=== PATIENT | female | born 1955 | race Caucasian/White ===

== ENCOUNTER 2016-10-05 14:55 | Inpatient (IN) | payer OTHER ==
[2016-10-05 17:54] VITALS: BMI 25.2
--- NOTE | 2016-10-05 18:21 | HP ---
COWS - Scale Resting Pulse: 1= ID [id number] Sweatin= Chills/Flushing Restless Observation: 1= Difficult to Sit Still Pupil Size: 1= Pupils >than Normal Bone or Joint Aches: 2= Severe Diffuse Aches Runny Nose/ Eye Tearin= Nasal Congestion GI Upset > 30mins: 2= Nausea/Diarrhea Tremor Observation: 2= Slight Tremor Visible Yawning Observation: 1= 1-2x During Session Anxiety or Irritability: 2=Irritable/Anxious Goose Flesh Skin: 0=Smooth Skin COWS Score: 14 Admission ROS S - [facility] Chief Complaint: withdrawal sx Allergies/Adverse Reactions: Allergies Allergy/AdvReac Type Severity Reaction Status Date / Time sulfur [From Sulfur-8] Allergy Unknown Verified 10/05/16 18:03 sulfur dioxide Allergy Verified 10/05/16 18:03 History of Present Illness: 60 years old female with long history of opiate nicotine dependence, lumbar arthritis, diabetes ii, gerd, hyperlipidemia, and anxiety depression is admitted to detox Exam Limitations: No Limitations - Ebola screening Have you traveled outside of the country in the last 21 days: No Have you had contact with anyone from an Ebola affected area: No Have you been sick,other than usual withdrawal symptoms: No Do you have a fever: No - Review of Systems Constitutional: Chills, Changes in sleep, Weight Stable EENT: reports: No Symptoms Reported Respiratory: reports: SOB with Exertion Cardiac: reports: No Symptoms Reported GI: reports: Diarrhea, Nausea, Poor Fluid Intake, Indigestion, Abdominal cramping : reports: No Symptoms Reported Musculoskeletal: reports: Back Pain, Joint Pain, Muscle Pain, Neck Pain Integumentary: reports: Change in Color, Lumps (iv opiate right inner fore arm) Neuro: reports: Tremors Endocrine: reports: No Symptoms Reported Hematology: reports: No Symptoms Reported Psychiatric: reports: Judgement Intact, Orientated x3, Anxious, Depressed Other Systems: Reviewed and Negative Patient History - Patient Medical History Hx Anemia: No Hx Asthma: Yes Hx Chronic Obstructive Pulmonary Disease (COPD): No Hx Cancer: No Hx Cardiac Disorders: No Hx Congestive Heart Failure: No Hx Hypertension: No Hx Hypercholesterolemia: Yes Hx Pacemaker: No HX Cerebrovascular Accident: No Hx Seizures: No Hx Dementia: No Hx Diabetes: Yes Hx Gastrointestinal Disorders: Yes Hx Liver Disease: No Hx Genitourinary Disorders: No Hx Sexually Transmitted Disorders: No Hx Renal Disease (ESRD): No Hx Thyroid Disease: No Hx Human Immunodeficiency Virus (HIV): No Hx Hepatitis C: No Hx Depression: Yes Hx Suicide Attempt: Yes (12 years old cut left wrist) Hx Bipolar Disorder: No Hx Schizophrenia: No - Patient Surgical History Past Surgical History: No - PPD History Previous Implant?: Yes Documented Results: Positive w/o proof Implanted On Prior R Admission?: No PPD to be Administered?: No - Reproductive History Patient is a Female of Child Bearing Age (11 -55 yrs old): No Patient : No - Smoking Cessation Smoking history: Current every day smoker Have you smoked in the past 12 months: Yes Aproximately how many cigarettes per day: 10 Cigars Per Day: 0 Hx Chewing Tobacco Use: No Initiated information on smoking cessation: Yes 'Breaking Loose' booklet given: 10/05/16 - Substance & Tx. History Hx Alcohol Use: No Hx Substance Use: Yes Substance Use Type: Cocaine, Opiates Hx Substance Use Treatment: Yes - Substances Abused Heroin Route: Injection Frequency: Daily Amount used: 4 bags Age of first use: 25 Date of Last Use: 10/05/16 Family Disease History - Family Disease History Family Disease History: Diabetes: Grandparent, Other: Father ( renal), Mother (alzeihmer) Admission Physical Exam S - Vital Signs Vital Signs: Vital Signs - 24 hr 10/05/16 17:51 Temperature 97.1 F L Pulse Rate 84 Respiratory 18 Rate Blood Pressure 113/67 - Physical General Appearance: Yes: Nourished, Appropriately Dressed, Mild Distress, Tremorous, Irritable, Sweating, Anxious HEENTM: Yes: Hearing grossly Normal, Normal ENT Inspection, Normocephalic, Normal Voice Respiratory: Yes: Chest Non-Tender, No Respiratory Distress, No Accessory Muscle Use, Wheezing, Expiration Neck: Yes: Supple, Trachea in good position Breast: Yes: Breasts Symetrical Cardiology: Yes: Regular Rhythm, Regular Rate, S1, S2 Abdominal: Yes: Non Tender, Soft, Increased Bowel Sounds Genitourinary: Yes: Within Normal Limits Back: Yes: Normal Inspection Musculoskeletal: Yes: full range of Motion, Gait Steady, Back pain, Muscle Pain Extremities: Yes: Normal Range of Motion, Non-Tender, Tremors, Swelling (right inner fore arm) Neurological: Yes: Fully Oriented, Alert, Motor Strength 5/5, Normal Response, Depressed Affect Integumentary: Yes: Warm, Track Hernandez Lymphatic: Yes: Within Normal Limits - Diagnostic (1) Opioid dependence with withdrawal Current Visit: Yes Status: Acute (2) Cocaine dependence, uncomplicated Current Visit: Yes Status: Chronic (3) GERD (gastroesophageal reflux disease) Current Visit: Yes Status: Acute Qualifiers: Esophagitis presence: without esophagitis Qualified Code(s): K21.9 - Gastro-esophageal reflux disease without esophagitis (4) Diabetes mellitus, type II, insulin dependent Current Visit: Yes Status: Acute (5) Chronic back pain Current Visit: Yes Status: Acute Qualifiers: Back pain location: low back pain Back pain laterality: left Sciatica presence: without sciatica Qualified Code(s): M54.5 - Low back pain; G89.29 - Other chronic pain (6) Hyperlipidemia associated with type 2 diabetes mellitus Current Visit: Yes Status: Acute (7) Anxiety and depression Current Visit: Yes Status: Suspected (8) Neuropathy Current Visit: Yes Status: Acute (9) Asthma Current Visit: Yes Status: Acute Qualifiers: Asthma severity: mild intermittent Asthma complication type: with status asthmaticus Qualified Code(s): J45.22 - Mild intermittent asthma with status asthmaticus (10) Nicotine dependence Current Visit: Yes Status: Acute Qualifiers: Nicotine product type: cigarettes Substance use status: in withdrawal Qualified Code(s): F17.213 - Nicotine dependence, cigarettes, with withdrawal (11) Cellulitis Current Visit: Yes Status: Acute Qualifiers: Site of cellulitis: extremity Site of cellulitis of extremity: upper extremity Laterality: right Qualified Code(s): L03.113 - Cellulitis of right upper limb (12) Positive PPD Current Visit: Yes Status: Resolved Cleared for Admission S - Detox or Rehab [facility] Level of Care: Medically Managed Detox Regimen/Protocol: Methadone [facility] Breath Alcohol Content Breath Alcohol Content: 0 Urine Pregancy Test - Result Urine Test Results: Negative- NO Line Present Urine Drug Screen - Results Drug Screen Negative: No Urine Drug Screen Results: MUKUND-Cocaine, OPI-Opiates, OXY-Oxycodone
[2016-10-05] MEDS ORDERED: MAGNESIUM CITRATE 300 ML BOTTLE PO PRN (18:32)
[2016-10-05] MEDS ORDERED: P-EPHED 60MG/TRIPROLIDI 2.5MG TABLET PO PRN (18:32)
[2016-10-05] MEDS ORDERED: MAGNESIUM HYDROX 2400MG/30ML ORAL SUSPENSION 30 ML CUP PO PRN (18:32)
[2016-10-05] MEDS ORDERED: diphenhydrAMINE HCL 50 MG CAPSULE PO PRN (18:32)
[2016-10-05] MEDS ORDERED: METHADONE HCL 10 MG TABLET (FOR DETOX USE ONLY) PO ONE ×2 (18:32→23:00)
[2016-10-05] MEDS ORDERED: guaiFENesin/D-METHORPHAN HB 10 ML UNIT-DOSE CUPS PO PRN (18:32)
[2016-10-05] MEDS ORDERED: MENTHOL/PHENOL 1 EACH UD MM PRN (18:32)
[2016-10-05] MEDS ORDERED: LOPERAMIDE HCL 2 MG CAPSULE PO PRN (18:32)
[2016-10-05] MEDS ORDERED: MAG HYDROX/AL HYDROX/SIMETH 30 ML UNIT-DOSE CUP PO PRN (18:32)
[2016-10-05] MEDS ORDERED: ALBUTEROL SO4 6.7 GM HFA INHALER IH PRN (18:41)
[2016-10-05] MEDS: NICOTINE POLACRILEX 2 MG GUM BC PRN (20:02)
[2016-10-05] MEDS: ACETAMINOPHEN 325 MG TABLET (FP) PO PRN (20:02)
[2016-10-05] MEDS: diazePAM 5 MG TABLET PO PRN (20:02)
[2016-10-05] MEDS: ATORVASTATIN CA 20 MG TABLET (FP) PO SCH (22:44)
[2016-10-05] MEDS: PREGABALIN 100 MG CAPSULE PO SCH (22:44)
[2016-10-05] MEDS: THIAMINE HCL 100 MG TABLET (FP) PO SCH (22:44)
[2016-10-05] MEDS: RANITIDINE HCL 150 MG TABLET (FP) PO SCH (22:44)
[2016-10-05] MEDS: INSULIN SLIDING SCALE (NOVOLOG) 1 VIAL SQ SCH (22:48)
[2016-10-05] MEDS: BACLOFEN 10 MG TABLET (FP) PO SCH (22:48)
[2016-10-05] MEDS: CEPHALEXIN MONOHYDRATE 500 MG CAPSULE (UD) PO SCH (23:39)
[2016-10-06] MEDS: CEPHALEXIN MONOHYDRATE 500 MG CAPSULE (UD) PO SCH ×4 (06:04→23:36)
[2016-10-06] MEDS: PREGABALIN 100 MG CAPSULE PO SCH ×3 (06:04→22:31)
[2016-10-06] MEDS: INSULIN SLIDING SCALE (NOVOLOG) 1 VIAL SQ SCH ×3 (07:27→17:30)
--- NOTE | 2016-10-06 08:37 | CONSULT ---
[facility] Psychiatric Consult - Data Date of interview: 10/06/16 Admission source: [facility] Identifying data: This is 60 years old female with psychiatric hospitalization history intoxicated with: Cocain, Heroin, Nicotine Substance Abuse History: - Results. Drug Screen Negative: No. Urine Drug Screen Results: MUKUND-Cocaine, OPI-Opiates, OXY-Oxycodone. - Smoking Cessation. Smoking history: Current every day smoker. Have you smoked in the past 12 months: Yes. Aproximately how many cigarettes per day: 10. Cigars Per Day: 0. Hx Chewing Tobacco Use: No. Initiated information on smoking cessation: Yes. 'Breaking Loose' booklet given: 10/05/16. - Substance & Tx. History. Hx Alcohol Use: No. Hx Substance Use: Yes. Substance Use Type: Cocaine, Opiates. Hx Substance Use Treatment: Yes. - Substances Abused. Heroin. Route: Injection. Frequency: Daily. Amount used: 4 bags. Age of first use: 25. Date of Last Use: 10/05/16 Medical History: Asthma, Cellu;litis history, LBP, DM-2, GERD, Muscle neuropathy , PPD+ history Psychiatric History: Patient reports histopry of depression and anxiety, reports unclear psychiatric admission on more then 5 years ago, poor historyan, reports taking prior to admission: Buspar 5mg po bid. Ambien 10mg po qhs. Zoiloft 10-0mg poqd Physical/Sexual Abuse/Trauma History: Denies, unclear Additional Comment: Drug Screen Negative: No. Urine Drug Screen Results: MUKUND- Cocaine, OPI-Opiates, OXY-Oxycodone. Buspar 5mg po bid. Ambien 10mg po qhs. Zoiloft 10-0mg poqd Mental Status Exam - Mental Status Exam Alert and Oriented to: Person Cognitive Function: Fair Patient Appearance: Unkempt Mood: Sad Affect: Flat Patient Behavior: Sedated Speech Pattern: Delayed Voice Loudness: Mildly Soft/Quiet Thought Process: Circumstantial Thought Disorder: Being Controlled Hallucinations: Denies Suicidal Ideation: Denies Homicidal Ideation: Denies Insight/Judgement: Fair Sleep: Difficulty falling asleep Appetite: Weight gain Muscle strength/Tone: Mild Hypotonicity Gait/Station: Shuffling Additional Comments: Buspar 5mg po bid. Ambien 10mg po qhs. Zoiloft 10-0mg poqd Psychiatric Findings - Problem List ([place] 1, 2,3) (1) Cellulitis Current Visit: Yes Status: Acute Qualifiers: Site of cellulitis: extremity Site of cellulitis of extremity: upper extremity Laterality: right Qualified Code(s): L03.113 - Cellulitis of right upper limb (2) Nicotine dependence Current Visit: Yes Status: Acute Qualifiers: Nicotine product type: cigarettes Substance use status: in withdrawal Qualified Code(s): F17.213 - Nicotine dependence, cigarettes, with withdrawal (3) Opioid dependence with withdrawal Current Visit: Yes Status: Acute (4) Cocaine dependence, uncomplicated Current Visit: Yes Status: Chronic (5) Anxiety and depression Current Visit: Yes Status: Suspected (6) Drug-induced mood disorder Current Visit: Yes Status: Acute - Initial Treatment Plan Initial Treatment Plan: Buspar 5mg po bid. Ambien 10mg po qhs. Zoiloft 10-0mg poqd
[2016-10-06] MEDS: ACETAMINOPHEN 325 MG TABLET (FP) PO PRN (09:00)
[2016-10-06] MEDS ORDERED: METHADONE HCL 10 MG TABLET (FOR DETOX USE ONLY) PO ONE ×2 (10:00→14:06)
[2016-10-06] MEDS ORDERED: NICOTINE 14 MG/24 HOURS TOPICAL PATCH TD SCH (10:00)
[2016-10-06 10:04] LABS: MCH 27.8 pg (25.7-33.7); MCHC 32.3 g/dl (32.0-36.0); MEAN CELL VOLUME 86.1 fl (80-96); MEAN PLT VOLUME 10.4 fl (7.5-11.1); PLATELET COUNT 155 K/MM3 (134-434); RDW 15.1 % (11.6-15.6); WHITE BLOOD COUNT 7.7 K/mm3 (4.0-10.0)
--- NOTE | 2016-10-06 10:06 | PN ---
[facility] COWS - Scale Resting Pulse: 0= [place] 80 or Below Sweatin= Chills/Flushing Restless Observation: 3= Extraneous Movement Pupil Size: 1= Pupils >than Normal Bone or Joint Aches: 2= Severe Diffuse Aches Runny Nose/ Eye Tearin= Runny Nose/Eyes GI Upset > 30mins: 2= Nausea/Diarrhea Tremor Observation of Outstretched Hands: 2= Slight Tremor Visible Yawning Observation: 2= >3x During Session Anxiety or Irritability: 2=Irritable/Anxious Goose Flesh Skin: 0=Smooth Skin COWS Score: 17 BHS Progress Note (SOAP) Subjective: ALERT,IRRITABLE,ANXIOUS,INTERRUPTED SLEEP,TREMOR,PAIN IN THE BODY AND BACK Objective: 10/06/16 10:04 Vital Signs Temperature 98.2 F 10/06/16 09:52 Pulse Rate 63 10/06/16 09:52 Respiratory Rate 18 10/06/16 09:52 Blood Pressure 102/65 10/06/16 09:52 O2 Sat by Pulse Oximetry (%) EKG NSR WITH SINUS ARRHYTHMIA NO CHEST PAIN,NO SOB,NO DIZZINESS Laboratory Last Values POC Glucometer 102 UNITS (()) 10/06/16 06:10 LABS PENDING Assessment: 10/06/16 10:06 WITHDRAWAL SYMPTOM Plan: CONTINUE DETOX,LIDODERM PATCH
[2016-10-06 10:22] LABS: ALBUMIN 3.7 g/dl (3.4-5.0); ALK PHOS 106 U/L (45-117); ANION GAP 8 (8-16); BILIRUBIN,TOTAL 0.3 mg/dL (0.2-1.0); CALCIUM 9.1 mg/dL (8.5-10.1); CO2 25 mmol/L (21-32); COCKROFT - GAULT 69.9635; CREATININE 0.9 mg/dL (0.55-1.02); GLUCOSE,RANDOM 94 mg/dL (74-106); SGOT/AST 30 U/L (15-37); SGPT/ALT 38 U/L (12-78); TOT PROT 7.3 g/dl (6.4-8.2)
[2016-10-06] MEDS: busPIRone HCL 5 MG TABLET PO SCH ×2 (11:17→22:31)
[2016-10-06] MEDS: ASPIRIN 81 MG CHEWABLE TABLETS PO SCH (11:17)
[2016-10-06] MEDS: LIDOCAINE 5% TOPICAL PATCH TP SCH (11:18)
[2016-10-06] MEDS: PRENATAL VITAMINS W/ FOLIC ACID TABLET (FP) PO SCH (11:18)
[2016-10-06] MEDS: SERTRALINE HCL 50 MG TABLET (FP) PO SCH (11:23)
[2016-10-06] MEDS: RANITIDINE HCL 150 MG TABLET (FP) PO SCH ×2 (11:23→22:31)
[2016-10-06] MEDS ORDERED: INSULIN (NOVOLOG) ASPART 100 UNITS/ML 10ML VIAL ONE (11:35)
--- NOTE | 2016-10-06 13:51 | PN ---
S Progress Note Note: patient did not receive methadone 20 mgs at 10 am,and lidoderm patch at 10 am now alert,oriented x3 ambulation demanding for medications methadone 20 mgs po now and lidoderm patch close monitoring
--- NOTE | 2016-10-06 13:58 | PN ---
[facility] Progress Note Note: attempted to reach [facility] for information unsuccessful
[2016-10-06] MEDS: NICOTINE POLACRILEX 2 MG GUM BC PRN ×2 (14:00→17:24)
--- NOTE | 2016-10-06 14:00 | PN ---
S Progress Note Note: addendum please disrecard note on this patient at 13.57,belong to other patient
[2016-10-06] MEDS ORDERED: LIDOCAINE 5% TOPICAL PATCH TP ONE (14:07)
[2016-10-06] MEDS: METHADONE HCL 10 MG TABLET (FOR DETOX USE ONLY) PO ONE (14:16)
[2016-10-06] MEDS: CYCLOBENZAPRINE HCL 10 MG TABLET (FP) PO PRN (17:52)
[2016-10-06] MEDS: NICOTINE 14 MG/24 HOURS TOPICAL PATCH TD SCH (19:58)
[2016-10-06] MEDS: ATORVASTATIN CA 20 MG TABLET (FP) PO SCH (22:31)
[2016-10-06] MEDS: THIAMINE HCL 100 MG TABLET (FP) PO SCH (22:31)
[2016-10-06] MEDS: BACLOFEN 10 MG TABLET (FP) PO SCH (22:55)
[2016-10-07] MEDS: CEPHALEXIN MONOHYDRATE 500 MG CAPSULE (UD) PO SCH ×4 (05:43→23:02)
[2016-10-07] MEDS: PREGABALIN 100 MG CAPSULE PO SCH ×3 (05:43→22:16)
[2016-10-07] MEDS: INSULIN SLIDING SCALE (NOVOLOG) 1 VIAL SQ SCH (07:11)
[2016-10-07] MEDS: CYCLOBENZAPRINE HCL 10 MG TABLET (FP) PO PRN (08:48)
--- NOTE | 2016-10-07 09:24 | PN ---
[facility] COWS - Scale Resting Pulse: 0= [place] 80 or Below Sweatin= Chills/Flushing Restless Observation: 3= Extraneous Movement Pupil Size: 1= Pupils >than Normal Bone or Joint Aches: 2= Severe Diffuse Aches Runny Nose/ Eye Tearin= Runny Nose/Eyes GI Upset > 30mins: 3= Vomiting/Diarrhea Tremor Observation of Outstretched Hands: 2= Slight Tremor Visible Yawning Observation: 1= 1-2x During Session Anxiety or Irritability: 2=Irritable/Anxious Goose Flesh Skin: 0=Smooth Skin COWS Score: 17 BHS Progress Note (SOAP) Subjective: alert,irritable,anxious,pain in body and back,anxious,pain in the back Objective: 10/07/16 09:23 Vital Signs Temperature 97.2 F L 10/07/16 06:38 Pulse Rate 64 10/07/16 06:38 Respiratory Rate 16 10/07/16 06:38 Blood Pressure 113/71 10/07/16 06:38 O2 Sat by Pulse Oximetry (%) Laboratory Last Values WBC 7.7 K/mm3 (4.0-10.0) 10/06/16 07:30 RBC 4.32 M/mm3 (3.60-5.2) 10/06/16 07:30 Hgb 12.0 GM/dL (10.7-15.3) 10/06/16 07:30 Hct 37.3 % (32.4-45.2) 10/06/16 07:30 MCV 86.1 fl (80-96) 10/06/16 07:30 MCHC 32.3 g/dl (32.0-36.0) 10/06/16 07:30 RDW 15.1 % (11.6-15.6) 10/06/16 07:30 Plt Count 155 K/MM3 (134-434) 10/06/16 07:30 MPV 10.4 fl (7.5-11.1) 10/06/16 07:30 Sodium 141 mmol/L (136-145) 10/06/16 07:30 Potassium 4.0 mmol/L (3.5-5.1) 10/06/16 07:30 Chloride 108 mmol/L (98-107) H 10/06/16 07:30 Carbon Dioxide 25 mmol/L (21-32) 10/06/16 07:30 Anion Gap 8 (8-16) 10/06/16 07:30 BUN 15 mg/dL (7-18) 10/06/16 07:30 Creatinine 0.9 mg/dL (0.55-1.02) 10/06/16 07:30 Creat Clearance w eGFR > 60 (>60) 10/06/16 07:30 POC Glucometer 133 UNITS (()) 10/07/16 05:49 Random Glucose 94 mg/dL (74-106) 10/06/16 07:30 Calcium 9.1 mg/dL (8.5-10.1) 10/06/16 07:30 Total Bilirubin 0.3 mg/dL (0.2-1.0) 10/06/16 07:30 AST 30 U/L (15-37) 10/06/16 07:30 ALT 38 U/L (12-78) 10/06/16 07:30 Alkaline Phosphatase 106 U/L (45-117) 10/06/16 07:30 Total Protein 7.3 g/dl (6.4-8.2) 10/06/16 07:30 Albumin 3.7 g/dl (3.4-5.0) 10/06/16 07:30 RPR Titer Nonreactive (NONREACTIVE) 10/06/16 07:30 Assessment: 10/07/16 09:24 withdrawal symptom Plan: continue detox,bgm monitoring
[2016-10-07] MEDS ORDERED: METHADONE HCL 5 MG TABLET (FOR DETOX USE ONLY) PO ONE (10:00)
[2016-10-07] MEDS: ASPIRIN 81 MG CHEWABLE TABLETS PO SCH (10:37)
[2016-10-07] MEDS: busPIRone HCL 5 MG TABLET PO SCH ×2 (10:37→22:16)
[2016-10-07] MEDS: SERTRALINE HCL 50 MG TABLET (FP) PO SCH (10:37)
[2016-10-07] MEDS: PRENATAL VITAMINS W/ FOLIC ACID TABLET (FP) PO SCH (10:37)
[2016-10-07] MEDS: RANITIDINE HCL 150 MG TABLET (FP) PO SCH ×2 (10:37→22:16)
[2016-10-07] MEDS: NICOTINE 14 MG/24 HOURS TOPICAL PATCH TD SCH (10:38)
[2016-10-07] MEDS: diazePAM 5 MG TABLET PO PRN ×3 (10:41→22:19)
[2016-10-07] MEDS: LIDOCAINE 5% TOPICAL PATCH TP SCH (10:42)
--- NOTE | 2016-10-07 11:50 | EKG ---
Test Reason : Blood Pressure : / mmHG Vent. Rate : 071 BPM Atrial Rate : 071 BPM P-R Int : 126 ms QRS Dur : 072 ms QT Int : 414 ms P-R-T Axes : 041 070 063 degrees QTc Int : 449 ms SINUS RHYTHM WITH MARKED SINUS ARRHYTHMIA SEPTAL INFARCT , AGE UNDETERMINED ABNORMAL ECG NO PREVIOUS ECGS AVAILABLE Confirmed by KAMLA EDMONDS MD ([id number]) on 10/07/2016 11:50:06 AM Referred By: Yusuf Jackson Confirmed By:KAMLA EDMONDS MD
[2016-10-07] MEDS: HYDROCORTISONE 1% TOPICAL CREAM 30 GM TUBE TP SCH ×2 (14:09→22:20)
[2016-10-07] MEDS: ATORVASTATIN CA 20 MG TABLET (FP) PO SCH (22:16)
[2016-10-07] MEDS: THIAMINE HCL 100 MG TABLET (FP) PO SCH (22:16)
[2016-10-07] MEDS: ZOLPIDEM TARTRATE 10 MG TABLET (PARK CARE ONLY) PO PRN (22:16)
[2016-10-07] MEDS: BACLOFEN 10 MG TABLET (FP) PO SCH (23:02)
[2016-10-08] MEDS: CEPHALEXIN MONOHYDRATE 500 MG CAPSULE (UD) PO SCH ×3 (05:25→17:07)
[2016-10-08] MEDS: PREGABALIN 100 MG CAPSULE PO SCH ×3 (05:25→22:27)
[2016-10-08] MEDS: INSULIN SLIDING SCALE (NOVOLOG) 1 VIAL SQ SCH (07:46)
--- NOTE | 2016-10-08 08:26 | PN ---
S Progress Note (SOAP) Subjective: ALERT,IRRITABLE,ANXIOUS,INTERRUPTED SLEEP,PAIN IN THE BODY AND BACK Objective: 10/08/16 08:22 Vital Signs Temperature 97.7 F 10/08/16 06:00 Pulse Rate 61 10/08/16 06:00 Respiratory Rate 18 10/08/16 06:00 Blood Pressure 117/70 10/08/16 06:00 O2 Sat by Pulse Oximetry (%) CHEST XRAY ON 10/06/16 SHOWED MASS 3.7 CM IN RIGHT UPPER LOBE [place] REGION ON 10/06/[address] OF CHEST TO BE DONE SCHEDULE AT [facility] TODAY 10/08/16 08:29 Assessment: 10/08/16 08:32 WITHDRAWAL SYMPTOM Plan: CONTINUE DETOX
[2016-10-08] MEDS: diazePAM 5 MG TABLET PO PRN (09:09)
[2016-10-08] MEDS: ASPIRIN 81 MG CHEWABLE TABLETS PO SCH (09:09)
[2016-10-08] MEDS: busPIRone HCL 5 MG TABLET PO SCH ×2 (09:09→22:27)
[2016-10-08] MEDS: RANITIDINE HCL 150 MG TABLET (FP) PO SCH ×2 (09:10→22:27)
[2016-10-08] MEDS: SERTRALINE HCL 50 MG TABLET (FP) PO SCH (09:10)
[2016-10-08] MEDS: NICOTINE 14 MG/24 HOURS TOPICAL PATCH TD SCH (09:14)
[2016-10-08] MEDS: LIDOCAINE 5% TOPICAL PATCH TP SCH (09:15)
[2016-10-08] MEDS: PRENATAL VITAMINS W/ FOLIC ACID TABLET (FP) PO SCH (09:30)
[2016-10-08] MEDS ORDERED: METHADONE HCL 5 MG TABLET (FOR DETOX USE ONLY) PO ONE (10:00)
[2016-10-08 10:08] LABS: URINE APPEARANCE CLEAR; URINE BILIRUBIN NEGATIVE (NEGATIVE); URINE BLOOD NEGATIVE (NEGATIVE); URINE COLOR STRAW; URINE GLUCOSE (UA) NEGATIVE (NEGATIVE); URINE KETONE NEGATIVE (NEGATIVE); URINE NITRITE NEGATIVE (NEGATIVE); URINE PROTEIN NEGATIVE (NEGATIVE); URINE UROBILINOGEN NEGATIVE E.U./dl (0.2-1.0)
[2016-10-08 10:09] LABS: URINE LEUK ESTERASE TRACE (NEGATIVE)
[2016-10-08 10:11] LABS: URINE BACTERIA RARE /hpf (NONE SEEN); URINE MUCUS RARE; URINE RBC <1 /hpf (0-3); URINE WBC 3 /hpf (3-5)
[2016-10-08] MEDS: HYDROCORTISONE 1% TOPICAL CREAM 30 GM TUBE TP SCH ×2 (11:33→23:30)
[2016-10-08] MEDS: CYCLOBENZAPRINE HCL 10 MG TABLET (FP) PO PRN (17:07)
[2016-10-08] MEDS: ZOLPIDEM TARTRATE 10 MG TABLET (PARK CARE ONLY) PO PRN (22:27)
[2016-10-08] MEDS: THIAMINE HCL 100 MG TABLET (FP) PO SCH (22:27)
[2016-10-08] MEDS: ATORVASTATIN CA 20 MG TABLET (FP) PO SCH (22:27)
[2016-10-08] MEDS: BACLOFEN 10 MG TABLET (FP) PO SCH (22:28)
[2016-10-09] MEDS: CEPHALEXIN MONOHYDRATE 500 MG CAPSULE (UD) PO SCH (00:45)
[2016-10-09] MEDS: PREGABALIN 100 MG CAPSULE PO SCH ×3 (05:40→22:17)
[2016-10-09] MEDS: CYCLOBENZAPRINE HCL 10 MG TABLET (FP) PO PRN ×3 (05:41→17:15)
[2016-10-09] MEDS: INSULIN SLIDING SCALE (NOVOLOG) 1 VIAL SQ SCH (06:20)
[2016-10-09] MEDS: ASPIRIN 81 MG CHEWABLE TABLETS PO SCH (11:00)
[2016-10-09] MEDS: SERTRALINE HCL 50 MG TABLET (FP) PO SCH (11:01)
[2016-10-09] MEDS: busPIRone HCL 5 MG TABLET PO SCH ×2 (11:01→22:17)
[2016-10-09] MEDS: METHADONE HCL 10 MG TABLET (FOR DETOX USE ONLY) PO ONE (11:01)
[2016-10-09] MEDS: RANITIDINE HCL 150 MG TABLET (FP) PO SCH ×2 (11:01→22:18)
[2016-10-09] MEDS: PRENATAL VITAMINS W/ FOLIC ACID TABLET (FP) PO SCH (11:01)
[2016-10-09] MEDS: HYDROCORTISONE 1% TOPICAL CREAM 30 GM TUBE TP SCH ×2 (11:02→22:18)
[2016-10-09] MEDS: NICOTINE 14 MG/24 HOURS TOPICAL PATCH TD SCH (11:02)
[2016-10-09] MEDS: LIDOCAINE 5% TOPICAL PATCH TP SCH (11:02)
--- NOTE | 2016-10-09 13:21 | PN ---
BHS Progress Note (SOAP) Subjective: ALERT,IRRITABLE,INTERRUPTED SLEEP Objective: 10/09/16 13:20 Vital Signs Temperature 99.1 F 10/09/16 10:22 Pulse Rate 76 10/09/16 10:22 Respiratory Rate 18 10/09/16 10:22 Blood Pressure 112/68 10/09/16 10:22 O2 Sat by Pulse Oximetry (%) Assessment: 10/09/16 13:21 WITHDRAWAL SYMPTOM 10/09/16 13:23 CT OF CHEST REPORT NOTED Plan: WITHDRAWAL SYMPTOM,EXPLAINED TO PATIENT FOR THE CT OF CHEST REPORT, ADVISE PATIENT TO GO TO SEE HER PMD ON Tue10/11/16 FOR EVALUATION AND TREATMENT AND REFER TO SPECIALIST
[2016-10-09] MEDS: BACLOFEN 10 MG TABLET (FP) PO SCH (22:17)
[2016-10-09] MEDS: THIAMINE HCL 100 MG TABLET (FP) PO SCH (22:17)
[2016-10-09] MEDS: ATORVASTATIN CA 20 MG TABLET (FP) PO SCH (22:17)
[2016-10-09] MEDS: ZOLPIDEM TARTRATE 10 MG TABLET (PARK CARE ONLY) PO PRN (22:17)
[2016-10-10] MEDS: PREGABALIN 100 MG CAPSULE PO SCH (05:32)
[2016-10-10] MEDS: CYCLOBENZAPRINE HCL 10 MG TABLET (FP) PO PRN (05:34)
[2016-10-10] MEDS ORDERED: METHADONE HCL 5 MG TABLET (FOR DETOX USE ONLY) PO ONE (06:00)
[2016-10-10] MEDS: INSULIN SLIDING SCALE (NOVOLOG) 1 VIAL SQ SCH (07:43)
--- NOTE | 2016-10-10 08:49 | PN ---
S Progress Note (SOAP) Subjective: ALERT,NO COMPLAINT Objective: 10/10/16 08:43 Vital Signs Temperature 98.1 F 10/10/16 06:45 Pulse Rate 73 10/10/16 06:45 Respiratory Rate 16 10/10/16 06:45 Blood Pressure 116/60 10/10/16 06:45 O2 Sat by Pulse Oximetry (%) Assessment: 10/10/16 08:43 DETOX COMPLETED,NO WITHDRAWAL SYMPTOM Plan: DISCHARGE TODAY,FOLLOW UP WITH AFTER CARE PROGRAM ARRANGEMENT,TO SEE DR ARSHAD PMD ON Tuesday10/11/16 FOR EVALUATION FOR MASS OF RIGHT LUNG
--- NOTE | 2016-10-10 08:50 | DS ---
[facility] Detox Discharge Summary Admission Date: 10/05/16 Discharge Date: 10/10/16 - History Present History: Alcohol Dependence, Opioid Dependence Additional Comments: FOLLOW UP WITH AFTER CARE PROGRAM ARRANGEMENT,TO SEE PMD ON MON 10/11/16 FOR MASS OF RIGHT LUNG AND MEDICAL PROBLEM Pertinent Past History: GERD TYPE 2 DM CHRONIC LOW [place] PAIN HYPERLIPIDEMIA NEUROPATHY ASTHMA ANXIETY AND DEPRESSION NICOTINE DEPENDENCE CELLULITIS POSITIVE PPD MASS OF RIGHT LUNG - Physical Exam Results Vital Signs: Vital Signs Temperature 98.1 F 10/10/16 06:45 Pulse Rate 73 10/10/16 06:45 Respiratory Rate 16 10/10/16 06:45 Blood Pressure 116/60 10/10/16 06:45 O2 Sat by Pulse Oximetry (%) Pertinent Admission Physical Exam Findings: WITHDRAWAL SYMPTOM - Treatment Hospital Course: Detox Protocol Followed, Detoxed Safely, Responded well, Discharged Condition Good Patient has Accepted a Rehab Referral to: DECLINED - Medication Discharge Medications: Ambulatory Orders Atorvastatin Ca [Lipitor] 20 mg PO HS 10/05/16 Baclofen [Lioresal -] 10 mg PO DAILY 10/05/16 Buspirone HCl [Buspar -] 5 mg PO BID 10/05/16 Diphenhydramine [Benadryl -] 50 mg PO HS 10/05/16 Esomeprazole Magnesium 40 mg PO DAILY 10/05/16 Ezetimibe [Zetia -] 10 mg PO DAILY 10/05/16 Metformin HCl [Glucophage -] 500 mg PO DAILY 10/05/16 Morphine Sulfate 15 mg PO DAILY 10/05/16 Oxycodone HCl/Acetaminophen [Endocet 7.5-325 mg Tablet] 1 each PO DAILY Pregabalin [Lyrica -] 100 mg PO TID 10/05/16 Sertraline HCl [Zoloft -] 50 mg PO DAILY 10/05/16 Zolpidem Tartrate [Ambien] 10 mg PO HS 10/05/16 Buspirone HCl [Buspar -] 5 mg PO BID #60 tablet 10/06/16 Sertraline HCl [Zoloft -] 100 mg PO DAILY #30 tablet 10/06/16 Zolpidem Tartrate [Ambien] 10 mg PO HS PRN #14 tablet MDD 10 10/06/16 - Diagnosis (1) Asthma Current Visit: Yes Status: Acute Qualifiers: Asthma severity: mild intermittent Asthma complication type: with status asthmaticus Qualified Code(s): J45.22 - Mild intermittent asthma with status asthmaticus (2) Cellulitis Current Visit: Yes Status: Acute Qualifiers: Site of cellulitis: extremity Site of cellulitis of extremity: upper extremity Laterality: right Qualified Code(s): L03.113 - Cellulitis of right upper limb (3) Chronic back pain Current Visit: Yes Status: Acute Qualifiers: Back pain location: low back pain Back pain laterality: left Sciatica presence: without sciatica Qualified Code(s): M54.5 - Low back pain; G89.29 - Other chronic pain (4) Diabetes mellitus, type II, insulin dependent Current Visit: Yes Status: Acute (5) GERD (gastroesophageal reflux disease) Current Visit: Yes Status: Acute Qualifiers: Esophagitis presence: without esophagitis Qualified Code(s): K21.9 - Gastro-esophageal reflux disease without esophagitis (6) Hyperlipidemia associated with type 2 diabetes mellitus Current Visit: Yes Status: Acute (7) Neuropathy Current Visit: Yes Status: Acute (8) Nicotine dependence Current Visit: Yes Status: Acute Qualifiers: Nicotine product type: cigarettes Substance use status: in withdrawal Qualified Code(s): F17.213 - Nicotine dependence, cigarettes, with withdrawal (9) Opioid dependence with withdrawal Current Visit: Yes Status: Acute (10) Cocaine dependence, uncomplicated Current Visit: Yes Status: Chronic (11) Anxiety and depression Current Visit: Yes Status: Suspected (12) Positive PPD Current Visit: Yes Status: Resolved (13) Mass of right lung Current Visit: Yes Status: Acute - AMA Did Patient Leave Against Medical Advice: No
[2016-10-10] MEDS: PRENATAL VITAMINS W/ FOLIC ACID TABLET (FP) PO SCH (09:16)
[2016-10-10] MEDS: RANITIDINE HCL 150 MG TABLET (FP) PO SCH (09:19)
[2016-10-10] MEDS: ASPIRIN 81 MG CHEWABLE TABLETS PO SCH (09:20)
[2016-10-10] MEDS: busPIRone HCL 5 MG TABLET PO SCH (09:23)
[2016-10-10 10:44] VITALS: BP 131/77; PULSE 78; TEMP 98.2
== END 2016-10-10 10:25 | disposition home or self-care (01) | DRG 897 ==
LOC: YASAS 14:55 → Y6N 18:47
PROVIDERS: ADMIT Internal Medicine Addiction Medicine; ATTEND Internal Medicine Addiction Medicine
PROC: HZ2ZZZZ Detoxification Services for Substance Abuse Treatment (ICD-10-PCS; principal; 2016-10-05)
DX: F11.23 Opioid dependence with withdrawal (principal); F14.20 Cocaine dependence, uncomplicated; J45.22 Mild intermittent asthma with status asthmaticus; L03.113 Cellulitis of right upper limb; F17.213 Nicotine dependence, cigarettes, with withdrawal; F41.8 Other specified anxiety disorders; F19.24 Other psychoactive substance dependence with psychoactive substance-induced mood disorder; M54.5 Low back pain; G89.29 Other chronic pain; E11.9 Type 2 diabetes mellitus without complications; Z79.4 Long term (current) use of insulin; K21.9 Gastro-esophageal reflux disease without esophagitis; E78.5 Hyperlipidemia, unspecified; G62.9 Polyneuropathy, unspecified; R76.11 Nonspecific reaction to tuberculin skin test without active tuberculosis; R91.8 Other nonspecific abnormal finding of lung field; I49.9 Cardiac arrhythmia, unspecified; Z91.5 Personal history of self-harm
CPT/HCPCS: 36415; 71020-TC; 71250-TC; 80053; 81003; 81015; 85027; 86593; 93005; 93010; J0475

== ENCOUNTER 2017-03-09 11:15 | Day surgery (SDC) | payer OTHER ==
[2017-03-07 13:53] VITALS: BMI 25.0
[2017-03-09] MEDS ORDERED: SUCCINYLCHOLINE CHLORIDE 200 MG/10 ML VIAL ONE (13:20)
[2017-03-09] MEDS ORDERED: MIDAZOLAM HCL 2 MG/2 ML SINGLE DOSE VIAL ONE (13:20)
[2017-03-09] MEDS ORDERED: PROPOFOL 20 ML ONE ×2 (13:20→13:38)
[2017-03-09] MEDS ORDERED: DEXAMETHASONE SOD PHOSPHATE 4 MG/1 ML VIAL ONE (13:46)
[2017-03-09] MEDS ORDERED: LIDOCAINE HCL/PF 2% SDV 5ML VIAL ONE (13:46)
--- NOTE | 2017-03-09 14:01 | PROC ---
Procedure Note Procedure: BRONCHOSCOPY NOTE After discussing the risks and benefits of the procedure including bleeding and pneumothorax, informed consent was obtained. Pt was placed under general anesthesia and intubated with size 8.0 ETT by anesthesia. [employer] video bronchoscope was passed via the ETT and the airways were examined down to the subsegmental level. The josue was slightly widened, there were scattered mucous plugs throughout the airways which were easily lavaged off. There were no endobronchial lesions noted on the left side, in the right upper lobe posterior segment, there was a white, smooth, irregular mass obstructing the segment. Area was biopsied and lavaged. Large piece of tissue removed with the forcep biopsy with a more vascular mass posterior to the removed piece which was also biopsied. Area visualized until hemostasis achieved. Bronchoscope then withdrawn and procedure terminated. No immediate complications. Pre-op Dx: lung mass Post-op Dx: r/o lung cancer Plan: - f/u pathology, cytology and cultures Jp Dias MD
[2017-03-09 15:30] VITALS: TEMP 98
[2017-03-09 17:48] VITALS: BP 140/80; PULSE 62
--- NOTE | 2017-03-11 13:56 | PATH ---
Surgical Pathology Report Patient Name: RUBY JHAVERI [facility]. Rec. #: [id number] /Age/Gender: 1955 (Age: 61) / F Account: [id number] Location: [facility] Taken: 03/09/2017 Received: 03/10/2017 Reported: 03/11/2017 Physicians: Lane Michele M.D. Specimen(s) Received RIGHT LOBE UPPPER BIOPSY Clinical History Right upper lobe mass Final Diagnosis LUNG, RIGHT UPPER LOBE, BRONCHOSCOPIC BIOPSY: HIGH-GRADE NEUROENDOCRINE CARCINOMA WITH EXTENSIVE NECROSIS, MOST CONSISTENT WITH SMALL CELL CARCINOMA (SEE COMMENT). Comment: The biopsy shows fragments of high grade neoplasm comprised of predominantly of round and fusiform intermediate size cells with hyperchromatic nuclei with inconspicuous nucleoli and a small amount of amphophilic cytoplasm with sheet-like growth. Frequent mitotic and apoptotic three figures are present. Extensive necrosis is present. Immunohistochemical stains performed and interpreted at [facility] show the tumor cells are positive for Ae1/Ae3 keratin with dot-like pattern, TTF1 and Synaptophysin immunostains; focal staining with CK7 and p63 is also seen; Chromogranin stain is negative. The morphologic findings and the immunoprofile are of high-grade neuroendocrine carcinoma, most consistent with small cell carcinoma. The case was discussed with Dr. Moreland and Dr. Dias on 03/11/17. Electronically Signed Shivam Michael M.D. Gross Description Received in formalin labeled "right upper lobe biopsy" is a 1.3 x 1.0 x 0.2 cm aggregate of wilcox soft tissue fragments. The formalin is filtered and the specimen is entirely submitted in one cassette. 03/10/201703/10/2017
--- NOTE | 2017-03-11 13:57 | PATH ---
Cytology Non-Gynecological Report Patient Name: RUBY JHAVERI [facility]. Rec. #: [id number] /Age/Gender: 1955 (Age: 61) / F Account: [id number] Location: [facility] Taken: 03/09/2017 Received: 03/10/2017 Reported: 03/11/2017 Physicians: Lane Michele M.D. Specimen(s) Received RIGHT UPPER LOBE BRONCHIAL WASHINGS Clinical History Right upper lobe mass Final Diagnosis LUNG, RIGHT UPPER LOBE, BRONCHIAL WASHINGS: SATISFACTORY FOR EVALUATION. POSITIVE FOR MALIGNANT CELLS. HIGH-GRADE NEUROENDOCRINE CARCINOMA, MOST CONSISTENT WITH SMALL CELL CARCINOMA (SEE COMMENT). Comment: Refer to [id number] for the biopsy and immunostains results. Electronically Signed Shivam Michael M.D. Gross Description Received is 20 cc old blood appearing fluid fresh. Two cytofunnel slides and one cell block are made.
== END 2017-03-09 17:10 | disposition home or self-care (01) ==
LOC: JASU-SURG 11:15
PROVIDERS: ATTEND Internal Medicine Pulmonary Disease
PROC: 0B9C8ZX Drainage of Right Upper Lung Lobe, Via Natural or Artificial Opening Endoscopic, Diagnostic (ICD-10-PCS; 2017-03-09)
PROC: 0BBC8ZX Excision of Right Upper Lung Lobe, Via Natural or Artificial Opening Endoscopic, Diagnostic (ICD-10-PCS; principal; 2017-03-09 12:30)
DX: C7A.1 Malignant poorly differentiated neuroendocrine tumors (principal)
CPT/HCPCS: 71010-TC; 87070; 87102; 87116; 87205; 87206; 87210; 88108; 88305-TC; 88341-TC; 88342-TC; 94760

== ENCOUNTER 2017-05-09 07:23 | Day surgery (SDC) | payer OTHER ==
[2017-05-09] MEDS ORDERED: SODIUM CHLORIDE 250 ML IV ONE ×2 (08:00→11:30)
[2017-05-09] MEDS ORDERED: ONDANSETRON INJECTION 12 MG in SODIUM CHLORIDE 50 ML IVPB ONE (08:30)
[2017-05-09] MEDS ORDERED: DEXAMETHASONE INJECTION 10 MG in SODIUM CHLORIDE 50 ML IVPB ONE (08:30)
[2017-05-09] MEDS ORDERED: SODIUM CHLORIDE IVPB ONE (09:00)
[2017-05-09] MEDS ORDERED: CARBOPLATIN IVPB ONE (09:00)
[2017-05-09] MEDS ORDERED: ETOPOSIDE IV ONE (09:30)
[2017-05-09] MEDS ORDERED: SODIUM CHLORIDE IV ONE (09:30)
[2017-05-09 09:47] LABS: BASOPHIL 0.9 % (0-2.0); EOSINOPHIL 0.3 % (0-4.5); MCHC 31.7 g/dl (32.0-36.0); MEAN CELL VOLUME 85.2 fl (80-96); MEAN PLT VOLUME 9.2 fl (7.5-11.1); NEUTROPHILS 68.8 % (42.8-82.8); PLATELET COUNT 295 K/MM3 (134-434); RDW 15.2 % (11.6-15.6); WHITE BLOOD COUNT 10.1 K/mm3 (4.0-10.0)
[2017-05-09 10:44] LABS: ALBUMIN 3.3 g/dl (3.4-5.0); ANION GAP 8 (8-16); BILIRUBIN,DIRECT < 0.2 mg/dL (0.0-0.2); CALCIUM 9.5 mg/dL (8.5-10.1); CO2 29 mmol/L (21-32); CREATININE 0.8 mg/dL (0.55-1.02); GLUCOSE,RANDOM 106 mg/dL (74-106); MAGNESIUM 2.4 mg/dL (1.8-2.4); SGOT/AST 13 U/L (15-37); SGPT/ALT 15 U/L (12-78)
[2017-05-09 10:45] LABS: ALK PHOS 123 U/L (45-117); BILIRUBIN,TOTAL 0.3 mg/dL (0.2-1.0); TOT PROT 8.5 g/dl (6.4-8.2)
[2017-05-09] MEDS ORDERED: PORTA CATH FLUSH 10 ML IVPUSH ONE (14:27)
[2017-05-09 16:16] VITALS: BP 108/63; PULSE 72; TEMP 98.3
== END 2017-05-09 16:05 | disposition home or self-care (01) ==
LOC: JONCCHEMO 07:23 → J7W 10:16 → JONCCHEMO 16:05
PROVIDERS: ATTEND Internal Medicine Hematology & Oncology
PROC: 3E04305 Introduction of Other Antineoplastic into Central Vein, Percutaneous Approach (ICD-10-PCS; principal; 2017-05-09)
PROC: 3E043GC Introduction of Other Therapeutic Substance into Central Vein, Percutaneous Approach (ICD-10-PCS; 2017-05-09)
PROC: 3E0437Z Introduction of Electrolytic and Water Balance Substance into Central Vein, Percutaneous Approach (ICD-10-PCS; 2017-05-09)
DX: Z51.11 Encounter for antineoplastic chemotherapy (principal); C34.91 Malignant neoplasm of unspecified part of right bronchus or lung
CPT/HCPCS: 36415; 80053; 80076; 82378; 83735; 85025; 96361; 96375; 96413; 96415; 96417; J9181

== ENCOUNTER 2017-05-10 07:17 | Day surgery (SDC) | payer OTHER ==
[2017-05-10] MEDS ORDERED: SODIUM CHLORIDE 250 ML IV ONE ×2 (08:00→11:00)
[2017-05-10] MEDS ORDERED: ONDANSETRON INJECTION 12 MG in SODIUM CHLORIDE 50 ML IVPB ONE (08:30)
[2017-05-10] MEDS ORDERED: DEXAMETHASONE INJECTION 10 MG in SODIUM CHLORIDE 50 ML IVPB ONE (08:30)
[2017-05-10] MEDS ORDERED: ETOPOSIDE IV ONE ×2 (09:00)
[2017-05-10] MEDS ORDERED: SODIUM CHLORIDE IV ONE ×2 (09:00)
[2017-05-10] MEDS ORDERED: PORTA CATH FLUSH 10 ML IVPUSH ONE (09:47)
[2017-05-10 17:16] VITALS: BP 114/68; PULSE 62; TEMP 97
== END 2017-05-10 16:00 | disposition home or self-care (01) ==
LOC: JONCCHEMO 07:17 → J7W 09:21 → JONCCHEMO 16:00
PROVIDERS: ATTEND Internal Medicine Hematology & Oncology
PROC: 3E04305 Introduction of Other Antineoplastic into Central Vein, Percutaneous Approach (ICD-10-PCS; principal; 2017-05-10)
PROC: 3E043GC Introduction of Other Therapeutic Substance into Central Vein, Percutaneous Approach (ICD-10-PCS; 2017-05-10)
PROC: 3E0437Z Introduction of Electrolytic and Water Balance Substance into Central Vein, Percutaneous Approach (ICD-10-PCS; 2017-05-10)
DX: Z51.11 Encounter for antineoplastic chemotherapy (principal); C34.91 Malignant neoplasm of unspecified part of right bronchus or lung
CPT/HCPCS: 96361; 96375; 96413; 96415; J9181

== ENCOUNTER 2017-05-11 06:47 | Day surgery (SDC) | payer OTHER ==
[2017-05-11] MEDS ORDERED: SODIUM CHLORIDE 250 ML IV ONE ×2 (08:00→11:00)
[2017-05-11] MEDS ORDERED: ONDANSETRON INJECTION 12 MG in SODIUM CHLORIDE 50 ML IVPB ONE (08:30)
[2017-05-11] MEDS ORDERED: DEXAMETHASONE INJECTION 10 MG in SODIUM CHLORIDE 50 ML IVPB ONE (08:30)
[2017-05-11] MEDS ORDERED: SODIUM CHLORIDE IV ONE (09:00)
[2017-05-11] MEDS ORDERED: ETOPOSIDE IV ONE (09:00)
[2017-05-11 09:27] LABS: BASOPHIL 0.7 % (0-2.0); EOSINOPHIL 0.1 % (0-4.5); MCH 26.6 pg (25.7-33.7); MCHC 31.1 g/dl (32.0-36.0); MEAN CELL VOLUME 85.7 fl (80-96); MEAN PLT VOLUME 10.7 fl (7.5-11.1); NEUTROPHILS 76.1 % (42.8-82.8); PLATELET COUNT 237 K/MM3 (134-434); RDW 15.4 % (11.6-15.6); WHITE BLOOD COUNT 17.2 K/mm3 (4.0-10.0)
[2017-05-11 09:30] LABS: ANION GAP 13 (8-16); BILIRUBIN,DIRECT < 0.2 mg/dL (0.0-0.2); CO2 20 mmol/L (21-32); CREATININE 0.9 mg/dL (0.55-1.02); GLUCOSE,RANDOM 122 mg/dL (74-106); SGOT/AST 13 U/L (15-37); SGPT/ALT 13 U/L (12-78)
[2017-05-11 09:32] LABS: ALK PHOS 108 U/L (45-117); BILIRUBIN,TOTAL 0.3 mg/dL (0.2-1.0); TOT PROT 7.9 g/dl (6.4-8.2)
[2017-05-11] MEDS ORDERED: LIDOCAINE 2.5%/PRILOCAINE 2.5% (5 Gram/TUBE) TP ONE (10:15)
[2017-05-11] MEDS ORDERED: PORTA CATH FLUSH 10 ML IVPUSH ONE (10:22)
[2017-05-11 11:02] VITALS: TEMP 98
[2017-05-11 15:19] VITALS: BP 135/81; PULSE 79
== END 2017-05-11 15:00 | disposition home or self-care (01) ==
LOC: JONCCHEMO 06:47 → J7W 10:02 → JONCCHEMO 15:00
PROVIDERS: ATTEND Internal Medicine Hematology & Oncology
DX: Z51.11 Encounter for antineoplastic chemotherapy (principal); C34.91 Malignant neoplasm of unspecified part of right bronchus or lung
CPT/HCPCS: 36415; 80053; 80076; 83735; 85025; 96361; 96375; 96413; 96415; J9181

== ENCOUNTER 2017-05-12 07:21 | Day surgery (SDC) | payer OTHER ==
[2017-05-12] MEDS ORDERED: PEGFILGRASTIM 6 MG/0.6 ML DISP.SYRIN SQ ONE (08:00)
[2017-05-12 16:56] VITALS: BP 118/69; PULSE 68; TEMP 98.2
== END 2017-05-12 14:50 | disposition home or self-care (01) ==
LOC: JONCCHEMO 07:21 → J7W 14:48 → JONCCHEMO 14:50
PROVIDERS: ATTEND Internal Medicine Hematology & Oncology
PROC: 3E013GC Introduction of Other Therapeutic Substance into Subcutaneous Tissue, Percutaneous Approach (ICD-10-PCS; principal; 2017-05-12)
DX: C34.91 Malignant neoplasm of unspecified part of right bronchus or lung (principal); Z76.89 Persons encountering health services in other specified circumstances
CPT/HCPCS: 96372; J2505

== ENCOUNTER 2017-05-30 07:17 | Day surgery (SDC) | payer OTHER ==
[2017-05-30] MEDS ORDERED: SODIUM CHLORIDE 250 ML IV ONE ×2 (08:00→11:30)
[2017-05-30] MEDS ORDERED: DEXAMETHASONE INJECTION 10 MG, ONDANSETRON INJECTION 12 MG in SODIUM CHLORIDE 100 ML IVPB ONE (08:30)
[2017-05-30] MEDS ORDERED: CARBOPLATIN IVPB ONE (09:00)
[2017-05-30] MEDS ORDERED: SODIUM CHLORIDE IVPB ONE (09:00)
[2017-05-30] MEDS ORDERED: SODIUM CHLORIDE IV ONE (09:30)
[2017-05-30] MEDS ORDERED: ETOPOSIDE IV ONE (09:30)
[2017-05-30 10:51] LABS: BASOPHIL 0.3 % (0-2.0); EOSINOPHIL 0.2 % (0-4.5); MCH 27.1 pg (25.7-33.7); MCHC 31.8 g/dl (32.0-36.0); MEAN CELL VOLUME 85.4 fl (80-96); MEAN PLT VOLUME 10.1 fl (7.5-11.1); NEUTROPHILS 65.3 % (42.8-82.8); PLATELET COUNT 148 K/MM3 (134-434); RDW 15.5 % (11.6-15.6); WHITE BLOOD COUNT 12.5 K/mm3 (4.0-10.0)
[2017-05-30 11:22] LABS: ALBUMIN 3.7 g/dl (3.4-5.0); ALK PHOS 123 U/L (45-117); ANION GAP 10 (8-16); BILIRUBIN,DIRECT < 0.2 mg/dL (0.0-0.2); BILIRUBIN,TOTAL 0.2 mg/dL (0.2-1.0); CALCIUM 9.4 mg/dL (8.5-10.1); CO2 30 mmol/L (21-32); CREATININE 1.7 mg/dL (0.55-1.02); GLUCOSE,RANDOM 130 mg/dL (74-106); MAGNESIUM 1.8 mg/dL (1.8-2.4); SGOT/AST 17 U/L (15-37); SGPT/ALT 20 U/L (12-78); TOT PROT 8.2 g/dl (6.4-8.2)
[2017-05-30] MEDS ORDERED: CYANOCOBALAMIN (VITAMIN B-12) 1000 MCG/1 ML VIAL IM ONE ×2 (11:45→12:45)
[2017-05-30] MEDS ORDERED: LEVOFLOXACIN 500 MG TABLET (FP) PO ONE ×2 (11:45→12:45)
[2017-05-30] MEDS ORDERED: POTASSIUM CHLORIDE TABS 20 MEQ TABLET.ER (FP) PO ONE (12:45)
[2017-05-30 17:23] VITALS: TEMP 98.7
[2017-05-30] MEDS ORDERED: PORTA CATH FLUSH 10 ML IVPUSH ONE (17:42)
[2017-05-30 17:59] VITALS: BP 146/82; PULSE 81
== END 2017-05-30 18:14 | disposition home or self-care (01) ==
LOC: JONCCHEMO 07:17 → J7W 11:29 → JONCCHEMO 18:14
PROVIDERS: ATTEND Internal Medicine Hematology & Oncology
DX: Z51.11 Encounter for antineoplastic chemotherapy (principal); C34.91 Malignant neoplasm of unspecified part of right bronchus or lung
CPT/HCPCS: 36415; 80053; 80076; 83735; 85025; 96361; 96366; 96367; 96375; 96413; 96415; 96417; J9181

== ENCOUNTER 2017-05-31 07:28 | Day surgery (SDC) | payer OTHER ==
[2017-05-31] MEDS ORDERED: SODIUM CHLORIDE 250 ML IV ONE ×2 (08:00→11:00)
[2017-05-31] MEDS ORDERED: DEXAMETHASONE INJECTION 10 MG, ONDANSETRON INJECTION 12 MG in SODIUM CHLORIDE 100 ML IVPB ONE (08:30)
[2017-05-31] MEDS ORDERED: WATER IV ONE (09:00)
[2017-05-31] MEDS ORDERED: DEXTROSE 5% IV ONE (09:00)
[2017-05-31] MEDS ORDERED: ETOPOSIDE IV ONE (09:00)
[2017-05-31] MEDS ORDERED: PORTA CATH FLUSH 10 ML IVPUSH ONE ×2 (10:37→15:40)
[2017-05-31 10:38] VITALS: PULSE 79; TEMP 98
[2017-05-31 15:45] VITALS: BP 129/69
== END 2017-05-31 15:25 | disposition home or self-care (01) ==
LOC: JONCCHEMO 07:28 → J7W 10:21 → JONCCHEMO 15:25
PROVIDERS: ATTEND Internal Medicine Hematology & Oncology
DX: Z51.11 Encounter for antineoplastic chemotherapy (principal); C34.91 Malignant neoplasm of unspecified part of right bronchus or lung
CPT/HCPCS: 96361; 96366; 96367; 96375; 96413; 96415; J9181

== ENCOUNTER 2017-06-01 07:27 | Day surgery (SDC) | payer OTHER ==
[2017-06-01] MEDS ORDERED: SODIUM CHLORIDE 250 ML IV ONE ×2 (08:00→11:00)
[2017-06-01] MEDS ORDERED: DEXAMETHASONE INJECTION 10 MG, ONDANSETRON INJECTION 12 MG in SODIUM CHLORIDE 100 ML IVPB ONE (08:30)
[2017-06-01] MEDS ORDERED: ETOPOSIDE IV ONE (09:00)
[2017-06-01] MEDS ORDERED: DEXTROSE 5% IV ONE (09:00)
[2017-06-01] MEDS ORDERED: WATER IV ONE (09:00)
[2017-06-01 13:17] LABS: MCH 27.2 pg (25.7-33.7); MCHC 31.7 g/dl (32.0-36.0); MEAN CELL VOLUME 85.7 fl (80-96); MEAN PLT VOLUME 10.3 fl (7.5-11.1); PLATELET COUNT 221 K/MM3 (134-434); RDW 15.5 % (11.6-15.6); WHITE BLOOD COUNT 8.6 K/mm3 (4.0-10.0)
[2017-06-01 13:51] LABS: ALBUMIN 3.5 g/dl (3.4-5.0); ANION GAP 10 (8-16); BILIRUBIN,TOTAL 0.2 mg/dL (0.2-1.0); CALCIUM 9.4 mg/dL (8.5-10.1); CO2 25 mmol/L (21-32); CREATININE 0.8 mg/dL (0.55-1.02); GLUCOSE,RANDOM 78 mg/dL (74-106); SGOT/AST 12 U/L (15-37); SGPT/ALT 16 U/L (12-78); TOT PROT 7.7 g/dl (6.4-8.2)
[2017-06-01 13:52] LABS: ALK PHOS 102 U/L (45-117)
[2017-06-01 15:14] VITALS: TEMP 98.4
[2017-06-01] MEDS ORDERED: PORTA CATH FLUSH 10 ML IVPUSH ONE (15:14)
[2017-06-01] MEDS: LEVOFLOXACIN 500 MG IVPB 500 MG/100 ML BAG IVPB ONE (15:53)
[2017-06-01 16:58] VITALS: BP 118/73; PULSE 73
== END 2017-06-01 16:59 | disposition home or self-care (01) ==
LOC: JONCCHEMO 07:27 → J7W 11:39 → JONCCHEMO 16:59
PROVIDERS: ATTEND Internal Medicine Hematology & Oncology
DX: Z51.11 Encounter for antineoplastic chemotherapy (principal); C34.91 Malignant neoplasm of unspecified part of right bronchus or lung
CPT/HCPCS: 36415; 80053; 85027; 96361; 96366; 96367; 96375; 96413; 96415; 96417; J9181

== ENCOUNTER 2017-06-02 07:21 | Day surgery (SDC) | payer OTHER ==
[2017-06-02] MEDS ORDERED: PEGFILGRASTIM 6 MG/0.6 ML DISP.SYRIN SQ ONE (08:00)
[2017-06-02 16:48] VITALS: BP 156/87; PULSE 84; TEMP 98.2
== END 2017-06-02 15:15 | disposition home or self-care (01) ==
LOC: JONCCHEMO 07:21 → J7W 14:30 → JONCCHEMO 15:15
PROVIDERS: ATTEND Internal Medicine Hematology & Oncology
PROC: 3E013GC Introduction of Other Therapeutic Substance into Subcutaneous Tissue, Percutaneous Approach (ICD-10-PCS; principal; 2017-06-02)
DX: C34.91 Malignant neoplasm of unspecified part of right bronchus or lung (principal)
CPT/HCPCS: 96372; J2505

== ENCOUNTER 2017-06-28 07:39 | Day surgery (SDC) | payer OTHER ==
[2017-06-28] MEDS ORDERED: SODIUM CHLORIDE 250 ML IV ONE ×2 (10:00→13:00)
[2017-06-28] MEDS ORDERED: ONDANSETRON INJECTION 12 MG, DEXAMETHASONE INJECTION 10 MG in SODIUM CHLORIDE 100 ML IVPB ONE (10:00)
[2017-06-28] MEDS ORDERED: CARBOPLATIN IVPB ONE (10:30)
[2017-06-28] MEDS ORDERED: SODIUM CHLORIDE IVPB ONE (10:30)
[2017-06-28] MEDS ORDERED: SODIUM CHLORIDE IV ONE (11:00)
[2017-06-28] MEDS ORDERED: ETOPOSIDE IV ONE (11:00)
[2017-06-28 12:29] LABS: BASO % 1.1 % (0-2.0); EOS % 1.3 % (0-4.5); HEMOGLOBIN 10.2 GM/dL (10.7-15.3); LYMPH % 23.7 % (8-40); MCH 27.7 pg (25.7-33.7); MCHC 30.9 g/dl (32.0-36.0); MEAN CELL VOLUME 89.6 fl (80-96); MEAN PLT VOLUME 9.6 fl (7.5-11.1); MONO % 12.2 % (3.8-10.2); NEUT % 61.7 % (42.8-82.8); PLATELET COUNT 254 K/MM3 (134-434); RBC 3.69 M/mm3 (3.60-5.2); WHITE BLOOD COUNT 7.7 K/mm3 (4.0-10.0)
[2017-06-28 12:43] LABS: ADD RBC MORPHOLOGY YES
[2017-06-28] MEDS ORDERED: CYANOCOBALAMIN (VITAMIN B-12) 1000 MCG/1 ML VIAL IM ONE ×2 (12:49→15:30)
[2017-06-28 12:52] LABS: ALBUMIN 3.8 g/dl (3.4-5.0); ANION GAP 9 (8-16); BILIRUBIN,DIRECT < 0.2 mg/dL (0.0-0.2); BILIRUBIN,TOTAL 0.4 mg/dL (0.2-1.0); BLOOD UREA NITROGEN 16 mg/dL (7-18); CALCIUM 9.4 mg/dL (8.5-10.1); CHLORIDE 104 mmol/L (98-107); CO2 23 mmol/L (21-32); CREATININE 0.9 mg/dL (0.55-1.02); GLUCOSE,RANDOM 130 mg/dL (74-106); POTASSIUM 4.4 mmol/L (3.5-5.1); SGOT/AST 21 U/L (15-37); SGPT/ALT 25 U/L (12-78); SODIUM 136 mmol/L (136-145); TOT PROT 8.2 g/dl (6.4-8.2)
[2017-06-28 12:53] LABS: ALK PHOS 112 U/L (45-117)
[2017-06-28 13:21] LABS: ANISOCYTOSIS 2+; PLATELET ESTIMATE NORMAL; TEAR DROP CELLS 1+
[2017-06-28 15:29] VITALS: TEMP 98.2
[2017-06-28] MEDS ORDERED: PORTA CATH FLUSH 10 ML IVPUSH ONE ×2 (15:29→17:57)
[2017-06-28 18:46] VITALS: BP 122/86; PULSE 68
== END 2017-06-28 18:49 | disposition home or self-care (01) ==
LOC: JONCCHEMO 07:39 → J7W 13:15 → JONCCHEMO 18:49
PROVIDERS: ATTEND Internal Medicine Hematology & Oncology
PROC: 3E04305 Introduction of Other Antineoplastic into Central Vein, Percutaneous Approach (ICD-10-PCS; principal; 2017-06-28)
PROC: 3E043GC Introduction of Other Therapeutic Substance into Central Vein, Percutaneous Approach (ICD-10-PCS; 2017-06-28)
PROC: 3E0437Z Introduction of Electrolytic and Water Balance Substance into Central Vein, Percutaneous Approach (ICD-10-PCS; 2017-06-28)
PROC: 3E013GC Introduction of Other Therapeutic Substance into Subcutaneous Tissue, Percutaneous Approach (ICD-10-PCS; 2017-06-28)
DX: Z51.11 Encounter for antineoplastic chemotherapy (principal); C34.91 Malignant neoplasm of unspecified part of right bronchus or lung; E53.8 Deficiency of other specified B group vitamins
CPT/HCPCS: 36415; 80053; 80076; 85025; 96361; 96367; 96372; 96375; 96413; 96415; 96417; J9181

== ENCOUNTER 2017-06-29 07:41 | Day surgery (SDC) | payer OTHER ==
[2017-06-29] MEDS ORDERED: SODIUM CHLORIDE IVPB ONE (10:00)
[2017-06-29] MEDS ORDERED: ONDANSETRON IVPB ONE (10:00)
[2017-06-29] MEDS ORDERED: DEXAMETHASONE IVPB ONE (10:00)
[2017-06-29] MEDS ORDERED: SODIUM CHLORIDE 250 ML IV ONE ×2 (10:45→13:00)
[2017-06-29] MEDS ORDERED: ETOPOSIDE IV ONE (11:00)
[2017-06-29] MEDS ORDERED: SODIUM CHLORIDE IV ONE (11:00)
[2017-06-29 17:48] VITALS: TEMP 97.9
[2017-06-29 18:26] VITALS: BP 143/82; PULSE 73
[2017-06-29] MEDS ORDERED: PORTA CATH FLUSH 10 ML IVPUSH ONE (20:00)
== END 2017-06-29 15:30 | disposition home or self-care (01) ==
LOC: JONCNONCHE 07:41 → J7W 09:13 → JONCNONCHE 15:30
PROVIDERS: ATTEND Internal Medicine Hematology & Oncology
DX: Z51.11 Encounter for antineoplastic chemotherapy (principal); C34.91 Malignant neoplasm of unspecified part of right bronchus or lung
CPT/HCPCS: 96361; 96367; 96375; 96413; 96415; J9181

== ENCOUNTER 2017-06-30 07:38 | Day surgery (SDC) | payer OTHER ==
[2017-06-30] MEDS ORDERED: SODIUM CHLORIDE IVPB ONE (10:00)
[2017-06-30] MEDS ORDERED: DEXAMETHASONE IVPB ONE (10:00)
[2017-06-30] MEDS ORDERED: ONDANSETRON IVPB ONE (10:00)
[2017-06-30] MEDS ORDERED: SODIUM CHLORIDE IV ONE (11:00)
[2017-06-30] MEDS ORDERED: ETOPOSIDE IV ONE (11:00)
[2017-06-30] MEDS ORDERED: SODIUM CHLORIDE 250 ML IV ONE (13:00)
[2017-06-30 14:30] VITALS: TEMP 98.5
[2017-06-30] MEDS ORDERED: PORTA CATH FLUSH 10 ML IVPUSH ONE (14:30)
[2017-06-30 15:45] VITALS: BP 123/71; PULSE 66
== END 2017-06-30 15:48 | disposition home or self-care (01) ==
LOC: JONCCHEMO 07:38 → J7W 11:51 → JONCCHEMO 15:48
PROVIDERS: ATTEND Internal Medicine Hematology & Oncology
PROC: 3E04305 Introduction of Other Antineoplastic into Central Vein, Percutaneous Approach (ICD-10-PCS; principal; 2017-06-30)
PROC: 3E043GC Introduction of Other Therapeutic Substance into Central Vein, Percutaneous Approach (ICD-10-PCS; 2017-06-30)
PROC: 3E0437Z Introduction of Electrolytic and Water Balance Substance into Central Vein, Percutaneous Approach (ICD-10-PCS; 2017-06-30)
DX: Z51.11 Encounter for antineoplastic chemotherapy (principal); C34.91 Malignant neoplasm of unspecified part of right bronchus or lung; E53.8 Deficiency of other specified B group vitamins; E78.00 Pure hypercholesterolemia, unspecified; D64.9 Anemia, unspecified; I10 Essential (primary) hypertension
CPT/HCPCS: 96361; 96367; 96375; 96413; 96415; J9181

== ENCOUNTER 2017-07-01 07:40 | Day surgery (SDC) | payer OTHER ==
[2017-07-01] MEDS ORDERED: PEGFILGRASTIM 6 MG/0.6 ML DISP.SYRIN SQ ONE (10:00)
[2017-07-01 17:40] VITALS: BP 136/77; PULSE 56; TEMP 97.6
== END 2017-07-01 15:35 | disposition home or self-care (01) ==
LOC: JONCNONCHE 07:40 → J7W 15:11 → JONCNONCHE 16:00
PROVIDERS: ATTEND Internal Medicine Hematology & Oncology
PROC: 3E013GC Introduction of Other Therapeutic Substance into Subcutaneous Tissue, Percutaneous Approach (ICD-10-PCS; principal; 2017-07-01)
DX: C34.91 Malignant neoplasm of unspecified part of right bronchus or lung (principal)
CPT/HCPCS: 96372; 96401; J2505

== ENCOUNTER 2017-07-18 07:41 | Day surgery (SDC) | payer OTHER ==
[2017-07-18] MEDS ORDERED: SODIUM CHLORIDE 250 ML IV ONE ×2 (08:00→11:30)
[2017-07-18] MEDS ORDERED: DEXAMETHASONE INJECTION 10 MG, ONDANSETRON INJECTION 12 MG in SODIUM CHLORIDE 100 ML IVPB ONE (08:30)
[2017-07-18] MEDS ORDERED: CARBOPLATIN IVPB ONE (09:00)
[2017-07-18] MEDS ORDERED: SODIUM CHLORIDE IVPB ONE (09:00)
[2017-07-18] MEDS ORDERED: DEXTROSE 5% IV ONE (09:30)
[2017-07-18] MEDS ORDERED: ETOPOSIDE IV ONE (09:30)
[2017-07-18] MEDS ORDERED: WATER IV ONE (09:30)
[2017-07-18 12:23] LABS: ALBUMIN 3.9 g/dl (3.4-5.0); ALK PHOS 131 U/L (45-117); ANION GAP 10 (8-16); BILIRUBIN,DIRECT < 0.2 mg/dL (0.0-0.2); BILIRUBIN,TOTAL 0.1 mg/dL (0.2-1.0); BLOOD UREA NITROGEN 7 mg/dL (7-18); CALCIUM 9.1 mg/dL (8.5-10.1); CHLORIDE 108 mmol/L (98-107); CO2 25 mmol/L (21-32); CREATININE 0.9 mg/dL (0.55-1.02); GLUCOSE,RANDOM 136 mg/dL (74-106); MAGNESIUM 1.7 mg/dL (1.8-2.4); SGOT/AST 15 U/L (15-37); SGPT/ALT 17 U/L (12-78); SODIUM 143 mmol/L (136-145); TOT PROT 8.1 g/dl (6.4-8.2)
[2017-07-18 12:30] LABS: BASO % 0.6 % (0-2.0); EOS % 0.9 % (0-4.5); HEMATOCRIT 30.4 % (32.4-45.2); HEMOGLOBIN 9.4 GM/dL (10.7-15.3); LYMPH % 37.9 % (8-40); MCH 28.7 pg (25.7-33.7); MCHC 30.9 g/dl (32.0-36.0); MEAN CELL VOLUME 92.9 fl (80-96); MEAN PLT VOLUME 9.8 fl (7.5-11.1); MONO % 9.7 % (3.8-10.2); NEUT % 50.9 % (42.8-82.8); PLATELET COUNT 75 K/MM3 (134-434); RBC 3.28 M/mm3 (3.60-5.2); WHITE BLOOD COUNT 7.6 K/mm3 (4.0-10.0)
[2017-07-18] MEDS ORDERED: CYANOCOBALAMIN (VITAMIN B-12) 1000 MCG/1 ML VIAL IM ONE (12:45)
[2017-07-18 19:06] VITALS: TEMP 98.3
[2017-07-18 19:12] VITALS: BP 126/73; PULSE 57
[2017-07-18] MEDS ORDERED: PORTA CATH FLUSH 10 ML IVPUSH ONE (19:12)
== END 2017-07-18 18:15 | disposition home or self-care (01) ==
LOC: JONCCHEMO 07:41 → J7W 12:07 → JONCCHEMO 18:15
PROVIDERS: ATTEND Internal Medicine Hematology & Oncology
DX: Z51.11 Encounter for antineoplastic chemotherapy (principal); C34.91 Malignant neoplasm of unspecified part of right bronchus or lung
CPT/HCPCS: 36415; 80053; 80076; 83735; 85025; 96361; 96367; 96372; 96375; 96413; 96415; 96417; J1100; J9181

== ENCOUNTER 2017-07-19 07:53 | Day surgery (SDC) | payer OTHER ==
[2017-07-19] MEDS ORDERED: SODIUM CHLORIDE 250 ML IV ONE ×2 (08:00→11:00)
[2017-07-19] MEDS ORDERED: ONDANSETRON INJECTION 12 MG, DEXAMETHASONE INJECTION 10 MG in SODIUM CHLORIDE 100 ML IVPB ONE (08:30)
[2017-07-19] MEDS ORDERED: DEXTROSE 5% IV ONE (09:00)
[2017-07-19] MEDS ORDERED: WATER IV ONE (09:00)
[2017-07-19] MEDS ORDERED: ETOPOSIDE IV ONE (09:00)
[2017-07-19 12:47] VITALS: TEMP 98.3
[2017-07-19] MEDS ORDERED: PORTA CATH FLUSH 10 ML IVPUSH ONE (16:47)
[2017-07-19 18:16] VITALS: BP 126/77; PULSE 59
== END 2017-07-19 17:40 | disposition home or self-care (01) ==
LOC: JONCCHEMO 07:53 → EDSTATUS 11:00 → J7W 12:20 → JONCCHEMO 17:40
PROVIDERS: ATTEND Internal Medicine Hematology & Oncology
DX: Z51.11 Encounter for antineoplastic chemotherapy (principal); C34.91 Malignant neoplasm of unspecified part of right bronchus or lung
CPT/HCPCS: 71260-TC; 74160-TC; 96361; 96367; 96375; 96413; 96415; C1887; J1100; J9181

== ENCOUNTER 2017-07-20 07:30 | Day surgery (SDC) | payer OTHER ==
[2017-07-20] MEDS ORDERED: SODIUM CHLORIDE 250 ML IV ONE ×2 (08:00→11:00)
[2017-07-20] MEDS ORDERED: DEXAMETHASONE INJECTION 10 MG, ONDANSETRON INJECTION 12 MG in SODIUM CHLORIDE 100 ML IVPB ONE (08:30)
[2017-07-20] MEDS ORDERED: WATER IV ONE (09:00)
[2017-07-20] MEDS ORDERED: ETOPOSIDE IV ONE (09:00)
[2017-07-20] MEDS ORDERED: DEXTROSE 5% IV ONE (09:00)
[2017-07-20 09:19] LABS: BASO % 0.4 % (0-2.0); HEMATOCRIT 32.3 % (32.4-45.2); LYMPH % 13.1 % (8-40); MCH 28.6 pg (25.7-33.7); MCHC 30.9 g/dl (32.0-36.0); MEAN CELL VOLUME 92.6 fl (80-96); MEAN PLT VOLUME 10.1 fl (7.5-11.1); MONO % 6.7 % (3.8-10.2); NEUT % 79.8 % (42.8-82.8); PLATELET COUNT 88 K/MM3 (134-434); RBC 3.48 M/mm3 (3.60-5.2); RDW 23.9 % (11.6-15.6); WHITE BLOOD COUNT 12.6 K/mm3 (4.0-10.0)
[2017-07-20 10:15] LABS: CHLORIDE 108 mmol/L (98-107); POTASSIUM 4.5 mmol/L (3.5-5.1); SODIUM 140 mmol/L (136-145)
[2017-07-20 11:10] LABS: ALBUMIN 4.2 g/dl (3.4-5.0); ALK PHOS 130 U/L (45-117); ANION GAP 12 (8-16); BILIRUBIN,DIRECT < 0.2 mg/dL (0.0-0.2); BILIRUBIN,TOTAL 0.2 mg/dL (0.2-1.0); BLOOD UREA NITROGEN 18 mg/dL (7-18); CO2 20 mmol/L (21-32); CREATININE 0.9 mg/dL (0.55-1.02); GLUCOSE,RANDOM 126 mg/dL (74-106); MAGNESIUM 2.1 mg/dL (1.8-2.4); SGOT/AST 19 U/L (15-37); SGPT/ALT 25 U/L (12-78); TOT PROT 8.6 g/dl (6.4-8.2)
[2017-07-20] MEDS ORDERED: PORTA CATH FLUSH 10 ML IVPUSH ONE (11:29)
[2017-07-20 16:42] VITALS: BP 110/72; PULSE 84
[2017-07-20 16:44] VITALS: TEMP 98
== END 2017-07-20 16:30 | disposition home or self-care (01) ==
LOC: JONCCHEMO 07:30 → J7W 10:31 → JONCCHEMO 16:30
PROVIDERS: ATTEND Internal Medicine Hematology & Oncology
DX: Z51.11 Encounter for antineoplastic chemotherapy (principal); C34.91 Malignant neoplasm of unspecified part of right bronchus or lung
CPT/HCPCS: 36415; 80053; 80076; 83735; 85025; 96361; 96367; 96375; 96413; 96415; J1100; J9181

== ENCOUNTER 2017-07-21 07:38 | Day surgery (SDC) | payer OTHER ==
[2017-07-21] MEDS ORDERED: PEGFILGRASTIM 6 MG/0.6 ML DISP.SYRIN SQ ONE (08:00)
[2017-07-21 15:51] VITALS: BP 123/70; PULSE 63; TEMP 97.5
== END 2017-07-21 14:55 | disposition home or self-care (01) ==
LOC: JONCCHEMO 07:38 → J7W 14:30 → JONCCHEMO 14:55
PROVIDERS: ATTEND Internal Medicine Hematology & Oncology
PROC: 3E013GC Introduction of Other Therapeutic Substance into Subcutaneous Tissue, Percutaneous Approach (ICD-10-PCS; principal; 2017-07-21)
DX: C34.91 Malignant neoplasm of unspecified part of right bronchus or lung (principal); Z76.89 Persons encountering health services in other specified circumstances
CPT/HCPCS: 96372; J2505

== ENCOUNTER 2017-08-16 07:30 | Day surgery (SDC) | payer OTHER ==
[2017-08-16] MEDS ORDERED: SODIUM CHLORIDE 250 ML IV ONE ×2 (09:00→13:00)
[2017-08-16] MEDS ORDERED: ONDANSETRON INJECTION 12 MG, DEXAMETHASONE INJECTION 10 MG in SODIUM CHLORIDE 100 ML IVPB ONE (10:00)
[2017-08-16] MEDS ORDERED: SODIUM CHLORIDE IVPB ONE (10:30)
[2017-08-16] MEDS ORDERED: CARBOPLATIN IVPB ONE (10:30)
[2017-08-16 10:52] LABS: EOS % 0.7 % (0-4.5); HEMATOCRIT 30.5 % (32.4-45.2); HEMOGLOBIN 9.8 GM/dL (10.7-15.3); LYMPH % 35.3 % (8-40); MCH 30.4 pg (25.7-33.7); MCHC 32.1 g/dl (32.0-36.0); MEAN CELL VOLUME 94.8 fl (80-96); MEAN PLT VOLUME 9.1 fl (7.5-11.1); MONO % 13.4 % (3.8-10.2); NEUT % 49.6 % (42.8-82.8); PLATELET COUNT 204 K/MM3 (134-434); RBC 3.22 M/mm3 (3.60-5.2); RDW 22.1 % (11.6-15.6); WHITE BLOOD COUNT 6.6 K/mm3 (4.0-10.0)
[2017-08-16] MEDS ORDERED: ETOPOSIDE IV ONE (11:00)
[2017-08-16] MEDS ORDERED: SODIUM CHLORIDE IV ONE (11:00)
[2017-08-16 11:23] LABS: ALBUMIN 4.1 g/dl (3.4-5.0); ANION GAP 6 (8-16); BILIRUBIN,DIRECT < 0.2 mg/dL (0.0-0.2); BILIRUBIN,TOTAL 0.3 mg/dL (0.2-1.0); BLOOD UREA NITROGEN 12 mg/dL (7-18); CALCIUM 8.4 mg/dL (8.5-10.1); CHLORIDE 109 mmol/L (98-107); CO2 24 mmol/L (21-32); CREATININE 0.8 mg/dL (0.55-1.02); GLUCOSE,RANDOM 97 mg/dL (74-106); POTASSIUM 4.6 mmol/L (3.5-5.1); SGOT/AST 19 U/L (15-37); SGPT/ALT 17 U/L (12-78); SODIUM 139 mmol/L (136-145); TOT PROT 7.8 g/dl (6.4-8.2)
[2017-08-16 11:24] LABS: ALK PHOS 122 U/L (45-117)
[2017-08-16] MEDS ORDERED: ALBUTEROL SO4 0.083% IH SOL 2.5 MG/3 ML VIAL.NEB. NEB ONE ×2 (12:00→17:15)
[2017-08-16] MEDS ORDERED: CYANOCOBALAMIN (VITAMIN B-12) 1000 MCG/1 ML VIAL IM ONE ×2 (14:15→16:30)
[2017-08-16] MEDS ORDERED: PORTA CATH FLUSH 10 ML IVPUSH ONE ×2 (16:47→17:00)
[2017-08-16 18:07] VITALS: TEMP 98.3
[2017-08-16 18:08] VITALS: BP 128/79; PULSE 64
== END 2017-08-16 18:11 | disposition home or self-care (01) ==
LOC: JONCCHEMO 07:30 → J7W 11:43 → JONCCHEMO 18:11
PROVIDERS: ATTEND Internal Medicine Hematology & Oncology
DX: Z51.11 Encounter for antineoplastic chemotherapy (principal); C34.91 Malignant neoplasm of unspecified part of right bronchus or lung
CPT/HCPCS: 36415; 80053; 80076; 83735; 85025; 94640; 96361; 96367; 96372; 96375; 96413; 96415; 96417; J1100; J9181

== ENCOUNTER 2017-08-17 07:53 | Day surgery (SDC) | payer OTHER ==
[2017-08-17] MEDS ORDERED: SODIUM CHLORIDE 250 ML IV ONE ×2 (09:00→12:30)
[2017-08-17 09:32] VITALS: TEMP 97.9
[2017-08-17] MEDS ORDERED: ONDANSETRON INJECTION 12 MG, DEXAMETHASONE INJECTION 10 MG in SODIUM CHLORIDE 100 ML IVPB ONE (10:00)
[2017-08-17] MEDS ORDERED: SODIUM CHLORIDE IV ONE (10:30)
[2017-08-17] MEDS ORDERED: PORTA CATH FLUSH 10 ML IVPUSH ONE ×2 (10:30→15:07)
[2017-08-17] MEDS ORDERED: ETOPOSIDE IV ONE (10:30)
[2017-08-17 15:12] VITALS: BP 139/66; PULSE 54
== END 2017-08-17 14:30 | disposition home or self-care (01) ==
LOC: JONCCHEMO 07:53 → J7W 09:16 → JONCCHEMO 14:30
PROVIDERS: ATTEND Internal Medicine Hematology & Oncology
DX: Z51.11 Encounter for antineoplastic chemotherapy (principal); C34.91 Malignant neoplasm of unspecified part of right bronchus or lung
CPT/HCPCS: 96361; 96367; 96375; 96413; 96415; J1100; J9181

== ENCOUNTER 2017-08-18 07:38 | Day surgery (SDC) | payer OTHER ==
[2017-08-18] MEDS ORDERED: SODIUM CHLORIDE 250 ML IV ONE ×2 (09:00→12:30)
[2017-08-18 09:14] LABS: BASO % 0.4 % (0-2.0); EOS % 0.1 % (0-4.5); HEMATOCRIT 28.5 % (32.4-45.2); LYMPH % 18.9 % (8-40); MCHC 31.4 g/dl (32.0-36.0); MEAN CELL VOLUME 95.3 fl (80-96); MONO % 7.7 % (3.8-10.2); NEUT % 72.9 % (42.8-82.8); PLATELET COUNT 185 K/MM3 (134-434); RBC 2.99 M/mm3 (3.60-5.2); WHITE BLOOD COUNT 11.2 K/mm3 (4.0-10.0)
[2017-08-18 09:41] LABS: ALBUMIN 3.9 g/dl (3.4-5.0); ALK PHOS 119 U/L (45-117); ANION GAP 7 (8-16); BILIRUBIN,DIRECT < 0.2 mg/dL (0.0-0.2); BILIRUBIN,TOTAL 0.2 mg/dL (0.2-1.0); BLOOD UREA NITROGEN 23 mg/dL (7-18); CALCIUM 8.4 mg/dL (8.5-10.1); CHLORIDE 112 mmol/L (98-107); CO2 22 mmol/L (21-32); CREATININE 0.9 mg/dL (0.55-1.02); GLUCOSE,RANDOM 91 mg/dL (74-106); MAGNESIUM 2.1 mg/dL (1.8-2.4); POTASSIUM 4.5 mmol/L (3.5-5.1); SGOT/AST 31 U/L (15-37); SGPT/ALT 64 U/L (12-78); SODIUM 141 mmol/L (136-145); TOT PROT 7.7 g/dl (6.4-8.2)
[2017-08-18] MEDS ORDERED: ONDANSETRON INJECTION 12 MG, DEXAMETHASONE INJECTION 10 MG in SODIUM CHLORIDE 100 ML IVPB ONE (10:00)
[2017-08-18 10:07] VITALS: TEMP 98
[2017-08-18] MEDS ORDERED: SODIUM CHLORIDE IV ONE (10:30)
[2017-08-18] MEDS ORDERED: ETOPOSIDE IV ONE (10:30)
[2017-08-18] MEDS ORDERED: PORTA CATH FLUSH 10 ML IVPUSH ONE (11:00)
[2017-08-18 15:05] VITALS: BP 121/70; PULSE 62
== END 2017-08-18 14:40 | disposition home or self-care (01) ==
LOC: JONCCHEMO 07:38 → J7W 09:44 → JONCCHEMO 14:40
PROVIDERS: ATTEND Internal Medicine Hematology & Oncology
DX: Z51.11 Encounter for antineoplastic chemotherapy (principal); C34.91 Malignant neoplasm of unspecified part of right bronchus or lung
CPT/HCPCS: 36415; 80053; 80076; 83735; 85025; 96361; 96367; 96375; 96413; 96415; J1100; J9181

== ENCOUNTER 2017-08-19 07:36 | Day surgery (SDC) | payer OTHER ==
[2017-08-19] MEDS ORDERED: PEGFILGRASTIM 6 MG/0.6 ML DISP.SYRIN SQ ONE (10:00)
[2017-08-19 15:48] VITALS: BP 118/67; PULSE 64; TEMP 99
== END 2017-08-19 15:49 | disposition home or self-care (01) ==
LOC: JONCCHEMO 07:36 → J7W 15:16 → JONCCHEMO 15:49
PROVIDERS: ATTEND Internal Medicine Hematology & Oncology
PROC: 3E013GC Introduction of Other Therapeutic Substance into Subcutaneous Tissue, Percutaneous Approach (ICD-10-PCS; principal; 2017-08-19)
DX: C34.91 Malignant neoplasm of unspecified part of right bronchus or lung (principal); Z76.89 Persons encountering health services in other specified circumstances
CPT/HCPCS: 96401; J2505

== ENCOUNTER 2017-09-05 07:38 | Day surgery (SDC) | payer OTHER ==
[2017-09-05] MEDS ORDERED: SODIUM CHLORIDE 250 ML IV ONE ×2 (09:00→13:00)
[2017-09-05] MEDS ORDERED: ONDANSETRON INJECTION 12 MG, DEXAMETHASONE INJECTION 10 MG in SODIUM CHLORIDE 100 ML IVPB ONE (10:00)
[2017-09-05] MEDS ORDERED: CARBOPLATIN IVPB ONE (10:30)
[2017-09-05] MEDS ORDERED: SODIUM CHLORIDE IVPB ONE (10:30)
[2017-09-05] MEDS ORDERED: ETOPOSIDE IV ONE (11:00)
[2017-09-05] MEDS ORDERED: SODIUM CHLORIDE IV ONE (11:00)
[2017-09-05 11:32] LABS: BASO % 0.3 % (0-2.0); EOS % 0.3 % (0-4.5); HEMATOCRIT 29.3 % (32.4-45.2); HEMOGLOBIN 9.6 GM/dL (10.7-15.3); LYMPH % 25.7 % (8-40); MCH 31.7 pg (25.7-33.7); MCHC 32.6 g/dl (32.0-36.0); MEAN CELL VOLUME 97.2 fl (80-96); MEAN PLT VOLUME 10.6 fl (7.5-11.1); MONO % 8.5 % (3.8-10.2); NEUT % 65.2 % (42.8-82.8); PLATELET COUNT 112 K/MM3 (134-434); RBC 3.02 M/mm3 (3.60-5.2); RDW 19.9 % (11.6-15.6); WHITE BLOOD COUNT 8.8 K/mm3 (4.0-10.0)
[2017-09-05 11:51] LABS: ALBUMIN 3.8 g/dl (3.4-5.0); ALK PHOS 139 U/L (45-117); ANION GAP 10 (8-16); BILIRUBIN,DIRECT < 0.2 mg/dL (0.0-0.2); BILIRUBIN,TOTAL 0.4 mg/dL (0.2-1.0); BLOOD UREA NITROGEN 9 mg/dL (7-18); CALCIUM 9.1 mg/dL (8.5-10.1); CHLORIDE 109 mmol/L (98-107); CO2 24 mmol/L (21-32); CREATININE 0.7 mg/dL (0.55-1.02); GLUCOSE,RANDOM 97 mg/dL (74-106); MAGNESIUM 2.2 mg/dL (1.8-2.4); POTASSIUM 3.9 mmol/L (3.5-5.1); SGOT/AST 14 U/L (15-37); SGPT/ALT 18 U/L (12-78); SODIUM 143 mmol/L (136-145); TOT PROT 8.1 g/dl (6.4-8.2)
[2017-09-05] MEDS ORDERED: DEXTROSE 5%-0.45% SALINE 1,000 ML with POTASSIUM CHLORIDE 20 MEQ, MAGNESIUM SULFATE 1 GM IVPB ONE (12:30)
[2017-09-05 18:42] VITALS: BP 126/74; PULSE 71; TEMP 98
[2017-09-05] MEDS ORDERED: PORTA CATH FLUSH 10 ML IVPUSH ONE (18:42)
[2017-09-06] MEDS ORDERED: ONDANSETRON INJECTION 12 MG, DEXAMETHASONE INJECTION 10 MG in SODIUM CHLORIDE 100 ML IVPB ONE (10:00)
== END 2017-09-05 16:35 | disposition home or self-care (01) ==
LOC: JONCCHEMO 07:38 → J7W 12:41 → JONCCHEMO 16:35
PROVIDERS: ATTEND Internal Medicine Hematology & Oncology
PROC: 3E0437Z Introduction of Electrolytic and Water Balance Substance into Central Vein, Percutaneous Approach (ICD-10-PCS; principal; 2017-09-05)
DX: C34.91 Malignant neoplasm of unspecified part of right bronchus or lung (principal)
CPT/HCPCS: 36415; 80053; 80076; 83735; 85025; 96361

== ENCOUNTER 2017-09-07 07:20 | Day surgery (SDC) | payer OTHER ==
[2017-09-07] MEDS ORDERED: SODIUM CHLORIDE 250 ML IV ONE ×2 (09:00→12:30)
[2017-09-07] MEDS ORDERED: ONDANSETRON INJECTION 12 MG, DEXAMETHASONE INJECTION 10 MG in SODIUM CHLORIDE 100 ML IVPB ONE (10:00)
[2017-09-07] MEDS ORDERED: SODIUM CHLORIDE IV ONE (10:30)
[2017-09-07] MEDS ORDERED: ETOPOSIDE IV ONE (10:30)
[2017-09-07 15:41] VITALS: TEMP 98.6
[2017-09-07 16:36] VITALS: BP 120/70; PULSE 63
== END 2017-09-07 16:05 | disposition home or self-care (01) ==
LOC: JONCCHEMO 07:20 → J7W 09:16 → JONCCHEMO 16:05
PROVIDERS: ATTEND Internal Medicine Hematology & Oncology
DX: Z51.11 Encounter for antineoplastic chemotherapy (principal); C34.91 Malignant neoplasm of unspecified part of right bronchus or lung
CPT/HCPCS: 96361; 96367; 96375; 96413; 96415; J1100; J9181

== ENCOUNTER 2017-09-08 07:24 | Day surgery (SDC) | payer OTHER ==
[2017-09-08] MEDS ORDERED: SODIUM CHLORIDE 250 ML IV ONE ×2 (09:00→12:30)
[2017-09-08 09:12] VITALS: TEMP 98.6
[2017-09-08 09:26] LABS: BASO % 0.5 % (0-2.0); EOS % 0.1 % (0-4.5); HEMATOCRIT 27.5 % (32.4-45.2); HEMOGLOBIN 8.7 GM/dL (10.7-15.3); LYMPH % 18.3 % (8-40); MCHC 31.7 g/dl (32.0-36.0); MEAN CELL VOLUME 97.6 fl (80-96); MEAN PLT VOLUME 10.7 fl (7.5-11.1); MONO % 6.2 % (3.8-10.2); NEUT % 74.9 % (42.8-82.8); PLATELET COUNT 114 K/MM3 (134-434); RBC 2.82 M/mm3 (3.60-5.2); RDW 18.8 % (11.6-15.6); WHITE BLOOD COUNT 12.8 K/mm3 (4.0-10.0)
[2017-09-08 09:51] LABS: ALBUMIN 4.2 g/dl (3.4-5.0); ALK PHOS 124 U/L (45-117); ANION GAP 9 (8-16); BILIRUBIN,TOTAL 0.3 mg/dL (0.2-1.0); CALCIUM 8.5 mg/dL (8.5-10.1); CHLORIDE 108 mmol/L (98-107); CO2 21 mmol/L (21-32); GLUCOSE,RANDOM 88 mg/dL (74-106); POTASSIUM 3.9 mmol/L (3.5-5.1); SGOT/AST 17 U/L (15-37); SGPT/ALT 24 U/L (12-78); SODIUM 138 mmol/L (136-145); TOT PROT 7.8 g/dl (6.4-8.2)
[2017-09-08] MEDS ORDERED: DEXAMETHASONE INJECTION 10 MG, ONDANSETRON INJECTION 12 MG in SODIUM CHLORIDE 100 ML IVPB ONE (10:00)
[2017-09-08 10:03] LABS: BLOOD UREA NITROGEN 15 mg/dL (7-18)
[2017-09-08 10:16] LABS: MAGNESIUM 1.9 mg/dL (1.8-2.4)
[2017-09-08 10:17] LABS: BILIRUBIN,DIRECT < 0.2 mg/dL (0.0-0.2)
[2017-09-08] MEDS ORDERED: SODIUM CHLORIDE IV ONE (10:30)
[2017-09-08] MEDS ORDERED: ETOPOSIDE IV ONE (10:30)
[2017-09-08 15:18] VITALS: BP 108/64; PULSE 70
[2017-09-08] MEDS ORDERED: PORTA CATH FLUSH 10 ML IVPUSH ONE (16:10)
== END 2017-09-08 15:18 | disposition home or self-care (01) ==
LOC: JONCCHEMO 07:24
PROVIDERS: ATTEND Internal Medicine Hematology & Oncology
PROC: 3E0437Z Introduction of Electrolytic and Water Balance Substance into Central Vein, Percutaneous Approach (ICD-10-PCS; principal; 2017-09-08)
DX: Z51.11 Encounter for antineoplastic chemotherapy (principal); C34.91 Malignant neoplasm of unspecified part of right bronchus or lung
CPT/HCPCS: 36415; 80053; 80076; 83735; 85025; 96360; 96361; J1100; J9181

== ENCOUNTER 2017-09-09 07:45 | Day surgery (SDC) | payer OTHER ==
[2017-09-09] MEDS ORDERED: PEGFILGRASTIM 6 MG/0.6 ML DISP.SYRIN SQ ONE (10:00)
[2017-09-09 16:56] VITALS: BP 109/69; PULSE 69; TEMP 99.1
== END 2017-09-09 15:00 | disposition home or self-care (01) ==
LOC: JONCCHEMO 07:45 → J7W 14:36 → JONCCHEMO 15:00
PROVIDERS: ATTEND Internal Medicine Hematology & Oncology
PROC: 3E013GC Introduction of Other Therapeutic Substance into Subcutaneous Tissue, Percutaneous Approach (ICD-10-PCS; principal; 2017-09-09)
DX: C34.91 Malignant neoplasm of unspecified part of right bronchus or lung (principal)
CPT/HCPCS: 96372; J2505

== ENCOUNTER 2019-02-19 07:12 | Day surgery (SDC) | payer OTHER ==
[2019-02-19] MEDS ORDERED: DEXAMETHASONE SODIUM PHOSPHATE 10 MG, ONDANSETRON INJECTION 8 MG in SODIUM CHLORIDE 100 ML IVPB ONE (09:30)
[2019-02-19] MEDS ORDERED: SODIUM CHLORIDE IVPB ONE (10:00)
[2019-02-19] MEDS ORDERED: CARBOPLATIN IVPB ONE (10:00)
[2019-02-19] MEDS ORDERED: ETOPOSIDE IV ONE (10:30)
[2019-02-19] MEDS ORDERED: SODIUM CHLORIDE IV ONE (10:30)
[2019-02-19] MEDS ORDERED: SODIUM CHLORIDE 250 ML IV ONE (12:30)
[2019-02-19 12:53] LABS: BILIRUBIN,DIRECT 0.1 mg/dL (0.0-0.2); BILIRUBIN,TOTAL 0.1 mg/dL (0.2-1); BLOOD UREA NITROGEN 19.9 mg/dL (7-18); CALCIUM 9.3 mg/dL (8.5-10.1); MAGNESIUM 2.2 mg/dL (1.8-2.4); POTASSIUM 3.7 mmol/L (3.5-5.1); TOT PROT 7.7 g/dl (6.4-8.2)
[2019-02-19] MEDS ORDERED: ALPRAZolam 0.25 MG TABLET PO ONE (13:15)
[2019-02-19] MEDS ORDERED: traMADol HCL 50 MG TABLET PO ONE (13:15)
[2019-02-19 13:16] LABS: BASO % 0.5 % (0-2.0); EOS % 0.1 % (0-4.5); HEMATOCRIT 35.7 % (32.4-45.2); HEMOGLOBIN 11.5 GM/dL (10.7-15.3); MCH 30.4 pg (25.7-33.7); MCHC 32.3 g/dl (32.0-36.0); MEAN CELL VOLUME 94.1 fl (80-96); NEUT % 74.4 % (42.8-82.8); PLATELET COUNT 146 K/MM3 (134-434); RBC 3.79 M/mm3 (3.60-5.2); RDW 16.2 % (11.6-15.6); WHITE BLOOD COUNT 7.6 K/mm3 (4.0-10.0)
[2019-02-19 17:10] VITALS: TEMP 98.4
[2019-02-19] MEDS ORDERED: PORTA CATH FLUSH 10 ML IVPUSH ONE (17:10)
[2019-02-19 17:11] VITALS: BP 141/84; PULSE 68
== END 2019-02-19 17:47 | disposition home or self-care (01) ==
LOC: JONCCHEMO 07:12 → J7W 11:36 → JONCCHEMO 17:47
PROVIDERS: ATTEND Internal Medicine Hematology & Oncology
DX: Z51.11 Encounter for antineoplastic chemotherapy (principal); C34.91 Malignant neoplasm of unspecified part of right bronchus or lung
CPT/HCPCS: 36415; 80048; 80076; 83735; 85025; 87040; 96361; 96367; 96375; 96413; 96415; 96417; J2405; J9181

== ENCOUNTER 2019-02-20 07:10 | Day surgery (SDC) | payer OTHER ==
[2019-02-20] MEDS ORDERED: DEXAMETHASONE SODIUM PHOSPHATE 10 MG, ONDANSETRON INJECTION 8 MG in SODIUM CHLORIDE 100 ML IVPB ONE (09:30)
[2019-02-20] MEDS ORDERED: ETOPOSIDE IV ONE (10:00)
[2019-02-20] MEDS ORDERED: SODIUM CHLORIDE IV ONE (10:00)
[2019-02-20] MEDS ORDERED: SODIUM CHLORIDE 250 ML IV ONE ×2 (11:00→12:00)
[2019-02-20] MEDS ORDERED: ALPRAZolam 0.25 MG TABLET PO ONE (11:45)
[2019-02-20] MEDS ORDERED: traMADol HCL 50 MG TABLET PO ONE (12:15)
[2019-02-20 17:07] VITALS: TEMP 98.9
[2019-02-20] MEDS ORDERED: PORTA CATH FLUSH 10 ML IVPUSH ONE (17:07)
[2019-02-20 17:08] VITALS: BP 136/70; PULSE 67
== END 2019-02-20 14:35 | disposition home or self-care (01) ==
LOC: JONCCHEMO 07:10 → J7W 10:39 → JONCCHEMO 14:35
PROVIDERS: ATTEND Internal Medicine Hematology & Oncology
DX: Z51.11 Encounter for antineoplastic chemotherapy (principal); C34.91 Malignant neoplasm of unspecified part of right bronchus or lung
CPT/HCPCS: 96367; 96375; 96413; 96415; J2405; J9181

== ENCOUNTER 2019-02-21 07:10 | Day surgery (SDC) | payer OTHER ==
[2019-02-21] MEDS ORDERED: DEXAMETHASONE SODIUM PHOSPHATE 10 MG, ONDANSETRON INJECTION 8 MG in SODIUM CHLORIDE 100 ML IVPB ONE (09:30)
[2019-02-21] MEDS ORDERED: ETOPOSIDE IV ONE (10:00)
[2019-02-21] MEDS ORDERED: SODIUM CHLORIDE IV ONE (10:00)
[2019-02-21] MEDS ORDERED: SODIUM CHLORIDE 250 ML IV ONE (10:00)
[2019-02-21] MEDS ORDERED: ALPRAZolam 0.25 MG TABLET PO ONE (10:45)
[2019-02-21] MEDS ORDERED: traMADol HCL 50 MG TABLET PO ONE (10:45)
[2019-02-21 13:53] VITALS: TEMP 99
[2019-02-21 18:11] VITALS: BP 147/77; PULSE 65
== END 2019-02-21 13:56 | disposition home or self-care (01) ==
LOC: JONCCHEMO 07:10 → J7W 10:18 → JONCCHEMO 13:56
PROVIDERS: ATTEND Internal Medicine Hematology & Oncology
DX: Z51.11 Encounter for antineoplastic chemotherapy (principal); C34.91 Malignant neoplasm of unspecified part of right bronchus or lung
CPT/HCPCS: 96367; 96375; 96413; 96415; J2405; J9181

== ENCOUNTER 2019-02-22 07:02 | Day surgery (SDC) | payer OTHER ==
[2019-02-22] MEDS ORDERED: SODIUM CHLORIDE 250 ML IV ONE (10:00)
[2019-02-22] MEDS ORDERED: PEGFILGRASTIM 6 MG/0.6 ML DISP.SYRIN SQ ONE (10:00)
[2019-02-22 14:40] VITALS: BP 137/72; PULSE 64; TEMP 98.8
== END 2019-02-22 14:40 | disposition home or self-care (01) ==
LOC: JONCCHEMO 07:02 → J7W 14:22 → JONCCHEMO 14:40
PROVIDERS: ATTEND Internal Medicine Hematology & Oncology
PROC: 3E013GC Introduction of Other Therapeutic Substance into Subcutaneous Tissue, Percutaneous Approach (ICD-10-PCS; principal; 2019-02-22)
DX: C34.91 Malignant neoplasm of unspecified part of right bronchus or lung (principal); Z76.89 Persons encountering health services in other specified circumstances
CPT/HCPCS: 96372; J2505

== ENCOUNTER 2019-03-12 06:17 | Day surgery (SDC) | payer OTHER ==
[2019-03-12] MEDS ORDERED: DEXAMETHASONE SODIUM PHOSPHATE 10 MG, ONDANSETRON INJECTION 8 MG in SODIUM CHLORIDE 100 ML IVPB ONE (10:00)
[2019-03-12] MEDS ORDERED: CARBOPLATIN IVPB ONE (10:30)
[2019-03-12] MEDS ORDERED: SODIUM CHLORIDE IVPB ONE (10:30)
[2019-03-12] MEDS ORDERED: SODIUM CHLORIDE IV ONE (11:00)
[2019-03-12] MEDS ORDERED: ETOPOSIDE IV ONE (11:00)
[2019-03-12 11:50] LABS: BASO % 0.2 % (0-2.0); HEMATOCRIT 32.9 % (32.4-45.2); HEMOGLOBIN 10.7 GM/dL (10.7-15.3); LYMPH % 7.1 % (8-40); MCH 30.5 pg (25.7-33.7); MCHC 32.4 g/dl (32.0-36.0); MEAN CELL VOLUME 94.1 fl (80-96); MEAN PLT VOLUME 9.5 fl (7.5-11.1); MONO % 5.6 % (3.8-10.2); NEUT % 87.1 % (42.8-82.8); PLATELET COUNT 89 K/MM3 (134-434); RDW 17.7 % (11.6-15.6); WHITE BLOOD COUNT 18.1 K/mm3 (4.0-10.0)
[2019-03-12 12:22] LABS: ALBUMIN 4.1 g/dl (3.4-5.0); BILIRUBIN,TOTAL 0.2 mg/dL (0.2-1); BLOOD UREA NITROGEN 24.8 mg/dL (7-18); CALCIUM 9.2 mg/dL (8.5-10.1); CREATININE 0.9 mg/dL (0.55-1.3); MAGNESIUM 2.4 mg/dL (1.8-2.4); POTASSIUM 4.6 mmol/L (3.5-5.1); TOT PROT 7.2 g/dl (6.4-8.2)
[2019-03-12] MEDS ORDERED: SODIUM CHLORIDE 250 ML IV ONE (13:00)
[2019-03-12] MEDS ORDERED: ALPRAZolam 0.25 MG TABLET PO ONE (13:15)
[2019-03-12] MEDS ORDERED: ALPRAZolam 0.25 MG TABLET PO SCH (13:15)
[2019-03-12] MEDS ORDERED: traMADol HCL 50 MG TABLET PO SCH (13:15)
[2019-03-12] MEDS ORDERED: traMADol HCL 50 MG TABLET PO ONE (13:15)
[2019-03-12 14:10] LABS: ANISOCYTOSIS 1+; MACROCYTOSIS 1+; PLATELET ESTIMATE DECREASED
[2019-03-12 19:02] VITALS: TEMP 98
[2019-03-12 19:10] VITALS: BP 167/67; PULSE 62
[2019-03-12] MEDS ORDERED: PORTA CATH FLUSH 10 ML IVPUSH ONE (19:10)
== END 2019-03-12 17:45 | disposition home or self-care (01) ==
LOC: JONCCHEMO 06:17 → J7W 12:22 → JONCCHEMO 17:45
PROVIDERS: ATTEND Internal Medicine Hematology & Oncology
DX: Z51.11 Encounter for antineoplastic chemotherapy (principal); C34.91 Malignant neoplasm of unspecified part of right bronchus or lung
CPT/HCPCS: 36415; 80053; 83735; 85025; 96367; 96375; 96413; 96415; 96417; J9181

== ENCOUNTER 2019-03-13 06:04 | Day surgery (SDC) | payer OTHER ==
[2019-03-13] MEDS ORDERED: ALPRAZolam 0.25 MG TABLET PO ONE (10:00)
[2019-03-13] MEDS ORDERED: traMADol HCL 50 MG TABLET PO ONE (10:00)
[2019-03-13] MEDS ORDERED: DEXAMETHASONE SODIUM PHOSPHATE 10 MG, ONDANSETRON INJECTION 8 MG in SODIUM CHLORIDE 100 ML IVPB ONE (10:00)
[2019-03-13] MEDS ORDERED: SODIUM CHLORIDE IV ONE (10:30)
[2019-03-13] MEDS ORDERED: ETOPOSIDE IV ONE (10:30)
[2019-03-13] MEDS ORDERED: ALPRAZolam 0.25 MG TABLET PO SCH (11:15)
[2019-03-13] MEDS ORDERED: SODIUM CHLORIDE 250 ML IV ONE (12:30)
[2019-03-13] MEDS ORDERED: PORTA CATH FLUSH 10 ML IVPUSH ONE (18:06)
[2019-03-13 18:07] VITALS: BP 132/74; PULSE 69; TEMP 98.8
== END 2019-03-13 15:00 | disposition home or self-care (01) ==
LOC: JONCCHEMO 06:04 → J7W 10:48 → JONCCHEMO 15:00
PROVIDERS: ATTEND Internal Medicine Hematology & Oncology
DX: Z51.11 Encounter for antineoplastic chemotherapy (principal); C34.91 Malignant neoplasm of unspecified part of right bronchus or lung
CPT/HCPCS: 96367; 96375; 96413; 96415; J9181

== ENCOUNTER 2019-03-14 05:40 | Day surgery (SDC) | payer OTHER ==
[2019-03-14] MEDS ORDERED: ALPRAZolam 0.25 MG TABLET PO ONE (10:00)
[2019-03-14] MEDS ORDERED: DEXAMETHASONE SODIUM PHOSPHATE 10 MG, ONDANSETRON INJECTION 8 MG in SODIUM CHLORIDE 100 ML IVPB ONE (10:00)
[2019-03-14] MEDS ORDERED: traMADol HCL 50 MG TABLET PO ONE (10:00)
[2019-03-14] MEDS ORDERED: ETOPOSIDE IV ONE (10:30)
[2019-03-14] MEDS ORDERED: SODIUM CHLORIDE IV ONE (10:30)
[2019-03-14] MEDS ORDERED: SODIUM CHLORIDE 250 ML IV ONE (12:30)
[2019-03-14 16:10] VITALS: TEMP 98.8
[2019-03-14 16:24] VITALS: BP 145/76; PULSE 76
[2019-03-14] MEDS ORDERED: PORTA CATH FLUSH 10 ML IVPUSH ONE (16:24)
== END 2019-03-14 14:25 | disposition home or self-care (01) ==
LOC: JONCCHEMO 05:40 → J7W 11:00 → JONCCHEMO 14:25
PROVIDERS: ATTEND Internal Medicine Hematology & Oncology
DX: Z51.11 Encounter for antineoplastic chemotherapy (principal); C34.91 Malignant neoplasm of unspecified part of right bronchus or lung
CPT/HCPCS: 96375; 96413; 96415

== ENCOUNTER 2019-03-15 10:48 | Day surgery (SDC) | payer OTHER ==
[~2019-03-15 10:48] MED LIST: PEGFILGRASTIM 6 MG/0.6 ML DISP.SYRIN SQ ONE
[2019-03-15 13:35] LABS: BASO % 0.1 % (0-2.0); HEMATOCRIT 33.6 % (32.4-45.2); HEMOGLOBIN 10.9 GM/dL (10.7-15.3); LYMPH % 8.7 % (8-40); MCH 30.7 pg (25.7-33.7); MCHC 32.3 g/dl (32.0-36.0); MEAN PLT VOLUME 10.5 fl (7.5-11.1); MONO % 2.7 % (3.8-10.2); NEUT % 88.5 % (42.8-82.8); PLATELET COUNT 123 K/MM3 (134-434); RBC 3.54 M/mm3 (3.60-5.2); RDW 17.2 % (11.6-15.6); WHITE BLOOD COUNT 10.8 K/mm3 (4.0-10.0)
[2019-03-15 14:01] LABS: ALBUMIN 3.9 g/dl (3.4-5.0); BILIRUBIN,TOTAL 0.1 mg/dL (0.2-1); BLOOD UREA NITROGEN 31.6 mg/dL (7-18); CALCIUM 8.8 mg/dL (8.5-10.1); MAGNESIUM 2.3 mg/dL (1.8-2.4); POTASSIUM 4.9 mmol/L (3.5-5.1)
[2019-03-15 16:23] VITALS: BP 130/77; PULSE 64; TEMP 98
== END 2019-03-15 13:15 | disposition home or self-care (01) ==
LOC: JONCCHEMO 10:48
PROVIDERS: ATTEND Internal Medicine Hematology & Oncology
PROC: 3E013GC Introduction of Other Therapeutic Substance into Subcutaneous Tissue, Percutaneous Approach (ICD-10-PCS; principal; 2019-03-15)
DX: C34.91 Malignant neoplasm of unspecified part of right bronchus or lung (principal); Z76.89 Persons encountering health services in other specified circumstances
CPT/HCPCS: 36415; 80053; 83735; 85025; 96372; J2505

== ENCOUNTER → 2019-04-02 | Day surgery (SDC) | payer OTHER ==
[~2019-04-02] MED LIST changes: +CARBOPLATIN IVPB ONE; +DEXAMETHASONE SODIUM PHOSPHATE 10 MG, ONDANSETRON INJECTION 8 MG in SODIUM CHLORIDE 100 ML IVPB ONE; +ETOPOSIDE IV ONE; -PEGFILGRASTIM 6 MG/0.6 ML DISP.SYRIN SQ ONE; +SODIUM CHLORIDE 250 ML IV ONE; +SODIUM CHLORIDE IV ONE; +SODIUM CHLORIDE IVPB ONE
[2019-04-02 12:27] LABS: BASO % 0.2 % (0-2.0); HEMATOCRIT 33.5 % (32.4-45.2); HEMOGLOBIN 10.6 GM/dL (10.7-15.3); LYMPH % 6.4 % (8-40); MCH 30.5 pg (25.7-33.7); MCHC 31.7 g/dl (32.0-36.0); MEAN CELL VOLUME 96.4 fl (80-96); MEAN PLT VOLUME 9.8 fl (7.5-11.1); MONO % 2.3 % (3.8-10.2); NEUT % 91.1 % (42.8-82.8); PLATELET COUNT 119 K/MM3 (134-434); RBC 3.47 M/mm3 (3.60-5.2); RDW 18.7 % (11.6-15.6); WHITE BLOOD COUNT 18.2 K/mm3 (4.0-10.0)
[2019-04-02 12:58] LABS: BILIRUBIN,TOTAL 0.2 mg/dL (0.2-1); BLOOD UREA NITROGEN 13.8 mg/dL (7-18); CALCIUM 8.9 mg/dL (8.5-10.1); CREATININE 1.2 mg/dL (0.55-1.3); MAGNESIUM 1.9 mg/dL (1.8-2.4); POTASSIUM 3.9 mmol/L (3.5-5.1); TOT PROT 7.1 g/dl (6.4-8.2)
[2019-04-02 15:00] LABS: TEAR DROP CELLS 1+
== END | disposition home or self-care (01) ==
LOC: JONCCHEMO 07:24
PROVIDERS: ATTEND Internal Medicine Hematology & Oncology
DX: Z51.11 Encounter for antineoplastic chemotherapy (principal); C34.91 Malignant neoplasm of unspecified part of right bronchus or lung
CPT/HCPCS: 36415; 80053; 83735; 85025; 96367; 96413; 96415; 96417

== ENCOUNTER 2019-04-03 07:14 | Day surgery (SDC) | payer OTHER ==
[2019-04-03] MEDS ORDERED: DEXAMETHASONE SODIUM PHOSPHATE 10 MG, ONDANSETRON INJECTION 8 MG in SODIUM CHLORIDE 100 ML IVPB ONE (09:30)
[2019-04-03] MEDS ORDERED: SODIUM CHLORIDE IVPB ONE (10:00)
[2019-04-03] MEDS ORDERED: CARBOPLATIN IVPB ONE (10:00)
[2019-04-03] MEDS ORDERED: SODIUM CHLORIDE IV ONE (10:30)
[2019-04-03] MEDS ORDERED: ETOPOSIDE IV ONE (10:30)
[2019-04-03] MEDS ORDERED: SODIUM CHLORIDE 250 ML IV ONE (13:00)
[2019-04-03 16:21] VITALS: TEMP 97.9
[2019-04-03 16:24] VITALS: BP 136/74; PULSE 78
== END 2019-04-03 16:56 | disposition home or self-care (01) ==
LOC: JONCCHEMO 07:14 → J7W 13:15 → JONCCHEMO 16:56
PROVIDERS: ATTEND Internal Medicine Hematology & Oncology
DX: Z51.11 Encounter for antineoplastic chemotherapy (principal); C34.91 Malignant neoplasm of unspecified part of right bronchus or lung
CPT/HCPCS: 82962; 96367; 96375; 96413; 96415; 96417; J2405

== ENCOUNTER 2019-04-04 07:24 | Day surgery (SDC) | payer OTHER ==
[2019-04-04] MEDS ORDERED: DEXAMETHASONE SODIUM PHOSPHATE 10 MG, ONDANSETRON INJECTION 8 MG in SODIUM CHLORIDE 100 ML IVPB ONE (09:30)
[2019-04-04] MEDS ORDERED: ETOPOSIDE IV ONE (10:00)
[2019-04-04] MEDS ORDERED: SODIUM CHLORIDE IV ONE (10:00)
[2019-04-04] MEDS ORDERED: SODIUM CHLORIDE 250 ML IV ONE (12:00)
[2019-04-04 16:26] VITALS: BP 137/82; PULSE 83; TEMP 98.6
[2019-04-04] MEDS ORDERED: PORTA CATH FLUSH 10 ML IVPUSH ONE (16:26)
== END 2019-04-04 15:50 | disposition home or self-care (01) ==
LOC: JONCCHEMO 07:24 → J7W 11:17 → JONCCHEMO 15:50
PROVIDERS: ATTEND Internal Medicine Hematology & Oncology
PROC: 3E04305 Introduction of Other Antineoplastic into Central Vein, Percutaneous Approach (ICD-10-PCS; principal; 2019-04-04)
PROC: 3E043GC Introduction of Other Therapeutic Substance into Central Vein, Percutaneous Approach (ICD-10-PCS; 2019-04-04)
PROC: 3E0437Z Introduction of Electrolytic and Water Balance Substance into Central Vein, Percutaneous Approach (ICD-10-PCS; 2019-04-04)
DX: Z51.11 Encounter for antineoplastic chemotherapy (principal); C34.91 Malignant neoplasm of unspecified part of right bronchus or lung
CPT/HCPCS: 82962; 96367; 96375; 96413; 96415; J2405

== ENCOUNTER 2019-04-05 07:12 | Day surgery (SDC) | payer OTHER ==
[2019-04-05] MEDS ORDERED: DEXAMETHASONE SODIUM PHOSPHATE 10 MG, ONDANSETRON INJECTION 8 MG in SODIUM CHLORIDE 100 ML IVPB ONE (10:00)
[2019-04-05] MEDS ORDERED: SODIUM CHLORIDE IV ONE (10:30)
[2019-04-05] MEDS ORDERED: ETOPOSIDE IV ONE (10:30)
[2019-04-05] MEDS ORDERED: SODIUM CHLORIDE 250 ML IV ONE (12:30)
[2019-04-05 15:29] LABS: BASO % 0.1 % (0-2.0); HEMATOCRIT 27.7 % (32.4-45.2); HEMOGLOBIN 8.8 GM/dL (10.7-15.3); LYMPH % 3.2 % (8-40); MCH 30.7 pg (25.7-33.7); MCHC 31.9 g/dl (32.0-36.0); MEAN CELL VOLUME 96.3 fl (80-96); MEAN PLT VOLUME 9.9 fl (7.5-11.1); MONO % 2.9 % (3.8-10.2); NEUT % 93.8 % (42.8-82.8); PLATELET COUNT 117 K/MM3 (134-434); RBC 2.87 M/mm3 (3.60-5.2); RDW 18.2 % (11.6-15.6); WHITE BLOOD COUNT 20.3 K/mm3 (4.0-10.0)
[2019-04-05 15:51] LABS: ALBUMIN 3.8 g/dl (3.4-5.0); BILIRUBIN,TOTAL 0.2 mg/dL (0.2-1); BLOOD UREA NITROGEN 22.7 mg/dL (7-18); CALCIUM 8.7 mg/dL (8.5-10.1); CREATININE 1.1 mg/dL (0.55-1.3); MAGNESIUM 1.8 mg/dL (1.8-2.4); POTASSIUM 3.7 mmol/L (3.5-5.1); TOT PROT 6.4 g/dl (6.4-8.2)
[2019-04-05 16:16] VITALS: TEMP 97.9
[2019-04-05] MEDS ORDERED: PORTA CATH FLUSH 10 ML IVPUSH ONE (16:17)
[2019-04-05 16:37] VITALS: BP 129/68; PULSE 100
[2019-04-05 16:43] LABS: ANISOCYTOSIS 2+; MACROCYTOSIS 1+; PLATELET ESTIMATE DECREASED
== END 2019-04-05 14:35 | disposition home or self-care (01) ==
LOC: JONCCHEMO 07:12 → J7W 11:54 → JONCCHEMO 14:35
PROVIDERS: ATTEND Internal Medicine Hematology & Oncology
PROC: 3E04305 Introduction of Other Antineoplastic into Central Vein, Percutaneous Approach (ICD-10-PCS; principal; 2019-04-05)
PROC: 3E043GC Introduction of Other Therapeutic Substance into Central Vein, Percutaneous Approach (ICD-10-PCS; 2019-04-05)
PROC: 3E0437Z Introduction of Electrolytic and Water Balance Substance into Central Vein, Percutaneous Approach (ICD-10-PCS; 2019-04-05)
DX: Z51.11 Encounter for antineoplastic chemotherapy (principal); C34.91 Malignant neoplasm of unspecified part of right bronchus or lung; I10 Essential (primary) hypertension
CPT/HCPCS: 36415; 80053; 83735; 85025; 96367; 96375; 96413; 96415; J9181

== ENCOUNTER 2019-04-06 07:04 | Day surgery (SDC) | payer OTHER ==
[2019-04-06] MEDS ORDERED: PEGFILGRASTIM 6 MG/0.6 ML DISP.SYRIN SQ ONE (16:45)
[2019-04-06 17:17] VITALS: BP 104/68; PULSE 82; TEMP 98
== END 2019-04-06 17:20 | disposition home or self-care (01) ==
LOC: JONCCHEMO 07:04 → J7W 16:34 → JONCCHEMO 17:20
PROVIDERS: ATTEND Internal Medicine Hematology & Oncology
PROC: 3E013GC Introduction of Other Therapeutic Substance into Subcutaneous Tissue, Percutaneous Approach (ICD-10-PCS; principal; 2019-04-06)
DX: Z76.89 Persons encountering health services in other specified circumstances (principal); C34.91 Malignant neoplasm of unspecified part of right bronchus or lung
CPT/HCPCS: 96372; J2505

== ENCOUNTER → 2019-04-30 | Day surgery (SDC) | payer OTHER ==
[~2019-04-30] MED LIST changes: +SODIUM CHLORIDE 0.9% IV ONE; -SODIUM CHLORIDE IV ONE
[2019-04-30 11:29] VITALS: BP 123/81; PULSE 84; TEMP 98.6
[2019-04-30 12:17] LABS: BASO % 0.4 % (0-2.0); EOS % 0.2 % (0-4.5); HEMATOCRIT 34.8 % (32.4-45.2); HEMOGLOBIN 11.3 GM/dL (10.7-15.3); LYMPH % 18.1 % (8-40); MCH 31.8 pg (25.7-33.7); MCHC 32.5 g/dl (32.0-36.0); MEAN CELL VOLUME 97.7 fl (80-96); MEAN PLT VOLUME 10.8 fl (7.5-11.1); MONO % 10.1 % (3.8-10.2); NEUT % 71.2 % (42.8-82.8); PLATELET COUNT 125 K/MM3 (134-434); RBC 3.56 M/mm3 (3.60-5.2); RDW 18.5 % (11.6-15.6); WHITE BLOOD COUNT 8.5 K/mm3 (4.0-10.0)
[2019-04-30 12:41] LABS: ALBUMIN 4.2 g/dl (3.4-5.0); BILIRUBIN,TOTAL 0.3 mg/dL (0.2-1); BLOOD UREA NITROGEN 13.3 mg/dL (7-18); CALCIUM 9.2 mg/dL (8.5-10.1); CREATININE 1.2 mg/dL (0.55-1.3); MAGNESIUM 1.8 mg/dL (1.8-2.4); POTASSIUM 3.1 mmol/L (3.5-5.1); TOT PROT 7.7 g/dl (6.4-8.2)
== END | disposition home or self-care (01) ==
LOC: JONCCHEMO 06:26
PROVIDERS: ATTEND Internal Medicine Hematology & Oncology
DX: Z53.8 Procedure and treatment not carried out for other reasons (principal)
CPT/HCPCS: 36415; 80053; 83735; 85025; 96365

== ENCOUNTER 2019-05-01 07:30 | Day surgery (SDC) | payer OTHER ==
[2019-05-01] MEDS ORDERED: DEXAMETHASONE SODIUM PHOSPHATE 10 MG, ONDANSETRON INJECTION 8 MG in SODIUM CHLORIDE 100 ML IVPB ONE (10:00)
[2019-05-01] MEDS ORDERED: SODIUM CHLORIDE IVPB ONE (10:30)
[2019-05-01] MEDS ORDERED: CARBOPLATIN IVPB ONE (10:30)
[2019-05-01] MEDS ORDERED: SODIUM CHLORIDE 0.9% IV ONE (11:00)
[2019-05-01] MEDS ORDERED: ETOPOSIDE IV ONE (11:00)
[2019-05-01] MEDS ORDERED: SODIUM CHLORIDE 250 ML IV ONE (13:00)
[2019-05-01 15:57] VITALS: BP 142/73; PULSE 84; TEMP 98.6
[2019-05-01] MEDS ORDERED: PORTA CATH FLUSH 10 ML IVPUSH ONE (15:57)
[2019-05-02] MEDS ORDERED: DEXAMETHASONE SODIUM PHOSPHATE 10 MG, ONDANSETRON INJECTION 8 MG in SODIUM CHLORIDE 100 ML IVPB ONE (10:00)
[2019-05-02] MEDS ORDERED: ETOPOSIDE IV ONE (10:30)
[2019-05-02] MEDS ORDERED: SODIUM CHLORIDE 0.9% IV ONE (10:30)
[2019-05-02] MEDS ORDERED: SODIUM CHLORIDE 250 ML IV ONE (12:30)
== END 2019-05-01 13:35 | disposition home or self-care (01) ==
LOC: JONCCHEMO 07:30 → J7W 09:45 → JONCCHEMO 13:35
PROVIDERS: ATTEND Internal Medicine Hematology & Oncology
DX: Z51.11 Encounter for antineoplastic chemotherapy (principal); C34.91 Malignant neoplasm of unspecified part of right bronchus or lung
CPT/HCPCS: 96367; 96413; 96415; 96417

== ENCOUNTER 2019-05-02 07:14 | Day surgery (SDC) | payer OTHER ==
[2019-05-02] MEDS ORDERED: SODIUM CHLORIDE 250 ML IV ONE (10:00)
[2019-05-02] MEDS ORDERED: DEXAMETHASONE SODIUM PHOSPHATE 10 MG, ONDANSETRON INJECTION 8 MG in SODIUM CHLORIDE 100 ML IVPB ONE (10:00)
[2019-05-02] MEDS ORDERED: SODIUM CHLORIDE 0.9% IV ONE (10:30)
[2019-05-02] MEDS ORDERED: ETOPOSIDE IV ONE (10:30)
[2019-05-02 16:18] VITALS: TEMP 98.7
[2019-05-02 16:19] VITALS: BP 116/65; PULSE 71
== END 2019-05-02 14:15 | disposition home or self-care (01) ==
LOC: JONCCHEMO 07:14 → J7W 10:16 → JONCCHEMO 14:15
PROVIDERS: ATTEND Internal Medicine Hematology & Oncology
DX: Z51.11 Encounter for antineoplastic chemotherapy (principal); C34.91 Malignant neoplasm of unspecified part of right bronchus or lung
CPT/HCPCS: 96413; 96415; J9181

== ENCOUNTER 2019-05-03 07:30 | Day surgery (SDC) | payer OTHER ==
[2019-05-03] MEDS ORDERED: DEXAMETHASONE SODIUM PHOSPHATE 10 MG, ONDANSETRON INJECTION 8 MG in SODIUM CHLORIDE 100 ML IVPB ONE (10:00)
[2019-05-03] MEDS ORDERED: SODIUM CHLORIDE 0.9% IV ONE (10:30)
[2019-05-03] MEDS ORDERED: ETOPOSIDE IV ONE (10:30)
[2019-05-03] MEDS ORDERED: SODIUM CHLORIDE 250 ML IV ONE (12:30)
[2019-05-03] MEDS ORDERED: PORTA CATH FLUSH 10 ML IVPUSH ONE (15:41)
[2019-05-03 15:46] VITALS: BP 132/69; PULSE 71
[2019-05-03 15:48] VITALS: TEMP 98.7
== END 2019-05-03 14:55 | disposition home or self-care (01) ==
LOC: JONCCHEMO 07:30 → J7W 10:36 → JONCCHEMO 14:55
PROVIDERS: ATTEND Internal Medicine Hematology & Oncology
DX: Z51.11 Encounter for antineoplastic chemotherapy (principal); C34.91 Malignant neoplasm of unspecified part of right bronchus or lung
CPT/HCPCS: 96367; 96413; 96415; J9181

== ENCOUNTER 2019-05-04 06:19 | Day surgery (SDC) | payer OTHER ==
[2019-05-04] MEDS ORDERED: PEGFILGRASTIM (NEULASTA) 6 MG/0.6 ML DISP.SYRIN SQ ONE (15:45)
[2019-05-04 16:06] VITALS: BP 155/85; PULSE 93; TEMP 98
== END 2019-05-04 16:07 | disposition home or self-care (01) ==
LOC: JONCCHEMO 06:19 → J7W 15:18 → JONCCHEMO 16:07
PROVIDERS: ATTEND Internal Medicine Hematology & Oncology
PROC: 3E013GC Introduction of Other Therapeutic Substance into Subcutaneous Tissue, Percutaneous Approach (ICD-10-PCS; principal; 2019-05-04)
DX: C34.91 Malignant neoplasm of unspecified part of right bronchus or lung (principal); Z76.89 Persons encountering health services in other specified circumstances
CPT/HCPCS: 96372; J2505

== ENCOUNTER 2019-05-21 07:00 | Day surgery (SDC) | payer OTHER ==
[2019-05-21] MEDS ORDERED: DEXAMETHASONE SODIUM PHOSPHATE 10 MG, ONDANSETRON INJECTION 8 MG in SODIUM CHLORIDE 100 ML IVPB ONE (09:30)
[2019-05-21] MEDS ORDERED: CARBOPLATIN IVPB ONE (10:00)
[2019-05-21] MEDS ORDERED: SODIUM CHLORIDE IVPB ONE (10:00)
[2019-05-21] MEDS ORDERED: SODIUM CHLORIDE IV ONE (10:30)
[2019-05-21] MEDS ORDERED: ETOPOSIDE IV ONE (10:30)
[2019-05-21 11:23] LABS: BASO % 0.3 % (0-2.0); EOS % 0.4 % (0-4.5); HEMATOCRIT 31.8 % (32.4-45.2); HEMOGLOBIN 10.5 GM/dL (10.7-15.3); LYMPH % 24.4 % (8-40); MCH 31.9 pg (25.7-33.7); MEAN CELL VOLUME 96.6 fl (80-96); MEAN PLT VOLUME 10.3 fl (7.5-11.1); MONO % 10.3 % (3.8-10.2); NEUT % 64.6 % (42.8-82.8); PLATELET COUNT 63 K/MM3 (134-434); RBC 3.29 M/mm3 (3.60-5.2); RDW 17.4 % (11.6-15.6); WHITE BLOOD COUNT 8.6 K/mm3 (4.0-10.0)
[2019-05-21 11:43] LABS: ALBUMIN 4.1 g/dl (3.4-5.0); BILIRUBIN,TOTAL 0.2 mg/dL (0.2-1); BLOOD UREA NITROGEN 7.3 mg/dL (7-18); CALCIUM 9.3 mg/dL (8.5-10.1); CREATININE 1.2 mg/dL (0.55-1.3); MAGNESIUM 1.7 mg/dL (1.8-2.4); POTASSIUM 3.2 mmol/L (3.5-5.1); TOT PROT 7.4 g/dl (6.4-8.2)
[2019-05-21] MEDS ORDERED: POTASSIUM CHLORIDE 20 MEQ PREMIX IVPB 100 ML IVPB ONE (11:44)
[2019-05-21] MEDS ORDERED: MAGNESIUM OXIDE 400 MG TABLET (FP) PO ONE (11:45)
[2019-05-21] MEDS ORDERED: SODIUM CHLORIDE 250 ML IV ONE (12:30)
[2019-05-21] MEDS: KCL 10 MEQ IVPB 10 MEQ/100 ML INFUS.BAG IVPB SCH (13:05)
[2019-05-21] MEDS ORDERED: ALPRAZolam 0.25 MG TABLET PO SCH (14:15)
[2019-05-21 16:59] VITALS: TEMP 98.6
[2019-05-21] MEDS ORDERED: PORTA CATH FLUSH 10 ML IVPUSH ONE (16:59)
[2019-05-21 17:59] VITALS: BP 134/72; PULSE 61
== END 2019-05-21 19:00 | disposition home or self-care (01) ==
LOC: JONCCHEMO 07:00 → J7W 12:11 → JONCCHEMO 19:00
PROVIDERS: ATTEND Internal Medicine Hematology & Oncology
DX: Z51.11 Encounter for antineoplastic chemotherapy (principal); C34.91 Malignant neoplasm of unspecified part of right bronchus or lung
CPT/HCPCS: 36415; 80053; 83735; 85025; 96367; 96413; 96415; 96417; J2405

== ENCOUNTER 2019-05-22 07:06 | Day surgery (SDC) | payer OTHER ==
[2019-05-22] MEDS ORDERED: DEXAMETHASONE SODIUM PHOSPHATE 10 MG, ONDANSETRON INJECTION 8 MG in SODIUM CHLORIDE 100 ML IVPB ONE (09:30)
[2019-05-22] MEDS ORDERED: ETOPOSIDE IV ONE (10:00)
[2019-05-22] MEDS ORDERED: SODIUM CHLORIDE IV ONE (10:00)
[2019-05-22] MEDS ORDERED: SODIUM CHLORIDE 250 ML IV ONE (12:00)
[2019-05-22] MEDS ORDERED: PORTA CATH FLUSH 10 ML IVPUSH ONE (15:56)
[2019-05-22 16:14] VITALS: BP 126/55; PULSE 68; TEMP 98.9
== END 2019-05-22 16:14 | disposition home or self-care (01) ==
LOC: JONCCHEMO 07:06 → J7W 11:50 → JONCCHEMO 16:14
PROVIDERS: ATTEND Internal Medicine Hematology & Oncology
DX: Z51.11 Encounter for antineoplastic chemotherapy (principal); C34.91 Malignant neoplasm of unspecified part of right bronchus or lung
CPT/HCPCS: 96367; 96413; 96415; J2405

== ENCOUNTER 2019-05-23 07:10 | Day surgery (SDC) | payer OTHER ==
[2019-05-23] MEDS ORDERED: DEXAMETHASONE SODIUM PHOSPHATE 10 MG, ONDANSETRON INJECTION 8 MG in SODIUM CHLORIDE 100 ML IVPB ONE (09:30)
[2019-05-23] MEDS ORDERED: SODIUM CHLORIDE IV ONE (10:00)
[2019-05-23] MEDS ORDERED: ETOPOSIDE IV ONE (10:00)
[2019-05-23] MEDS ORDERED: SODIUM CHLORIDE 250 ML IV ONE ×2 (10:15→12:00)
[2019-05-23] MEDS ORDERED: PEGFILGRASTIM (NEULASTA) 6 MG/0.6 ML DISP.SYRIN SQ ONE (13:15)
[2019-05-23 14:32] VITALS: BP 122/67; PULSE 74; TEMP 98.3
== END 2019-05-23 13:35 | disposition home or self-care (01) ==
LOC: JONCCHEMO 07:10 → J7W 13:09 → JONCCHEMO 13:35
PROVIDERS: ATTEND Internal Medicine Hematology & Oncology
PROC: 3E013GC Introduction of Other Therapeutic Substance into Subcutaneous Tissue, Percutaneous Approach (ICD-10-PCS; principal; 2019-05-23)
DX: C34.91 Malignant neoplasm of unspecified part of right bronchus or lung (principal); Z76.89 Persons encountering health services in other specified circumstances
CPT/HCPCS: 96372; J2505

== ENCOUNTER 2019-06-12 06:51 | Day surgery (SDC) | payer OTHER ==
[2019-06-12] MEDS ORDERED: DEXAMETHASONE SODIUM PHOSPHATE 10 MG, ONDANSETRON INJECTION 8 MG in SODIUM CHLORIDE 100 ML IVPB ONE (09:30)
[2019-06-12] MEDS ORDERED: SODIUM CHLORIDE IVPB ONE (10:00)
[2019-06-12] MEDS ORDERED: CARBOPLATIN IVPB ONE (10:00)
[2019-06-12] MEDS ORDERED: SODIUM CHLORIDE IV ONE (10:30)
[2019-06-12] MEDS ORDERED: ETOPOSIDE IV ONE (10:30)
[2019-06-12] MEDS ORDERED: SODIUM CHLORIDE 250 ML IV ONE (12:30)
[2019-06-12 13:15] LABS: BASO % 0.4 % (0-2.0); EOS % 0.3 % (0-4.5); HEMATOCRIT 31.2 % (32.4-45.2); LYMPH % 13.8 % (8-40); MCH 31.8 pg (25.7-33.7); MCHC 32.1 g/dl (32.0-36.0); MEAN CELL VOLUME 98.9 fl (80-96); MEAN PLT VOLUME 9.4 fl (7.5-11.1); MONO % 7.6 % (3.8-10.2); NEUT % 77.9 % (42.8-82.8); PLATELET COUNT 64 K/MM3 (134-434); RBC 3.15 M/mm3 (3.60-5.2); RDW 16.8 % (11.6-15.6); WHITE BLOOD COUNT 19.4 K/mm3 (4.0-10.0)
[2019-06-12 13:59] LABS: ALBUMIN 4.3 g/dl (3.4-5.0); BILIRUBIN,TOTAL 0.2 mg/dL (0.2-1); BLOOD UREA NITROGEN 17.2 mg/dL (7-18); CALCIUM 9.1 mg/dL (8.5-10.1); CREATININE 1.5 mg/dL (0.55-1.3); MAGNESIUM 1.3 mg/dL (1.8-2.4); POTASSIUM 3.6 mmol/L (3.5-5.1); TOT PROT 7.5 g/dl (6.4-8.2)
[2019-06-12] MEDS ORDERED: MAGNESIUM SULF 50% (8.12 MEQ/2 ML-1 GM VIAL) IVPB ONE (14:19)
[2019-06-12] MEDS ORDERED: MAGNESIUM OXIDE 400 MG TABLET (FP) PO ONE (14:20)
[2019-06-12] MEDS ORDERED: SODIUM CHLORIDE 500 ML IV STA (14:21)
[2019-06-12 17:09] VITALS: BP 115/65; PULSE 66; TEMP 97.7
[2019-06-12] MEDS ORDERED: PORTA CATH FLUSH 10 ML IVPUSH ONE (18:17)
== END 2019-06-12 19:04 | disposition home or self-care (01) ==
LOC: JONCCHEMO 06:51 → J7W 13:33 → JONCCHEMO 19:04
PROVIDERS: ATTEND Internal Medicine Hematology & Oncology
PROC: 3E04305 Introduction of Other Antineoplastic into Central Vein, Percutaneous Approach (ICD-10-PCS; principal; 2019-06-12)
PROC: 3E043GC Introduction of Other Therapeutic Substance into Central Vein, Percutaneous Approach (ICD-10-PCS; 2019-06-12)
PROC: 3E0437Z Introduction of Electrolytic and Water Balance Substance into Central Vein, Percutaneous Approach (ICD-10-PCS; 2019-06-12)
DX: Z51.11 Encounter for antineoplastic chemotherapy (principal); C34.91 Malignant neoplasm of unspecified part of right bronchus or lung; E53.8 Deficiency of other specified B group vitamins; I10 Essential (primary) hypertension; E78.00 Pure hypercholesterolemia, unspecified
CPT/HCPCS: 36415; 80053; 83735; 85025; 96361; 96367; 96413; 96415; 96417; J2405

== ENCOUNTER 2020-01-13 14:26 | Inpatient (IN) | payer OTHER ==
[2020-01-13] MEDS ORDERED: ONDANSETRON 4 MG/2 ML VIAL IVPUSH ONE (15:23)
[2020-01-13] MEDS ORDERED: FAMOTIDINE 20 MG/50 ML IVPB 20 MG/50 ML MG IVPB ONE ×2 (15:24→15:47)
[2020-01-13] MEDS ORDERED: ACETAMINOPHEN 1000 MG/100 ML VIAL (NON FORMULARY) IVPB ONE (15:25)
--- NOTE | 2020-01-13 15:40 | PDOC ---
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 Pt explains she was on chemo for and many GI medications, but halted all treatment 6 months ago because she felt depressed and did not want to leave her house. Pt presented to the ED today because the pain was worsening. She explains pain comes and goes but today the pain is a sharp 10/10 pain that is better with sleep and previous medications (which she has not taken in 6 months). Pt does have associated sxs of weight loss, night sweats, chills, chronic bloody emesis (for past 6 mos), urinary frequency with the last bowel movement yesterday. Pt denies fever, chest pain, SOB, no bloody or black stools, cough, limb weakness, or LOC. Today pt is explaining she would like to have a full workup and speak to Dr. Rich Fraga on restarting chemo. PMH: HTN HLD DM Squamous Cell Carcinoma of lungs Meds: Denies use of any drugs for past 6 months PSH: right catheter placement, brain surgery (?) Allergies: Sulfur drugs Social: denies current drug use but explains has extensive drug abuse history of multiple drugs including IV drugs Current tobacco use smokes 1 pack of day since she was 30 Denies alcohol use PCP: Dr. Young Onco: Dr. Fraga 01/13/20 18:52 Past History - Medical History Allergies/Adverse Reactions: Allergies Allergy/AdvReac Type Severity Reaction Status Date / Time Sulfa (Sulfonamide Allergy Unknown Verified 03/09/17 12:06 Antibiotics) Home Medications: Ambulatory Orders Buspirone HCl [Buspar -] 5 mg PO BID 10/05/16 Esomeprazole Magnesium 40 mg PO DAILY 10/05/16 Ezetimibe [Zetia -] 10 mg PO DAILY 10/05/16 Pregabalin [Lyrica -] 100 mg PO TID 10/05/16 Sertraline HCl [Zoloft -] 100 mg PO DAILY #30 tablet 10/06/16 Zolpidem Tartrate [Ambien] 10 mg PO HS PRN #14 tablet MDD 10 10/06/16 Losartan Potassium 100 mg PO DAILY 03/07/17 Umeclidinium Brm/Vilanterol Tr [Anoro Ellipta 62.5-25 Mcg INH] 1 each IH DAILY 03/07/17 Anemia: No Asthma: Yes Cancer: No Cardiac Disorders: No CVA: No COPD: No CHF: No Dementia: No Diabetes: Yes GI Disorders: Yes Disorders: No HTN: Yes Hypercholesterolemia: Yes Kidney Stones: No Liver Disease: No Seizures: No Thyroid Disease: No - Surgical History Abdominal Surgery: No Appendectomy: No Cardiac Surgery: No Cholecystectomy: No Lung Surgery: No Neurologic Surgery: No Orthopedic Surgery: No - Psycho-Social/Smoking History Smoking History: Current some day smoker Have you smoked in the past 12 months: Yes Number of Cigarettes Smoked Daily: 10 Cigars Per Day: 0 Information on smoking cessation initiated: Yes 'Breaking Loose' booklet given: 10/05/16 - Substance Abuse Hx (Audit-C & DAST Scrn) How often the patient has a drink containing alcohol: Never Score: In Men: 4 or > Positive; In Women: 3 or > Positive: 0 Screen Result (Pos requires Nsg. Audit-10AR): Negative Review of Systems - Review of Systems Comments:: 01/13/20 15:40 GENERAL/CONSTITUTIONAL:Chills and Weakness HEAD, EYES, EARS, NOSE AND THROAT: No change in vision. No ear pain or discharge. No sore throat. CARDIOVASCULAR: No chest pain or shortness of breath RESPIRATORY: No cough, wheezing, or hemoptysis. GASTROINTESTINAL: Chronic nausea, emesis, and hematemesis GENITOURINARY: urinary frequency. No dysuria MUSCULOSKELETAL: No joint or muscle swelling or pain. No neck or back pain. SKIN: No rash NEUROLOGIC: Dizziness. No headache, loss of consciousness, or change in strength/sensation. ENDOCRINE: Dec appetite. Pt states lost weight about 100 lbs. ALLERGIC/IMMUNOLOGIC: No hives or skin allergy. *Physical Exam - Vital Signs Last Vital Signs Temp Pulse Resp BP Pulse Ox 98.3 F 74 20 132/87 100 01/13/20 14:45 01/13/20 14:45 01/13/20 14:45 01/13/20 14:45 01/13/20 14:45 - Physical Exam 01/13/20 16:02 GENERAL: Awake, alert, and fully oriented, in moderate distress HEAD: No signs of trauma, normocephalic, atraumatic EYES: PERRLA, EOMI, sclera anicteric, conjunctiva clear ENT: Auricles normal inspection, hearing grossly normal, nares patent, oropharynx clear without exudates. Moist mucosa NECK: Normal ROM, supple, no lymphadenopathy, JVD, or masses LUNGS: No distress, speaks full sentences, clear to auscultation bilaterally HEART: Regular rate and rhythm, normal S1 and S2, no murmurs, rubs or gallops, peripheral pulses normal and equal bilaterally. ABDOMEN:Normal bowel sounds in all four quadrants. Tenderness to palpation in RLQ, LLQ, and LUQ EXTREMITIES : Normal inspection, Normal range of motion, no edema. No clubbing or cyanosis. NEUROLOGICAL: Cranial nerves II through XII grossly intact. Normal speech, no focal sensorimotor deficits MSK: No vertebral step off. Tenderness to palpation on Thoracic vertebrae. SKIN: Warm, Dry, normal turgor, no rashes or lesions not Heart Score/ECG Review - ECG Impressions Comment:: 01/13/20 16:26 Regular rhythm Normal sinus rhythm at 64bpm Normal NE interval Normal QRS interval Normal QT interval No ST changes ED Treatment Course - LABORATORY CBC & Chemistry Diagram: 01/14/20 06:45 01/14/20 06:45 - RADIOLOGY Radiology Studies Ordered: Category Date Time Status CHEST X-RAY PORTABLE* [RAD] Stat Radiology 01/13/20 15:20 Ordered Medical Decision Making - Medical Decision Making 01/13/20 16:06 DDx: - Metastatic Cancer - R/O ACS - PUD - UTI - Colon cancer 64 yo female with pmh of htn, HLD, DM metastatic SCC of the lung (last chemo 6 mos) presents to the ED with stomach pain for the past 6 months. Pt will get work up for metastatic cancer, ACS, and most likely admit. Pt will get admission labs: - CBC -CMP -UA -COVID -EKG Metastatic cancer: - CT scan of head w/o contrast -CT scan of thoracic w/o contrast - CT scan of abdomen with contrast -CBC,CMP ACS workup: - Cardiac profile -EKG For pain and nausea will give 20mg pepcid and 1000mg acetaminophen. 01/13/20 17:54 Pt did have elevated K but was hemolyzed. Pt EKG showed no signs of hyperkalemia. 01/13/20 18:52 Pt will be admitted because abdominal pain with history of metastatic cancer who wants to pursue full management with possible restart of chemo. Put consult order for Dr. Fraga, but did not call. Pt admitted order has been put in but microblog not sent. 01/14/20 08:29 Pt at 7 pm was signed out to night team. Discharge - Discharge Information Problems reviewed: Yes Clinical Impression/Diagnosis: Dizziness, Pneumonia, Metastatic cancer Squamous cell carcinoma of lung Qualifiers: Laterality: unspecified laterality Qualified Code(s): C34.90 - Malignant neoplasm of unspecified part of unspecified bronchus or lung Abdominal pain Qualifiers: Abdominal location: periumbilical Qualified Code(s): R10.33 - Periumbilical pain Condition: Guarded - Admission Yes - Follow up/Referral - Patient Discharge Instructions - Post Discharge Activity
[2020-01-13] MEDS ORDERED: ACETAMINOPHEN INJECTION 100 ML IVPB ONE (15:47)
--- NOTE | 2020-01-13 16:00 | PDOC ---
Documentation entered by Mary Beth Pizarro SCRIBE, acting as scribe for Yokasta Joyner MD. Yokasta Joyner MD: This documentation has been prepared by the mimaibeJuarez Ana, SCRIBE, under my direction and personally reviewed by me in its entirety. I confirm that the documentation accurately reflects all work, treatment, procedures, and medical decision making performed by me. Attending Attestation - Resident Resident Name: Sandeep Ramirez - ED Attending Attestation I have performed the following: I have examined & evaluated the patient, The case was reviewed & discussed with the resident, I agree w/resident's findings & plan, Exceptions are as noted - HPI HPI: 01/13/20 14:44 Patient is a 64 year old female with h/o Squamous Cell Carcinoma of lungs mets to brain (last Chemo 06/2019), opiate & nicotine dependence, lumbar arthritis, DM, GERD, HTN, HLD, anxiety, depression, who presents to the ED with worsening abdominal pain x6 months. Patient stated the pain is not constant but that today her pain level is a 10/10. Patient disclosed she has had a decrease in appetite and lost "about 100 pounds in the last 6 months" and has also not been complying with chemo because she "doesn't want to leave her house". Patient denies: LOC, fever, chills, SOB, cough, chest pain. Allergies: sulfonamide antibiotics. - Physicial Exam PE: 01/13/20 15:47 GENERAL: nontoxic-appearing, A/Ox4, no distress, answers questions appropriately, pleasant, Czech and Marshallese-Speaking HEENT: PERRLA, EOMI, moist mucous membranes NECK/BACK: no midline ttp, no spinal stepoff or deformity, no hematoma, full ROM, neck supple CARDIOVASCULAR: regular rate/rhythm, no MGR, strong peripheral pulses, capillary refill <2 seconds, extremities wwp, no edema LUNGS/RESPIRATORY: no respiratory distress, CTAB GI/ABDOMEN: symmetric [id number], normoactive BS, soft, mild periumbilical and LUQ ttp, no midline pulsatile masses : no CVA tenderness MSK/EXTREMITIES: no muscle atrophy, no acute deformity SKIN: warm and dry, no pallor, no jaundice, no rash, no pathologic-appearing bruising, no skin breakdown, no cuts, no lesions NEUROLOGICAL: GCS 15, CN II-XII grossly intact, 5/5 strength proximally and d istally, no facial droop - Medical Decision Making 01/13/20 15:50 64YOF with h/o squamous cell carcinoma of lung with mets, who p/w diffuse abdominal pain worse in periumbilical region, and dizziness. Initial Vital Signs Temp Pulse Resp BP Pulse Ox 98.3 F 74 20 132/87 100 01/13/20 14:45 01/13/20 14:45 01/13/20 14:45 01/13/20 14:45 01/13/20 14:45 DDX IBNLT: Most likely progression of CA mets, possible intraperitoneal mets with possible SBO, also could be colitis, diverticulitis, appendicitis, pancreatitis, biliary colic, ACS, AAA although no midline pulsatile masses), spine mets, etc. Dizziness is stated chronic but could be progression of old brain met or could be new brain met. Could also be thombotic CVA especially given likely hypercoagulable state with CA. W/U ordere: Labs as noted below, EKG, CT C/A/P with IV contrast Pending labs and imaging workup. To be admitted for further workup, treatment, and observation. Heart Score/ECG Review #1 01/13/20 16:18 Sinus rhythm, rate 64, normal axis and intervals, no ischemic ST-T changes Discharge - Discharge Information Problems reviewed: Yes Clinical Impression/Diagnosis: Dizziness Squamous cell carcinoma of lung Qualifiers: Laterality: unspecified laterality Qualified Code(s): C34.90 - Malignant neoplasm of unspecified part of unspecified bronchus or lung Abdominal pain Qualifiers: Abdominal location: periumbilical Qualified Code(s): R10.33 - Periumbilical pain Pneumonia Qualifiers: Pneumonia type: due to unspecified organism Laterality: unspecified laterality Lung location: unspecified part of lung Qualified Code(s): J18.9 - Pneumonia, unspecified organism Metastatic cancer Qualifiers: Area of secondary neoplastic involvement: other site Qualified Code(s): C79.89 - Secondary malignant neoplasm of other specified sites Condition: Guarded - Admission Yes - Follow up/Referral - Patient Discharge Instructions - Post Discharge Activity
[2020-01-13 16:16] LABS: BASO % 0.5 % (0-2.0); EOS % 0.3 % (0-4.5); HEMATOCRIT 31.6 % (32.4-45.2); LYMPH % 21.9 % (8-40); MCHC 31.8 g/dl (32.0-36.0); MEAN PLT VOLUME 9.6 fl (7.5-11.1); MONO % 8.1 % (3.8-10.2); NEUT % 69.2 % (42.8-82.8); PLATELET COUNT 169 K/MM3 (134-434); RBC 3.71 M/mm3 (3.60-5.2); RDW 17.4 % (11.6-15.6); WHITE BLOOD COUNT 8.2 K/mm3 (4.0-10.0)
[2020-01-13 17:17] LABS: ALBUMIN 3.6 g/dl (3.4-5.0); ALK PHOS 99 U/L (45-117); BILIRUBIN,TOTAL 0.7 mg/dL (0.2-1); CALCIUM 9.4 mg/dL (8.5-10.1); CHLORIDE 106 mmol/L (98-107); CO2 25 mmol/L (21-32); CREATININE 1.2 mg/dL (0.55-1.3); GLUCOSE,RANDOM 87 mg/dL (74-106); LIPASE 86 U/L (73-393); SGOT/AST 49 U/L (15-37); SGPT/ALT 15 U/L (13-61); SODIUM 137 mmol/L (136-145); TOT PROT 8.7 g/dl (6.4-8.2)
[2020-01-13 17:18] LABS: ANION GAP 6 MMOL/L (8-16)
[2020-01-13 17:19] LABS: POTASSIUM 6.7 mmol/L (3.5-5.1)
[2020-01-13 19:15] LABS: EPI CELLS >36 /uL (0-25.1); HYALINE CASTS 0 /uL (0-3.1); PH,URINE 6.5 (5.0-8.0); URINE APPEARANCE CLOUDY; URINE BACTERIA 1497 /uL (0-1359); URINE BILIRUBIN NEGATIVE (NEGATIVE); URINE COLOR YELLOW; URINE GLUCOSE (UA) NEGATIVE (NEGATIVE); URINE KETONE NEGATIVE (NEGATIVE); URINE LEUK ESTERASE 2+ (NEGATIVE); URINE NITRITE NEGATIVE (NEGATIVE); URINE PROTEIN NEGATIVE (NEGATIVE); URINE RBC 12 /uL (0-23.9); URINE UROBILINOGEN 0.2 mg/dL (0.2-1.0); URINE WBC 97 /uL (0-25.8)
--- NOTE | 2020-01-13 19:39 | PDOC ---
*Physical Exam - Vital Signs Last Vital Signs Temp Pulse Resp BP Pulse Ox 98.3 F 74 20 132/87 100 01/13/20 14:45 01/13/20 14:45 01/13/20 14:45 01/13/20 14:45 01/13/20 14:45 ED Treatment Course - LABORATORY CBC & Chemistry Diagram: 01/13/20 15:30 01/13/20 18:40 - ADDITIONAL ORDERS Additional order review: Laboratory Results 01/13/20 01/13/20 01/13/20 18:45 18:40 15:30 Sodium 137 Potassium 4.4 6.7 H* Chloride 106 Carbon Dioxide 25 Anion Gap 6 L BUN 13.0 Creatinine 1.2 Est GFR (CKD-EPI)AfAm 55.31 Est GFR (CKD-EPI)NonAf 47.72 Random Glucose 87 Calcium 9.4 Total Bilirubin 0.7 AST 49 H ALT 15 Alkaline Phosphatase 99 Creatine Kinase 128 Troponin I < 0.02 Total Protein 8.7 H Albumin 3.6 Lipase 86 Urine Color Yellow Urine Appearance Cloudy Urine pH 6.5 D Ur Specific Denio 1.022 Urine Protein Negative Urine Glucose (UA) Negative Urine Ketones Negative Urine Blood Negative Urine Nitrite Negative Urine Bilirubin Negative Urine Urobilinogen 0.2 Ur Leukocyte Esterase 2+ H Urine WBC (Auto) 97 Urine RBC (Auto) 12 Urine Casts (Auto) 0 U Epithel Cells (Auto) >36 Urine Bacteria (Auto) 1497 01/13/20 15:30 RBC 3.71 MCV 85.0 MCHC 31.8 L RDW 17.4 H MPV 9.6 Neutrophils % 69.2 Lymphocytes % 21.9 D Monocytes % 8.1 Eosinophils % 0.3 Basophils % 0.5 - Medications Given in the ED: ED Medications Discontinued Medications Generic Name Dose Route Start Last Admin Trade Name Freq PRN Reason Stop Dose Admin Acetaminophen 1,000 mg 01/13/20 15:25 01/13/20 16:03 Ofirmev Injection - IVPB 01/13/20 15:26 1,000 mg ONCE ONE Administration Famotidine/Sodium Chloride 20 mg in 50 mls @ 100 mls/hr 01/13/20 15:24 01/13/20 16:03 Pepcid 20 Mg Premixed Ivpb - IVPB 01/13/20 15:53 100 mls/hr ONCE ONE Administration Ondansetron HCl 4 mg 01/13/20 15:23 01/13/20 16:15 Zofran Injection IVPUSH 01/13/20 15:24 4 mg ONCE ONE Administration Medical Decision Making - Medical Decision Making 01/13/20 19:34 Sign-out received from Dr. Ramirez In short, patient is here for epigastric and RUQ abdominal pain Found to have elevated LFTs, Bilis Also with UA with 2+ leuks, cloudy, 1400 bacteria, 37 epithelial cells F/u RUQ US, CTAP read (looks like wall dilation and sludge on my review) Initial chemistry hemolyzed, repeat K 4.4, no chest pain and no EKG changes Anticipated Dispo: Admit Med/Surg 01/13/20 20:01 - Mass from lung to cardiac atria and gastirc mass likely c/w cancer progression - Post obstructive pneumonia on CT - Vanc/Zosyn ordered - Patient without medication at home, non-compliant with everything for 7 months Dispo: Admit Med / Surg 01/13/20 21:45 Patient with what appears to be single hive distal to IV infusing vancomycin (50 administered) AFHDS, endorses mild pruritus earlier, none at present, normal RR and Sat Ordered for 25mg Benadryl Discharge - Discharge Information Problems reviewed: Yes Clinical Impression/Diagnosis: Dizziness Squamous cell carcinoma of lung Qualifiers: Laterality: unspecified laterality Qualified Code(s): C34.90 - Malignant neoplasm of unspecified part of unspecified bronchus or lung Abdominal pain Qualifiers: Abdominal location: periumbilical Qualified Code(s): R10.33 - Periumbilical pain Pneumonia Qualifiers: Pneumonia type: due to unspecified organism Laterality: unspecified laterality Lung location: unspecified part of lung Qualified Code(s): J18.9 - Pneumonia, unspecified organism Metastatic cancer Qualifiers: Area of secondary neoplastic involvement: other site Qualified Code(s): C79.89 - Secondary malignant neoplasm of other specified sites Condition: Guarded - Admission Yes - Follow up/Referral - Patient Discharge Instructions - Post Discharge Activity
[2020-01-13] MEDS ORDERED: PIPERACILLIN/TAZOB 3.375 GM 3.375 GM in DEXTROSE 5%-WATER - 50 ML IVPB ONE (20:03)
[2020-01-13] MEDS ORDERED: VANCOMYCIN 1 GM in D5W (PRE-DOCKED) 1,000 MG/250 ML IVPB ONE (20:03)
[2020-01-13] MEDS ORDERED: VANCOMYCIN 1 GRAM (PRE-DOCKED) 1,000 MG/250 ML BAG IVPB ONE (20:15)
[2020-01-13] MEDS ORDERED: PIPERACILLIN/TAZOB 3.375 GM 3.375 GM/50 ML BAG IVPB ONE (20:15)
--- NOTE | 2020-01-13 20:23 | PN ---
Teaching Attending Note Name of Resident: Donal Booker ATTENDING PHYSICIAN STATEMENT I saw and evaluated the patient. I reviewed the resident's note and discussed the case with the resident. I agree with the resident's findings and plan as documented. SUBJECTIVE: Patient is 64 year old woman with a PMH of Tobacco use, NIDDM, HTN, HLD, Anxiet y, Remote heroin and cocaine abuse, Lumbar arthritis, GERD, Opiate dependence, Depression and Squamous cell carcinoma of lung (RUL) with metastasis to brain (last chemotherapy in 06/2019) presents to ER for periumbilical pain for past 6 months. Halted all treatment 6 months ago because she felt depressed and did not want to leave her house. Reports that pain comes and goes but today the pain is a sharp 10/10 pain that is better with sleep. Has associated weight loss, night sweats, chills, chronic bloody emesis, urinary frequency with the last bowel movement yesterday. Patient denies fever, chest pain, SOB, no bloody or black stools, cough, limb weakness or LOC. Says she would like to have a full workup and speak to Dr. Rich Fraga on restarting chemotherapy. Denies alcohol or illicit drug use. No sick contacts or recent travels. Patient has a family history of DM in grand parent; kidney disease in father and Alzheimer's dementia in mother. OBJECTIVE: Alert Vital Signs Period Temp Pulse Resp BP Sys/Ferrer Pulse Ox Last 24 Hr 98.3 F-98.3 F 67-74 20-20 116-132/75-87 98-100 HEENT: No Jaundice, eye redness or discharge, PERRLA, EOMI. Normocephalic, atraumatic. External ears are normal and hearing is grossly intact. No nasal discharge. Neck: Supple, nontender. No palpable adenopathy or thyromegaly. No JVD Chest: Good effort. Diminished breath sounds. Clear to percussion. Heart: Regular. No S3, rub or murmur Abdomen: Not distended, soft, periumblcal and lower abdominal tenderness;no HSM. No rebound or guarding. Normal bowel sounds. Ext: Peripheral pulses intact. No leg edema. Skin: Warm and dry. No petechiae, rash or ecchymosis. Neuro: Alert. Oriented x3. CN 2-12 grossly intact. Sensation grossly intact in all four extremities and DTR are symmetric. Psych: Appropriate mood and affect. Good insight. Home Medications Medication Instructions Recorded Baclofen [Lioresal -] 10 mg PO DAILY 10/05/16 Buspirone HCl [Buspar -] 5 mg PO BID 10/05/16 Diphenhydramine [Benadryl -] 50 mg PO HS 10/05/16 Esomeprazole Magnesium 40 mg PO DAILY 10/05/16 Ezetimibe [Zetia -] 10 mg PO DAILY 10/05/16 Pregabalin [Lyrica -] 100 mg PO TID 10/05/16 Sertraline HCl [Zoloft -] 100 mg PO DAILY #30 tablet 10/06/16 Zolpidem Tartrate [Ambien] 10 mg PO HS PRN #14 tablet MDD 10 10/06/16 Losartan Potassium 100 mg PO DAILY 03/07/17 Umeclidinium Brm/Vilanterol Tr 1 each IH DAILY 03/07/17 [Anoro Ellipta 62.5-25 Mcg INH] Abnormal Lab Results 01/13/20 01/13/20 01/13/20 15:30 15:30 18:45 Hgb 10.0 L Hct 31.6 L MCHC 31.8 L RDW 17.4 H Potassium 6.7 H* Anion Gap 6 L AST 49 H Total Protein 8.7 H Ur Leukocyte Esterase 2+ H Current Medications Generic Name Dose Route Start Last Admin Trade Name Freq PRN Reason Stop Dose Admin Ezetimibe 10 mg 01/14/20 10:00 Zetia - PO DAILY [facility] Enoxaparin Sodium 40 mg 01/14/20 10:00 Lovenox - SQ DAILY [facility] Ceftriaxone Sodium 1 gm/ 50 mls @ 100 mls/hr 01/14/20 10:00 Dextrose IVPB DAILY [facility] Protocol Insulin Aspart 1 vial 01/14/20 07:00 Novolog Vial Sliding Scale - SQ ACHS [facility] Protocol Ketorolac Tromethamine 15 mg 01/13/20 22:37 Toradol Injection - IVPUSH 01/18/20 22:36 Q6H PRN PAIN LEVEL 6-10 Lidocaine 1 patch 01/14/20 00:00 Lidoderm Patch - TP 01/14/20 00:01 ONCE ONE Miscellaneous 1 each 01/14/20 10:00 Lidoderm Patch Removal MC 01/14/20 12:00 DAILY@1000 [facility] Miscellaneous 1 each 01/14/20 12:00 01/13/20 23:43 Lidoderm Patch Removal MC 01/14/20 12:01 1 each ONCE@1200 ONE Administration Nicotine 14 mg 01/14/20 10:00 Nicoderm Patch - TD DAILY [facility] Pantoprazole Sodium 40 mg 01/14/20 07:00 Protonix - PO ACBK FABIANA Pregabalin 100 mg 01/14/20 06:00 Lyrica - PO TID [facility] Umeclidinium/Vilanterol puff 01/14/20 10:00 Anoro Ellipta 62.5-25 Mcg Inh IH DAILY [facility] ASSESSMENT AND PLAN: 1. Metastatic lung cancer/UTI - No acute intracranial abnormality noted on head CT. Chest CT shows large RUL mass with tumor invasion into the right ventricle; postobstructive changes described as "pneumonia" by radiologist. CT abdomen/pelvis shows masslike area in the gastric body, biliary ductal dilatation and cholelithiasis with no acute gallbladder disease. ER staff prescribed Tylenol, IV Vancomycin, Zosyn, Pepcid and IV Zofran for the patient. Will treat UTI with IV Ceftriaxone, give IV Protonix, IV NS and use IV Ketorolac for pain control. Await Pulmonary, ID and Oncology input before further antibiotics for ?"postobstrcutive pneumonia". Consult GI. EKG shows NSR at 64/minute and QTc [address]-T wave changes. Initial troponin is negative. Viral testing for COVID-19 ordered and patient placed on airborne, droplet and contact isolation. Started on supplemental oxygen via nasal cannula. Consult systems support specialist for opiate dependence. Will continue comprehensive care for all of patients comorbid conditions. 2. DM For now, we will hold the home diabetes drugs and implement sliding scale insulin regimen. Provide comprehensive diabetes care with patient teaching and counseling about the importance of adherence to prescribed diabetes regimen, euglycemia, eye care and foot care. 3. Tobacco Use Counseled on risks associated with tobacco use. We will provide patient all the necessary assistance to facilitate smoking cessation and prescribe Nicotine patch. 4. Anemia - Likely partly due to malignancy. Will do basic anemia work up including serial stool guaiacs, reticulocyte count and iron studies. 5. Hypertension Will restart suitable outpatient antihypertensive drugs when clinically appropriate. Subsequently, will revise regimen to ensure [id number] excellent BP control. Patient counseled on the injurious effects of uncontrolled hypertension. Nonpharmacologic measures to control hypertension like weight loss, salt restriction and exercise stressed. Importance of adherence to treatment regimen and attainment of normotension emphasized. 6. DVT prophylaxis - Lovenox 40 mg SQ q 24 hours. 7. Advance directives - Full code
[2020-01-13] MEDS ORDERED: LIDOCAINE 5% TOPICAL PATCH TP ONE (22:00)
[2020-01-13] MEDS ORDERED: KETOROLAC TROMETHAMINE 15 MG/ML VIAL IVPUSH PRN (22:37)
--- NOTE | 2020-01-13 23:23 | HP ---
CHIEF COMPLAINT: I have abdominal pain PCP: Dr. 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 She describes her pain as non radiating, periumbilical, episodic, squeezing, 5/10 at rest (10/10 at worse), not related to food intake, and relieved mildly with ED meds. She also reports over the past 6 months, she had fever, chills, night sweats, anorexia, weight loss about 70-80lbs, cough associated with chest pain and SOB, and dysuria. Patient report her last heroine use was about a year ago(IV) and currently smokes about 1 pack per day since 24 years of age. She reports that her last chemo was on 07/16/19, she does not remember how many rounds she completed, but stopped going to chemo and stopped taking her medications for past 6 months because she felt depressed and did not want to leave her house. 03/11/17: Surgical pathology report: Right Lobe bronchial washing: High grade neuroendocrine carcinoma, most consistent with small cell carcinoma. ER course: Patient received Acetaminophen 1000mg, Ondastron 4mg, pepcid 20mg, N/S 1000mls, Vanco 1g + zosyn 3.375. Patient report mild improvement of her pain with ED medications. ER course was notable for: (1) H/H 1031.6 (2) K+ 6.6, repeat 4.4 (3) UA: Leuk est +2 Recent Travel: denies PAST MEDICAL HISTORY: As above in HPI PAST SURGICAL HISTORY: lung tumor resection 2017, [facility] Parietal Craniotomy 2019 Social History: Smokin pack years Alcohol: 20-30 years, 2-3x beers/day, 2-3x per week Drugs: Cocaine, heroine(IV) Allergies Sulfa (Sulfonamide Antibiotics) Allergy (Unknown, Verified 03/09/17 12:06) HOME MEDICATIONS: Home Medications Medication Instructions Recorded Buspirone HCl [Buspar -] 5 mg PO BID 10/05/16 Esomeprazole Magnesium 40 mg PO DAILY 10/05/16 Ezetimibe [Zetia -] 10 mg PO DAILY 10/05/16 Pregabalin [Lyrica -] 100 mg PO TID 10/05/16 Sertraline HCl [Zoloft -] 100 mg PO DAILY #30 tablet 10/06/16 Zolpidem Tartrate [Ambien] 10 mg PO HS PRN #14 tablet MDD 10 10/06/16 Losartan Potassium 100 mg PO DAILY 03/07/17 Umeclidinium Brm/Vilanterol Tr 1 each IH DAILY 03/07/17 [Anoro Ellipta 62.5-25 Mcg INH] REVIEW OF SYSTEMS CONSTITUTIONAL: Present: fever, chills, diaphoresis, generalized weakness, malaise, loss of appetite, weight change HEENT: Absent: rhinorrhea, nasal congestion, throat pain, difficulty swallowing CARDIOVASCULAR: Absent: chest pain, syncope, palpitations, irregular heart rate, lightheadedness, peripheral edema RESPIRATORY: Present: cough with shortness of breath and chest pain Absent: dyspnea with exertion, orthopnea, wheezing, stridor, hemoptysis GASTROINTESTINAL: Present: abdominal pain Absent: abdominal distension, nausea, vomiting, diarrhea, constipation, melena, hematochezia GENITOURINARY: Present: dysuria Absent: frequency, urgency, hesitancy, hematuria, flank pain, genital pain MUSCULOSKELETAL: Absent: myalgia, arthralgia, joint swelling, back pain, neck pain SKIN: Absent: rash, itching, pallor NEUROLOGIC: Absent: headache, focal weakness or paresthesias, dizziness, bladder or bowel incontinence PHYSICAL EXAMINATION Vital Signs - 24 hr 01/13/20 01/13/20 14:45 19:40 Temperature 98.3 F 98.3 F Pulse Rate 74 Pulse Rate [ 67 Radial] Respiratory 20 20 Rate Blood Pressure 132/87 Blood Pressure 116/75 [Left Arm] O2 Sat by Pulse 100 98 Oximetry (%) GENERAL: Awake, alert, and fully oriented, in no acute distress. HEAD: Normal with no signs of trauma. EYES: Pupils equal, round and reactive to light, extraocular movements intact, sclera anicteric, conjunctiva clear. EARS, NOSE, THROAT: Ears normal, nares patent, oropharynx clear without exudates. Moist mucous membranes. NECK: Normal range of motion, supple without lymphadenopathy, JVD, or masses. LUNGS: Breath sounds equal, clear to auscultation bilaterally. No wheezes, and no crackles. No accessory muscle use. HEART: Regular rate and rhythm, normal S1 and S2 without murmur, rub or gallop. ABDOMEN: Soft, Periumbilical ttp, not distended, normoactive bowel sounds, no guarding, no rebound, no masses. MUSCULOSKELETAL: Normal range of motion at all joints. No bony deformities or tenderness. No CVA tenderness. UPPER EXTREMITIES: 2+ pulses, warm, well-perfused. No cyanosis. No clubbing. No peripheral edema. LOWER EXTREMITIES: 2+ pulses, warm, well-perfused. No calf tenderness. No peripheral edema. NEUROLOGICAL: Cranial nerves II-XII intact. Normal speech. Normal gait. PSYCHIATRIC: Cooperative. Good eye contact. Appropriate mood and affect. SKIN: Warm, dry, normal turgor, no rashes or lesions noted, normal capillary refill. Laboratory Results - last 24 hr 01/13/20 01/13/20 01/13/20 15:30 15:30 18:40 WBC 8.2 RBC 3.71 Hgb 10.0 L Hct 31.6 L MCV 85.0 MCH 27.0 D MCHC 31.8 L RDW 17.4 H Plt Count 169 D MPV 9.6 Absolute Neuts (auto) 5.7 Neutrophils % 69.2 Lymphocytes % 21.9 D Monocytes % 8.1 Eosinophils % 0.3 Basophils % 0.5 Nucleated RBC % 0 Sodium 137 Potassium 6.7 H* 4.4 Chloride 106 Carbon Dioxide 25 Anion Gap 6 L BUN 13.0 Creatinine 1.2 Est GFR (CKD-EPI)AfAm 55.31 Est GFR (CKD-EPI)NonAf 47.72 Random Glucose 87 Calcium 9.4 Total Bilirubin 0.7 AST 49 H ALT 15 Alkaline Phosphatase 99 Creatine Kinase 128 Troponin I < 0.02 Total Protein 8.7 H Albumin 3.6 Lipase 86 Urine Color Urine Appearance Urine pH Ur Specific [place] Urine Protein Urine Glucose (UA) Urine Ketones Urine Blood Urine Nitrite Urine Bilirubin Urine Urobilinogen Ur Leukocyte Esterase Urine WBC (Auto) Urine RBC (Auto) Urine Casts (Auto) U Epithel Cells (Auto) Urine Bacteria (Auto) 01/13/20 18:45 WBC RBC Hgb Hct MCV MCH MCHC RDW Plt Count MPV Absolute Neuts (auto) Neutrophils % Lymphocytes % Monocytes % Eosinophils % Basophils % Nucleated RBC % Sodium Potassium Chloride Carbon Dioxide Anion Gap BUN Creatinine Est GFR (CKD-EPI)AfAm Est GFR (CKD-EPI)NonAf Random Glucose Calcium Total Bilirubin AST ALT Alkaline Phosphatase Creatine Kinase Troponin I Total Protein Albumin Lipase Urine Color Yellow Urine Appearance Cloudy Urine pH 6.5 D Ur Specific [place] 1.022 Urine Protein Negative Urine Glucose (UA) Negative Urine Ketones Negative Urine Blood Negative Urine Nitrite Negative Urine Bilirubin Negative Urine Urobilinogen 0.2 Ur Leukocyte Esterase 2+ H Urine WBC (Auto) 97 Urine RBC (Auto) 12 Urine Casts (Auto) 0 U Epithel Cells (Auto) >36 Urine Bacteria (Auto) 1497 Imagin05/15/20: Imaging was significant for: CT head w/o-no acute intracranial process, CT w/contrast chest-large mass occupying the R. upper lung w/tumor invasion into the right ventricle. Postobstructive pneumonia, CT abd/pelv- [id number] mass like area in the gastric body concerning for malignancy (new finding compared to previous CT on 07/19/17), Intra-and extra hepatic biliary ductal dilation w/no evidence for obstructing masses, Cholelithiasis. No acute gallbladder disease. 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 CT abd/pelv-5b1d5rf mass like area in the gastric body concerning for malignancy (new finding compared to previous CT on 07/19/17). Patient is admitted to [facility] for management of her abdominal pain. #ABDOMINAL PAIN - Most likely 2/2 to gastric metastasis vs Gastritis vs chronic mesenteric ischemia - CT showed: [id number] mass like area in the gastric body - Pain management with Toradol 15mg Q4H - Continue Protonix IV - Consulted GI, will f/u with recs - Differential Dx: Chronic Mesenteric ischemia (weight loss, anorexia, Hx of smoking, CT evidence of plaques), recommends eval with Duplex U/S of mesentaric arteries for evaluation of stenosis (Up to date: Sensitivity exceeding 90 percent and a negative predictive value of close to 99 percent has been reported in patients with more than a 50 percent stenosis of the superior mesenteric or celiac arteries- Negative study can r/o) . #Pneumonia? - CT chest : evidence of Postobstructive Pnuemonia - Does not fit the clinical picture of pneumonia: no WBC, PE CTAB, will hold Antibiotics for now - f/u with blood, urine, sputum cultures - consulted pulm and ID, will f/u with recs #UTI - UA analysis: 2+ leuk est w/ wbc 97, bacteria 1497, epithelial cells >30 - will treat with Rocephin 1 g - f/u urine culture, and urine leginella antigen #ANEMIA - Most likely 2/2 malignancy - f/u with Anemia study with: FOBT, Iron studies, and retic count - f/u CBC #DM - BGM, Sliding scale insulin regimen protocol #HTN - v/s stable, continue to monitor - Continue home meds #FEN - N/S @ 75mls/hr - continue to monitor electrolytes - Sodium controlled diet #DVT PPX: - Lovenox 40 mg #DISPO: - Continue to monitor in [place], pending GI, Pulm, and ID recs Visit type - Emergency Visit Emergency Visit: Yes ED Registration Date: 01/13/20 Care time: The patient presented to the Emergency Department on the above date and was hospitalized for further evaluation of their emergent condition. - New Patient This patient is new to me today: Yes Date on this admission: 01/15/20 - Critical Care Critical Care patient: No ATTENDING PHYSICIAN STATEMENT I saw and evaluated the patient. I reviewed the resident's note and discussed the case with the resident. I agree with the resident's findings and plan as documented. SUBJECTIVE: OBJECTIVE: ASSESSMENT AND PLAN:
[2020-01-13] MEDS: LIDOCAINE PATCH REMOVAL MC ONE (23:43)
[2020-01-14] MEDS ORDERED: LIDOCAINE 5% TOPICAL PATCH TP ONE
[2020-01-14] MEDS ORDERED: LIDOCAINE 5% TOPICAL PATCH ONE (00:30)
[2020-01-14] MEDS ORDERED: MELATONIN 5 MG TABLETS PO ONE ×2 (02:55→21:57)
[2020-01-14] MEDS ORDERED: MELATONIN 5 MG TABLETS ONE (02:58)
[2020-01-14] MEDS: SODIUM CHLORIDE 1,000 ML IV SCH ×2 (04:16→13:22)
[2020-01-14] MEDS ORDERED: KETOROLAC TROMETHAMINE 15 MG/ML VIAL ONE (04:59)
[2020-01-14] MEDS ORDERED: PREGABALIN 100 MG CAPSULE ONE (06:12)
[2020-01-14] MEDS: PREGABALIN 100 MG CAPSULE PO SCH ×3 (06:16→21:31)
[2020-01-14] MEDS ORDERED: INSULIN SLIDING SCALE (NOVOLOG) 1 VIAL SQ SCH (07:00)
[2020-01-14] MEDS ORDERED: PANTOPRAZOLE 40 MG TABLET PO SCH (07:00)
[2020-01-14] MEDS: INSULIN SLIDING SCALE (NOVOLOG) 1 VIAL SQ SCH ×4 (07:10→21:30)
[2020-01-14 07:16] LABS: BASO % 0.7 % (0-2.0); EOS % 0.8 % (0-4.5); HEMATOCRIT 28.6 % (32.4-45.2); HEMOGLOBIN 8.9 GM/dL (10.7-15.3); LYMPH % 21.1 % (8-40); MCH 26.2 pg (25.7-33.7); MCHC 30.9 g/dl (32.0-36.0); MEAN CELL VOLUME 84.6 fl (80-96); MEAN PLT VOLUME 9.4 fl (7.5-11.1); NEUT % 68.4 % (42.8-82.8); PLATELET COUNT 191 K/MM3 (134-434); RBC 3.39 M/mm3 (3.60-5.2); RDW 17.3 % (11.6-15.6); WHITE BLOOD COUNT 7.3 K/mm3 (4.0-10.0)
[2020-01-14 07:48] LABS: ALBUMIN 3.5 g/dl (3.4-5.0); BILIRUBIN,TOTAL 0.3 mg/dL (0.2-1); BLOOD UREA NITROGEN 13.9 mg/dL (7-18); CALCIUM 9.5 mg/dL (8.5-10.1); CREATININE 1.3 mg/dL (0.55-1.3); MAGNESIUM 2.4 mg/dL (1.8-2.4); PHOSPHOROUS 4.5 mg/dL (2.5-4.9); POTASSIUM 3.9 mmol/L (3.5-5.1); TOT PROT 7.6 g/dl (6.4-8.2)
[2020-01-14] MEDS ORDERED: CEFTRIAXONE 1 GM/50 ML BAG ONE (08:32)
[2020-01-14] MEDS ORDERED: ENOXAPARIN NA (PORCINE) 40 MG/0.4 ML DISP.SYRIN SQ ONE (08:32)
[2020-01-14] MEDS ORDERED: PANTOPRAZOLE SODIUM 40 MG VIAL ONE (08:32)
--- NOTE | 2020-01-14 09:11 | EKG ---
Test Reason : Blood Pressure : / mmHG Vent. Rate : 064 BPM Atrial Rate : 064 BPM P-R Int : 132 ms QRS Dur : 074 ms QT Int : 424 ms P-R-T Axes : 028 071 064 degrees QTc Int : 437 ms NORMAL SINUS RHYTHM NORMAL ECG WHEN COMPARED WITH ECG OF 07-MAR-2017 13:17, PREMATURE ATRIAL COMPLEXES ARE NO LONGER PRESENT Confirmed by Duncan Sheldon ([id number]) on 01/14/2020 9:10:46 AM Referred By: Confirmed By:Duncan Sheldon
[2020-01-14] MEDS: PANTOPRAZOLE SODIUM 40 MG VIAL IVPUSH SCH (09:14)
[2020-01-14] MEDS: NICOTINE 14 MG/24 HOURS TOPICAL PATCH TD SCH (09:14)
[2020-01-14] MEDS: EZETIMIBE 10 MG TABLET (FP) PO SCH (09:15)
[2020-01-14] MEDS ORDERED: LIDOCAINE PATCH REMOVAL MC SCH (10:00)
[2020-01-14] MEDS ORDERED: CEFTRIAXONE 1 GM in DEXTROSE 5%-WATER - 50 ML IVPB SCH (10:00)
[2020-01-14] MEDS ORDERED: ENOXAPARIN NA (PORCINE) 40 MG/0.4 ML DISP.SYRIN SQ SCH (10:00)
--- NOTE | 2020-01-14 10:00 | CON.GI ---
Consult Consult Specialty:: GI Referred by:: Hospitalist Service Reason for Consultation:: Abdominal pain - History of Present Illness Chief Complaint: Abdominal pain and poor appetite History of Present Illness: 64F, poor historian, apparently treated for small cell lung ca, s/p ? resection of brain mets, RT and chemo, admitted for evaluation of abdominal pain (mid abdomen) and diminished appetite. Had not been receiving therapy for 6 months now as she has been depressed. Believes that [facility] [place]/ She cannot remember the name of physician or when it was performed. No change in bowel habits/rectal bleeding. No family history of colorectal cancer or other GI malignancy. CT scan performed revealed large right upper lobe mass, cilated CBD 1.4 CM without obvious obstruction and possible mass in body of the stomach. Received lovenox this morning. Being treated for PNA. - History Source History Provided By: Patient, Medical Record Limitations to Obtaining History: Poor Historian - Past Medical History Cardio/Vascular: Yes: HTN Pulmonary: Yes: Cancer (Small cell lung cancer) Endocrine: Yes: Diabetes Mellitus (DM II) - Past Surgical History Additional Surgical History: Brain surgery (? resection of metastases) - Alcohol/Substance Use Hx Alcohol Use: No History of Substance Use: reports: None - Smoking History Smoking history: Current every day smoker Have you smoked in the past 12 months: Yes Aproximately how many cigarettes per day: 10 - Social History Usual Living Arrangement: Alone History of Recent Travel: No Home Medications - Allergies Allergies/Adverse Reactions: Allergies Allergy/AdvReac Type Severity Reaction Status Date / Time Sulfa (Sulfonamide Allergy Unknown Verified 03/09/17 12:06 Antibiotics) - Home Medications Home Medications: Ambulatory Orders Buspirone HCl [Buspar -] 5 mg PO BID 10/05/16 Esomeprazole Magnesium 40 mg PO DAILY 10/05/16 Ezetimibe [Zetia -] 10 mg PO DAILY 10/05/16 Pregabalin [Lyrica -] 100 mg PO TID 10/05/16 Sertraline HCl [Zoloft -] 100 mg PO DAILY #30 tablet 10/06/16 Zolpidem Tartrate [Ambien] 10 mg PO HS PRN #14 tablet MDD 10 10/06/16 Losartan Potassium 100 mg PO DAILY 03/07/17 Umeclidinium Brm/Vilanterol Tr [Anoro Ellipta 62.5-25 Mcg INH] 1 each IH DAILY 03/07/17 Family Medical History Other Family History: No family history of colorectal cancer or other GI malignancy Review of Systems - Review of Systems Constitutional: denies: Chills Cardiovascular: denies: Chest Pain Respiratory: denies: Cough Gastrointestinal: reports: Abdominal Pain, Nausea. denies: Diarrhea, Melena, Rectal Bleeding Physical Exam-GI Vital Signs: Vital Signs Temperature 97.8 F 01/14/20 06:48 Pulse Rate 60 01/14/20 06:48 Respiratory Rate 17 01/14/20 06:48 Blood Pressure 114/66 01/14/20 06:48 O2 Sat by Pulse Oximetry (%) 100 01/14/20 08:20 Constitutional: Yes: Calm Eyes: No: Sclera Icterus Cardiovascular: Yes: Regular Rate and Rhythm Respiratory: Yes: CTA Bilaterally (upper lung field), Diminished Gastrointestinal Inspection: No: Distention ...Auscultate: Yes: Normoactive Bowel Sounds ...Palpate: Yes: Tenderness (Mid abdomen) Edema: No (No LE edema) Neurological: Yes: Alert Labs: CBC, BMP 01/14/20 06:45 01/14/20 06:45 Imaging - Results Cat Scan: Report Reviewed, Image Reviewed Problem List - Problems (1) Gastric mass Assessment/Plan: Question of gastric mass vs. underdistention of the stomach: ? primary gastric mass. metastatic disease from lung ca to GI tract uncomon Dilated biliary tract, however liver chemistries not suggestive of obstructive process Advise: Clear diet MRCP to evaluate biliary tract (ordered) Will likely need upper endoscopy once medicall cleared for such. Hold [employer] tomorrow 01/14 Oncology evaluation Attempting to obtain further information regarding previous endoscopic evaluations Code(s): K31.89 - OTHER DISEASES OF STOMACH AND DUODENUM
--- NOTE | 2020-01-14 10:25 | PN ---
Progress Note (short form) - Note Progress Note: ID consult dictated imp/reccd 64 yo female with small cell ca of the RUL with brain mets s/p craniotomy and whole brain RT known CBD dilatation- has refused MRCP in the past has been away from medical care for 6 months now, comes to ED with c/o midepigastric pain for last 6 months no fevers no cough, no hypoxia, no sob no fevers reviewed ct scan with radiologist no pneumonia chronic cbd dilatation- no fevers, leukocytosis to suggest biliary sepsis- per GI no dysuria to suggest UTI cultures pending will d/c antibiotics and observe oncology evaluation pending Problem List - Problems (1) Metastatic cancer Code(s): C79.9 - SECONDARY MALIGNANT NEOPLASM OF UNSPECIFIED SITE Qualifiers: Area of secondary neoplastic involvement: other site Qualified Code(s): C79.89 - Secondary malignant neoplasm of other specified sites (2) Lung cancer Code(s): C34.90 - MALIGNANT NEOPLASM OF UNSP PART OF UNSP BRONCHUS OR LUNG (3) Pneumonia Code(s): J18.9 - PNEUMONIA, UNSPECIFIED ORGANISM Qualifiers: Pneumonia type: due to unspecified organism Laterality: unspecified laterality Lung location: unspecified part of lung Qualified Code(s): J18.9 - Pneumonia, unspecified organism (4) Dilated bile duct Code(s): K83.8 - OTHER SPECIFIED DISEASES OF BILIARY TRACT
--- NOTE | 2020-01-14 11:32 | CON.PULM ---
Consult Consult Specialty:: PULM/CCM Referred by:: Hospitalist Reason for Consultation:: Lung CA / PNA - History of Present Illness Chief Complaint: Abdominal pain History of Present Illness: 64 F, known High grade Neuroendocrine carcinoma small cell lung CA of the RUL, known brain metastasis (last chemo 07/16), heroin and and nicotine dependence (1 PPD), arthritis, DM, GERD, HTN, HLD, anxiety and depression. Admitted via the ER due to progressive worsening of abdominal pain over 6 months. Pain described as non radiating, 5/10 at rest and worsens to 10/10 with movement. Reports 70 to 80 pound weight loss. Denies hemoptysis or night sweats. CT : enlarging RUL mass / no evidence of PNA - History Source History Provided By: Patient Limitations to Obtaining History: No Limitations - Past Medical History Cardio/Vascular: Yes: HTN Pulmonary: Yes: Bronchitis, Cancer (Small cell lung cancer), Pneumonia. No: COPD, O2 Dependent, Previously Intubated, Pulmonary Embolus, Pulmonary Fibrosis, Sleep Apnea Endocrine: Yes: Diabetes Mellitus (DM II) - Past Surgical History Additional Surgical History: Brain surgery (? resection of metastases) - Alcohol/Substance Use Hx Alcohol Use: No History of Substance Use: reports: None - Smoking History Smoking history: Current every day smoker Have you smoked in the past 12 months: Yes Aproximately how many cigarettes per day: 10 - Social History Usual Living Arrangement: Alone History of Recent Travel: No Home Medications - Allergies Allergies/Adverse Reactions: Allergies Allergy/AdvReac Type Severity Reaction Status Date / Time Sulfa (Sulfonamide Allergy Unknown Verified 03/09/17 12:06 Antibiotics) - Home Medications Home Medications: Ambulatory Orders Buspirone HCl [Buspar -] 5 mg PO BID 10/05/16 Esomeprazole Magnesium 40 mg PO DAILY 10/05/16 Ezetimibe [Zetia -] 10 mg PO DAILY 10/05/16 Pregabalin [Lyrica -] 100 mg PO TID 10/05/16 Sertraline HCl [Zoloft -] 100 mg PO DAILY #30 tablet 10/06/16 Zolpidem Tartrate [Ambien] 10 mg PO HS PRN #14 tablet MDD 10 10/06/16 Losartan Potassium 100 mg PO DAILY 03/07/17 Umeclidinium Brm/Vilanterol Tr [Anoro Ellipta 62.5-25 Mcg INH] 1 each IH DAILY 03/07/17 Review of Systems - Review of Systems Constitutional: reports: Loss of Appetite, Malaise, Unintentional Wgt. Loss. denies: Chills, Fever, Night Sweats Eyes: reports: No Symptoms HENT: reports: No Symptoms Neck: reports: No Symptoms Cardiovascular: reports: Shortness of Breath. denies: Chest Pain, Edema, Palpitations Respiratory: reports: Cough, SOB on Exertion, Wheezing. denies: Hemoptysis, Snoring, SOB Gastrointestinal: reports: No Symptoms Genitourinary: reports: No Symptoms Breasts: reports: No Symptoms Reported Musculoskeletal: reports: No Symptoms Integumentary: reports: No Symptoms Neurological: reports: No Symptoms Endocrine: reports: No Symptoms Hematology/Lymphatic: reports: No Symptoms Psychiatric: reports: No Symptoms Physical Exam Vital Sings: Vital Signs Temperature 97.8 F 01/14/20 06:48 Pulse Rate 60 01/14/20 06:48 Respiratory Rate 17 01/14/20 06:48 Blood Pressure 114/66 01/14/20 06:48 O2 Sat by Pulse Oximetry (%) 100 01/14/20 08:20 Constitutional: Yes: No Distress, Calm Eyes: Yes: Conjunctiva Clear, EOM Intact HENT: Yes: Atraumatic, Normocephalic Neck: Yes: Supple, Trachea Midline Cardiovascular: Yes: Regular Rate and Rhythm Respiratory: Yes: Diminished, On Nasal O2. No: Accessory Muscle Use, Stridor, Tachypnea, Wheezes ...Clubbing: No Gastrointestinal: Yes: Normal Bowel Sounds, Soft, Tenderness, Tenderness, Epigastrium. No: Pulsatile Mass Renal/: Yes: WNL Musculoskeletal: Yes: WNL Extremities: Yes: WNL Edema: No Peripheral Pulses WNL: Yes Integumentary: Yes: WNL Neurological: Yes: WNL, Alert, Oriented ...Motor Strength: WNL Psychiatric: Yes: WNL, Alert, Oriented Labs: CBC, BMP 01/14/20 06:45 01/14/20 06:45 Imaging - Results Chest X-ray: Report Reviewed, Image Reviewed Cat Scan: Report Reviewed, Image Reviewed Problem List - Problems (1) Dizziness Code(s): R42 - DIZZINESS AND GIDDINESS (2) Metastatic cancer Code(s): C79.9 - SECONDARY MALIGNANT NEOPLASM OF UNSPECIFIED SITE Qualifiers: Area of secondary neoplastic involvement: other site Qualified Code(s): C79.89 - Secondary malignant neoplasm of other specified sites (3) Squamous cell carcinoma of lung Code(s): C34.90 - MALIGNANT NEOPLASM OF UNSP PART OF UNSP BRONCHUS OR LUNG Qualifiers: Laterality: unspecified laterality Qualified Code(s): C34.90 - Malignant neoplasm of unspecified part of unspecified bronchus or lung (4) Asthma Code(s): J45.909 - UNSPECIFIED ASTHMA, UNCOMPLICATED Qualifiers: Asthma severity: mild intermittent Asthma complication type: with status asthmaticus Qualified Code(s): J45.22 - Mild intermittent asthma with status asthmaticus (5) Drug-induced mood disorder Code(s): F19.94 - OTH PSYCHOACTIVE SUBSTANCE USE, UNSP W MOOD DISORDER (6) GERD (gastroesophageal reflux disease) Code(s): K21.9 - GASTRO-ESOPHAGEAL REFLUX DISEASE WITHOUT ESOPHAGITIS Qualifiers: Esophagitis presence: without esophagitis Qualified Code(s): K21.9 - Gastro-esophageal reflux disease without esophagitis (7) Hyperlipidemia associated with type 2 diabetes mellitus Code(s): E11.69 - TYPE 2 DIABETES MELLITUS WITH OTHER SPECIFIED COMPLICATION; E78.5 - HYPERLIPIDEMIA, UNSPECIFIED (8) Mass of right lung Code(s): R91.8 - OTHER NONSPECIFIC ABNORMAL FINDING OF LUNG FIELD (9) Nicotine dependence Code(s): F17.200 - NICOTINE DEPENDENCE, UNSPECIFIED, UNCOMPLICATED Qualifiers: Nicotine product type: cigarettes Substance use status: in withdrawal Qualified Code(s): F17.213 - Nicotine dependence, cigarettes, with withdrawal (10) Cocaine dependence, uncomplicated Code(s): F14.20 - COCAINE DEPENDENCE, UNCOMPLICATED (11) Anxiety and depression Code(s): F41.9 - ANXIETY DISORDER, UNSPECIFIED; F32.9 - MAJOR DEPRESSIVE DISORDER, SINGLE EPISODE, UNSPECIFIED Assessment/Plan IMP: No evidence of PNA or infection PLAN: Patient has had medical follow up for at least 6 months. Her mass has enlarged and appears to be compressing the right atrium: volume resuscitation and avoid hypovolemia. Would monitor off ABX Supplemental O2 as needed BD TX PRN No clear indication for systemic steroids Nutritional support VTE prophylaxis Will follow Thank you. Dr Patterson
[2020-01-14] MEDS: LIDOCAINE PATCH REMOVAL MC ONE (12:28)
[2020-01-14 13:45] VITALS: BMI 24.7
[2020-01-14] MEDS: UMECLIDINIUM/VILANTEROL (ANORO) 62.5/25 MCG INHALER IH SCH ×2 (14:31→15:09)
--- NOTE | 2020-01-14 16:42 | PN ---
Teaching Attending Note Name of Resident: Rory Birmingham ATTENDING PHYSICIAN STATEMENT I saw and evaluated the patient. I reviewed the resident's note and discussed the case with the resident. I agree with the resident's findings and plan as documented. ASSESSMENT AND PLAN: Ms. Umanzor is a 64 yo woman with hx of SCLC of RUL s/p Carbo/etoposide in 2016, did not return for follow up until December.. She presented with right hemiparesis and underwent a left parietal craniotomy and resection of metastatic small cell undifferentiated carcinoma (KRAS+ PDL-1 30-40%) on 10/30/[address] [facility]. Preop staging demonstrated a 5cm RUL mass with mediastinal LAD and likely adrenal mets as well as the 5.2cm left frontoparietal mass w/edema and mass effect. Postop MRI brain demonstrated residual enhancing tumor at the surgical cavity as well as postsurgical changes. Received whole brain RT - 10 days Completed on 02/09/19. completed 5 cx carbo/etoposide 06/14 Lost to f/u Now presents with failure to thrive and epigastric pain. Also reports intermittent hemoptysis CT scans very large 10 cm RUL mass invading the mediastinum and rt. atrium. LT. adrenal nodularity. ? gastric mass COVID testing and cultures pending Gi team to consider EGD MAy be a candidate for immunotherapy -- pembrolizumab, when dischargedl as outpatient will also request rad-onc input will follow and make further recommendations based on clinical course
--- NOTE | 2020-01-14 17:24 | CONSULT ---
Consultation: REQUESTING PROVIDER: Dr. Merida CONSULT REQUEST: We have been asked to medically evaluate this patient for SCLC. HISTORY OF PRESENT ILLNESS: Pt. is a 64 y.o. F w/ PMHx. of HLD, Depression, PolySubstance Abuse(Cocaine and Heroin-IV) and Metastatic SCLC( s/p Etoposide/Carboplatin x2- last in May2019; s/p Lung resection, s/p L. posterior craniotomy, s/p whole brain RT-completed in 2018) presents for abdominal pain. Pt. states she stopped treatment (completed 5/6 cycles in last treatment) because of the side effects. Pt. had worsening lethargy and fatigue, per chart review Pt. was also depressed. Pt. states that over this time she has had 70-80 lb. weight loss, decreased PO intake, decreased appetite, worsening lethargy, night sweatx, episodes of scant hemoptysis(last yesterday), and difficulty swallowing. Pt. had CT A/P pelvis here which showed enlargement of RUL masswith extension into mediastinum and R. [place], L adrenal mass/nodule, and new gastric body mass. Pt. is Full Code. Pt. lives alone and is requesting VNS. REVIEW OF SYSTEMS: As above PHYSICAL EXAMINATION Vital Signs - 24 hr 01/13/20 01/14/20 01/14/20 19:40 01:05 01:49 Temperature 98.3 F 98.3 F Pulse Rate Pulse Rate [ Left Radial] Pulse Rate [ 67 68 Radial] Respiratory 20 20 Rate Blood Pressure Blood Pressure 116/75 134/86 [Left Arm] O2 Sat by Pulse 98 100 98 Oximetry (%) 01/14/20 01/14/20 01/14/20 03:13 04:12 06:48 Temperature 98.0 F 97.8 F Pulse Rate Pulse Rate [ 60 60 Left Radial] Pulse Rate [ Radial] Respiratory 18 17 Rate Blood Pressure Blood Pressure 113/65 114/66 [Left Arm] O2 Sat by Pulse 98 100 100 Oximetry (%) 01/14/20 01/14/20 01/14/20 08:20 11:15 11:30 Temperature 97.4 F L Pulse Rate Pulse Rate [ 50 L 58 L Left Radial] Pulse Rate [ Radial] Respiratory 16 16 Rate Blood Pressure Blood Pressure 85/48 L 105/61 [Left Arm] O2 Sat by Pulse 100 100 100 Oximetry (%) 01/14/20 01/14/20 13:33 14:00 Temperature 98.3 F Pulse Rate 52 L Pulse Rate [ Left Radial] Pulse Rate [ Radial] Respiratory 20 Rate Blood Pressure 107/52 L Blood Pressure [Left Arm] O2 Sat by Pulse 100 100 Oximetry (%) GENERAL: Awake, alert, and oriented, in mild distress. HEAD: Normal with no signs of trauma. EYES: Sclera anicteric, conjunctiva clear. EARS, NOSE, THROAT: Moist mucous membranes. NECK: Normal range of motion, supple without JVD. LUNGS: Breath sounds equal, clear to auscultation bilaterally. No wheezes, and no crackles. No accessory muscle use. HEART: Regular rate and rhythm, normal S1 and S2 without murmur, rub or gallop. ABDOMEN: Soft, mild periumbilical tenderness to deep palpation, not distended, normoactive bowel sounds, no hepatomegaly or splenomegaly. MUSCULOSKELETAL: No CVA tenderness. UPPER EXTREMITIES: 2+ pulses, warm, well-perfused. No cyanosis. No clubbing. No peripheral edema. LOWER EXTREMITIES: 1+ dorsal pedal pulses, warm, well-perfused. No calf tenderness. No peripheral edema. NEUROLOGICAL: No focal deficits Normal speech. Gait not assessed PSYCHIATRIC: Cooperative. Good eye contact. Appropriate mood and affect. SKIN: Warm, dry, normal turgor Laboratory Results - last 24 hr 01/13/20 01/13/20 01/14/20 18:40 18:45 01:25 WBC RBC Hgb Hct MCV MCH MCHC RDW Plt Count MPV Absolute Neuts (auto) Neutrophils % Lymphocytes % Monocytes % Eosinophils % Basophils % Nucleated RBC % Retic Count Sodium Potassium 4.4 Chloride Carbon Dioxide Anion Gap BUN Creatinine Est GFR (CKD-EPI)AfAm Est GFR (CKD-EPI)NonAf POC Glucometer 103 Random Glucose Calcium Phosphorus Magnesium Iron TIBC Iron Saturation Unsaturated IBC Ferritin Total Bilirubin AST ALT Alkaline Phosphatase Total Protein Albumin Urine Color Yellow Urine Appearance Cloudy Urine pH 6.5 D Ur Specific [place] 1.022 Urine Protein Negative Urine Glucose (UA) Negative Urine Ketones Negative Urine Blood Negative Urine Nitrite Negative Urine Bilirubin Negative Urine Urobilinogen 0.2 Ur Leukocyte Esterase 2+ H Urine WBC (Auto) 97 Urine RBC (Auto) 12 Urine Casts (Auto) 0 U Epithel Cells (Auto) >36 Urine Bacteria (Auto) 1497 01/14/20 01/14/20 01/14/20 06:45 06:45 06:45 WBC 7.3 RBC 3.39 L Hgb 8.9 L Hct 28.6 L MCV 84.6 MCH 26.2 MCHC 30.9 L RDW 17.3 H Plt Count 191 MPV 9.4 Absolute Neuts (auto) 5.0 Neutrophils % 68.4 Lymphocytes % 21.1 Monocytes % 9.0 Eosinophils % 0.8 D Basophils % 0.7 Nucleated RBC % 0 Retic Count 0.85 Sodium 140 Potassium 3.9 Chloride 107 Carbon Dioxide 26 Anion Gap 8 BUN 13.9 Creatinine 1.3 Est GFR (CKD-EPI)AfAm 50.21 Est GFR (CKD-EPI)NonAf 43.32 POC Glucometer Random Glucose 91 Calcium 9.5 Phosphorus 4.5 Magnesium 2.4 Iron 30 L TIBC 250 Iron Saturation 12 L Unsaturated IBC 220 Ferritin 65.4 Total Bilirubin 0.3 AST 17 ALT 12 L Alkaline Phosphatase 85 Total Protein 7.6 Albumin 3.5 Urine Color Urine Appearance Urine pH Ur Specific [place] Urine Protein Urine Glucose (UA) Urine Ketones Urine Blood Urine Nitrite Urine Bilirubin Urine Urobilinogen Ur Leukocyte Esterase Urine WBC (Auto) Urine RBC (Auto) Urine Casts (Auto) U Epithel Cells (Auto) Urine Bacteria (Auto) 01/14/20 01/14/20 01/14/20 07:05 11:15 17:00 WBC RBC Hgb Hct MCV MCH MCHC RDW Plt Count MPV Absolute Neuts (auto) Neutrophils % Lymphocytes % Monocytes % Eosinophils % Basophils % Nucleated RBC % Retic Count Sodium Potassium Chloride Carbon Dioxide Anion Gap BUN Creatinine Est GFR (CKD-EPI)AfAm Est GFR (CKD-EPI)NonAf POC Glucometer 98 121 102 Random Glucose Calcium Phosphorus Magnesium Iron TIBC Iron Saturation Unsaturated IBC Ferritin Total Bilirubin AST ALT Alkaline Phosphatase Total Protein Albumin Urine Color Urine Appearance Urine pH Ur Specific [place] Urine Protein Urine Glucose (UA) Urine Ketones Urine Blood Urine Nitrite Urine Bilirubin Urine Urobilinogen Ur Leukocyte Esterase Urine WBC (Auto) Urine RBC (Auto) Urine Casts (Auto) U Epithel Cells (Auto) Urine Bacteria (Auto) Active Medications Generic Name Dose Route Start Last Admin Trade Name Freq PRN Reason Stop Dose Admin Ezetimibe 10 mg 01/14/20 10:00 01/14/20 09:15 Zetia - PO 10 mg DAILY FABIANA Administration Ceftriaxone Sodium 1 gm/ 50 mls @ 100 mls/hr 01/14/20 10:00 01/14/20 09:15 Dextrose IVPB 100 mls/hr DAILY FABIANA Administration Protocol Sodium Chloride 1,000 mls @ 75 mls/hr 01/14/20 04:00 01/14/20 13:22 Normal Saline - IV 75 mls/hr ASDIR FABIANA Administration Insulin Aspart 1 vial 01/14/20 07:00 01/14/20 17:06 Novolog Vial Sliding Scale - SQ Not Given ACHS FABIANA Protocol Ketorolac Tromethamine 15 mg 01/13/20 22:37 01/14/20 05:03 Toradol Injection - IVPUSH 01/18/20 22:36 15 mg Q6H PRN Administration PAIN LEVEL 6-10 Nicotine 14 mg 01/14/20 10:00 01/14/20 09:14 Nicoderm Patch - TD 14 mg DAILY FABIANA Administration Pantoprazole Sodium 40 mg 01/14/20 10:00 01/14/20 09:14 Protonix Iv IVPUSH 40 mg DAILY FABIANA Administration Pregabalin 100 mg 01/14/20 06:00 01/14/20 15:09 Lyrica - PO 100 mg TID FABIANA Administration Umeclidinium/Vilanterol 1 puff 01/14/20 10:00 01/14/20 15:09 Anoro Ellipta 62.5-25 Mcg Inh IH 1 puff DAILY FABIANA Administration ASSESSMENT/PLAN: Pt. is a 64 y.o. F w/ PMHx. of HLD, Depression, PolySubstance Abuse(Cocaine and Heroin-IV) and Metastatic SCLC( s/p Etoposide/Carboplatin x2- last in May2019; s/p Lung resection, s/p L. posterior craniotomy, s/p whole brain RT-completed in 2019) presents for abdominal pain. #Metastatic Small Cell Lung Cancer Pt. has recurrence of Lung CA with progression despite two treatment periods of carboplating and etoposide. Ideally as outpatient Pt. would receive immunotherapy as systemic treatment. As inpatient we will begin work up for systemic therapy. f/u Physical Therapy and Social Work for coordination. Ideally Pt. will be sent home with VNS and PT however if Pt. requires rehab will need alternative chem otherapy as systemic therapy. f/u LDH, CBC, CMP, and Uric Acid Iron studies noted, ID consult appreciated and noted, will start IV Iron QOD x 5 treatments GI consult appreciated for assessment of gastric mass Dispo: We will continue to follow the patient. Thank you for this consultative opportunity. Visit type - Emergency Visit Emergency Visit: Yes ED Registration Date: 01/13/20 Care time: The patient presented to the Emergency Department on the above date and was hospitalized for further evaluation of their emergent condition. - New Patient This patient is new to me today: Yes Date on this admission: 01/14/20 - Critical Care Critical Care patient: No ATTENDING PHYSICIAN STATEMENT I saw and evaluated the patient. I reviewed the resident's note and discussed the case with the resident. I agree with the resident's findings and plan as documented. SUBJECTIVE: OBJECTIVE: ASSESSMENT AND PLAN:
--- NOTE | 2020-01-14 17:31 | PN ---
Physical Exam: SUBJECTIVE: Patient seen and examined OBJECTIVE: Vital Signs Temperature 98.3 F 01/14/20 13:33 Pulse Rate 52 L 01/14/20 13:33 Respiratory Rate 20 01/14/20 13:33 Blood Pressure 107/52 L 01/14/20 13:33 O2 Sat by Pulse Oximetry (%) 100 01/14/20 14:00 GENERAL: The patient is awake, alert, and fully oriented, in no acute distress. NECK: full range of motion, supple. LUNGS: Breath sounds equal, clear to auscultation bilaterally HEART: Regular rate and rhythm, S1, S2 ABDOMEN: Soft, +periumbilical tenderness, nondistended, normoactive bowel sounds EXTREMITIES: 2+ pulses, warm, well-perfused, no edema. NEUROLOGICAL: Cranial nerves II through XII grossly intact. Normal speech PSYCH: Normal mood, normal affect. SKIN: Warm, dry, normal turgor Laboratory Results - last 24 hr 01/13/20 01/13/20 01/14/20 18:40 18:45 01:25 WBC RBC Hgb Hct MCV MCH MCHC RDW Plt Count MPV Absolute Neuts (auto) Neutrophils % Lymphocytes % Monocytes % Eosinophils % Basophils % Nucleated RBC % Retic Count Sodium Potassium 4.4 Chloride Carbon Dioxide Anion Gap BUN Creatinine Est GFR (CKD-EPI)AfAm Est GFR (CKD-EPI)NonAf POC Glucometer 103 Random Glucose Calcium Phosphorus Magnesium Iron TIBC Iron Saturation Unsaturated IBC Ferritin Total Bilirubin AST ALT Alkaline Phosphatase Total Protein Albumin Urine Color Yellow Urine Appearance Cloudy Urine pH 6.5 D Ur Specific [place] 1.022 Urine Protein Negative Urine Glucose (UA) Negative Urine Ketones Negative Urine Blood Negative Urine Nitrite Negative Urine Bilirubin Negative Urine Urobilinogen 0.2 Ur Leukocyte Esterase 2+ H Urine WBC (Auto) 97 Urine RBC (Auto) 12 Urine Casts (Auto) 0 U Epithel Cells (Auto) >36 Urine Bacteria (Auto) 1497 01/14/20 01/14/20 01/14/20 06:45 06:45 06:45 WBC 7.3 RBC 3.39 L Hgb 8.9 L Hct 28.6 L MCV 84.6 MCH 26.2 MCHC 30.9 L RDW 17.3 H Plt Count 191 MPV 9.4 Absolute Neuts (auto) 5.0 Neutrophils % 68.4 Lymphocytes % 21.1 Monocytes % 9.0 Eosinophils % 0.8 D Basophils % 0.7 Nucleated RBC % 0 Retic Count 0.85 Sodium 140 Potassium 3.9 Chloride 107 Carbon Dioxide 26 Anion Gap 8 BUN 13.9 Creatinine 1.3 Est GFR (CKD-EPI)AfAm 50.21 Est GFR (CKD-EPI)NonAf 43.32 POC Glucometer Random Glucose 91 Calcium 9.5 Phosphorus 4.5 Magnesium 2.4 Iron 30 L TIBC 250 Iron Saturation 12 L Unsaturated IBC 220 Ferritin 65.4 Total Bilirubin 0.3 AST 17 ALT 12 L Alkaline Phosphatase 85 Total Protein 7.6 Albumin 3.5 Urine Color Urine Appearance Urine pH Ur Specific [place] Urine Protein Urine Glucose (UA) Urine Ketones Urine Blood Urine Nitrite Urine Bilirubin Urine Urobilinogen Ur Leukocyte Esterase Urine WBC (Auto) Urine RBC (Auto) Urine Casts (Auto) U Epithel Cells (Auto) Urine Bacteria (Auto) 01/14/20 01/14/20 01/14/20 07:05 11:15 17:00 WBC RBC Hgb Hct MCV MCH MCHC RDW Plt Count MPV Absolute Neuts (auto) Neutrophils % Lymphocytes % Monocytes % Eosinophils % Basophils % Nucleated RBC % Retic Count Sodium Potassium Chloride Carbon Dioxide Anion Gap BUN Creatinine Est GFR (CKD-EPI)AfAm Est GFR (CKD-EPI)NonAf POC Glucometer 98 121 102 Random Glucose Calcium Phosphorus Magnesium Iron TIBC Iron Saturation Unsaturated IBC Ferritin Total Bilirubin AST ALT Alkaline Phosphatase Total Protein Albumin Urine Color Urine Appearance Urine pH Ur Specific [place] Urine Protein Urine Glucose (UA) Urine Ketones Urine Blood Urine Nitrite Urine Bilirubin Urine Urobilinogen Ur Leukocyte Esterase Urine WBC (Auto) Urine RBC (Auto) Urine Casts (Auto) U Epithel Cells (Auto) Urine Bacteria (Auto) Active Medications Generic Name Dose Route Start Last Admin Trade Name Freq PRN Reason Stop Dose Admin Buspirone HCl 5 mg 01/14/20 22:00 Buspar - PO BID FABIANA Ezetimibe 10 mg 01/14/20 10:00 01/14/20 09:15 Zetia - PO 10 mg DAILY FABIANA Administration Ceftriaxone Sodium 1 gm/ 50 mls @ 100 mls/hr 01/14/20 10:00 01/14/20 09:15 Dextrose IVPB 100 mls/hr DAILY FABIANA Administration Protocol Sodium Chloride 1,000 mls @ 75 mls/hr 01/14/20 04:00 01/14/20 13:22 Normal Saline - IV 75 mls/hr ASDIR FABIANA Administration Insulin Aspart 1 vial 01/14/20 07:00 01/14/20 17:06 Novolog Vial Sliding Scale - SQ Not Given ACHS FABIANA Protocol Ketorolac Tromethamine 15 mg 01/13/20 22:37 01/14/20 05:03 Toradol Injection - IVPUSH 01/18/20 22:36 15 mg Q6H PRN Administration PAIN LEVEL 6-10 Nicotine 14 mg 01/14/20 10:00 01/14/20 09:14 Nicoderm Patch - TD 14 mg DAILY FABIANA Administration Pantoprazole Sodium 40 mg 01/14/20 10:00 01/14/20 09:14 Protonix Iv IVPUSH 40 mg DAILY FABIANA Administration Pregabalin 100 mg 01/14/20 06:00 01/14/20 15:09 Lyrica - PO 100 mg TID FABIANA Administration Sertraline HCl 100 mg 01/15/20 10:00 Zoloft - PO DAILY FABIANA Umeclidinium/Vilanterol 1 puff 01/14/20 10:00 01/14/20 15:09 Anoro Ellipta 62.5-25 Mcg Inh IH 1 puff DAILY FABIANA Administration ASSESSMENT/PLAN: Patient is a 64 year old female with a PMH of 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 #Abdominal pain - Most likely 2/2 to gastric metastasis vs Gastritis - CT Abd: Cholelithiasis with dilated CBD, no obvious obstruction. Possible [id number] mass like area in the gastric body, no definite evidence of addtional metastatic disease within the abdomen/pelvis - MRCP ordered - Continue Protonix IV - Clear liquid diet - Plan for EGD - Gastroenterology (Dr. Richmond) consulted. Recommendations appreciated #R/o Pneumonia - CT chest: RUL mass has increased in size since prior (12/21/2018), now is compressing right ventricle - Does not fit the clinical picture of pneumonia: no WBC, PE CTAB, antibiotics held - f/u with blood, urine, sputum cultures - Legionella urine antigen negative - supplemental Oxygen to keep SPO2> 95% - monitor off abx - Pulmonology (Dr. Patterson) following. Recommendations appreciated - Infectious Disease (Dr. Barnett) following. Recommendations appreciated #Hyperkalemia - 6.7 on admission, likely hemolysis - K now normal #Asymptomatic bacteriuria - UA analysis: 2+ leuk est w/ wbc 97, bacteria 1497, epithelial cells >30 - Urine culture pending - will hold off abx for now and monitor #Anemia - Very Low iron (30), low-normal TIBC - Hypoproliferation reticulocyte index - Most likely 2/2 malignancy (Anemia of chronic disease) - Monitor CBC #Chronic back pain - Pain management with TYlenol/morphine - will avoid NSAIDs #Asthma - Anoro ellipta 1 puff daily (Home med) #GERD -Pantoprazole 40 mg qd (home med) #DM - ISS - BGM ACHS #Neuropathy - Pregabalin 100 mg TID (Home med) #HLD - Ezetimibe 10 mg QD #Depression/anxiety - Sertraline 150 mg qd, Buspirone 10mg bid (Home med) #HTN - Blood pressure low-normal, continue to monitor - Held home meds #Nicotine dependence (1 PPD) - Active - Nicoderm patch 14 mg QD #FEN - N/S @ 75mls/hr - Continue to monitor electrolytes - Clear liquid diet #DVT PPX: - Lovenox 40 mg held for possible GI procedure in am - SCDs #Disposition - Continue to monitor on [facility] floor. Has communicated interest in resuming chemotherapy and overall medical treatment Visit type - Emergency Visit Emergency Visit: Yes ED Registration Date: 01/13/20 Care time: The patient presented to the Emergency Department on the above date and was hospitalized for further evaluation of their emergent condition. - New Patient This patient is new to me today: Yes Date on this admission: 01/14/20 - Critical Care Critical Care patient: No ATTENDING PHYSICIAN STATEMENT I saw and evaluated the patient. I reviewed the resident's note and discussed the case with the resident. I agree with the resident's findings and plan as documented. SUBJECTIVE: OBJECTIVE: ASSESSMENT AND PLAN:
[2020-01-14] MEDS ORDERED: MORPHINE SULFATE 2 MG/ML VIAL IVPUSH PRN (17:33)
[2020-01-14] MEDS ORDERED: DOCUSATE SODIUM 100 MG CAPSULE (FP) PO PRN (17:34)
--- NOTE | 2020-01-14 17:48 | PN ---
Progress Note (short form) - Note Progress Note: ID consult dictated imp/reccd 64 yo female with small cell ca of the RUL with brain mets s/p craniotomy and whole brain RT known CBD dilatation- has refused MRCP in the past has been away from medical care for 6 months now, comes to ED with c/o midepigastric pain for last 6 months no fevers no cough, no hypoxia, no sob no fevers reviewed ct scan with radiologist no pneumonia chronic cbd dilatation- no fevers, leukocytosis to suggest biliary sepsis- per GI no dysuria to suggest UTI cultures pending will d/c antibiotics and observe oncology evaluation pending
--- NOTE | 2020-01-14 18:45 | PN ---
Teaching Attending Note Name of Resident: Dottie Greenwood ATTENDING PHYSICIAN STATEMENT I saw and evaluated the patient. I reviewed the resident's note and discussed the case with the resident. I agree with the resident's findings and plan as documented. SUBJECTIVE: Patient seen and examined at bedside, admitted for acute on chronic abdominal pain. VSS. OBJECTIVE: GENERAL: Awake, alert, and fully oriented, in no acute distress. HEAD: Normal with no signs of trauma. EYES: Pupils equal, round and reactive to light, extraocular movements intact, sclera anicteric, conjunctiva clear. EARS, NOSE, THROAT: Ears normal, nares patent, oropharynx clear without exudates. Moist mucous membranes. NECK: Normal range of motion, supple without lymphadenopathy, JVD, or masses. LUNGS: Breath sounds equal, clear to auscultation bilaterally. No wheezes, and no crackles. No accessory muscle use. HEART: Regular rate and rhythm, normal S1 and S2 without murmur, rub or gallop. ABDOMEN: Soft, Periumbilical ttp, not distended, normoactive bowel sounds, no guarding, no rebound, no masses. MUSCULOSKELETAL: Normal range of motion at all joints. No bony deformities or tenderness. No CVA tenderness. UPPER EXTREMITIES: 2+ pulses, warm, well-perfused. No cyanosis. No clubbing. No peripheral edema. LOWER EXTREMITIES: 2+ pulses, warm, well-perfused. No calf tenderness. No peripheral edema. NEUROLOGICAL: Cranial nerves II-XII intact. Normal speech. Normal gait. PSYCHIATRIC: Cooperative. Good eye contact. Appropriate mood and affect. SKIN: Warm, dry, normal turgor, no rashes or lesions noted, normal capillary refill. Vital Signs - 24 hr 01/13/20 01/14/20 01/14/20 19:40 01:05 01:49 Temperature 98.3 F 98.3 F Pulse Rate Pulse Rate [ Left Radial] Pulse Rate [ 67 68 Radial] Respiratory 20 20 Rate Blood Pressure Blood Pressure 116/75 134/86 [Left Arm] O2 Sat by Pulse 98 100 98 Oximetry (%) 01/14/20 01/14/20 01/14/20 03:13 04:12 06:48 Temperature 98.0 F 97.8 F Pulse Rate Pulse Rate [ 60 60 Left Radial] Pulse Rate [ Radial] Respiratory 18 17 Rate Blood Pressure Blood Pressure 113/65 114/66 [Left Arm] O2 Sat by Pulse 98 100 100 Oximetry (%) 01/14/20 01/14/20 01/14/20 08:20 11:15 11:30 Temperature 97.4 F L Pulse Rate Pulse Rate [ 50 L 58 L Left Radial] Pulse Rate [ Radial] Respiratory 16 16 Rate Blood Pressure Blood Pressure 85/48 L 105/61 [Left Arm] O2 Sat by Pulse 100 100 100 Oximetry (%) 01/14/20 01/14/20 01/14/20 13:33 14:00 17:45 Temperature 98.3 F 98.5 F Pulse Rate 52 L 63 Pulse Rate [ Left Radial] Pulse Rate [ Radial] Respiratory 20 20 Rate Blood Pressure 107/52 L 97/56 L Blood Pressure [Left Arm] O2 Sat by Pulse 100 100 99 Oximetry (%) Microbiology 01/14/20 11:30 Urine For Antigen Detection Legionella Antigen - Final 01/14/20 11:30 Urine For Antigen Detection Streptococcus pneumoniae Antigen (M - Final Laboratory Results - last 24 hr 01/13/20 01/13/20 01/14/20 18:40 18:45 01:25 WBC RBC Hgb Hct MCV MCH MCHC RDW Plt Count MPV Absolute Neuts (auto) Neutrophils % Lymphocytes % Monocytes % Eosinophils % Basophils % Nucleated RBC % Retic Count Sodium Potassium 4.4 Chloride Carbon Dioxide Anion Gap BUN Creatinine Est GFR (CKD-EPI)AfAm Est GFR (CKD-EPI)NonAf POC Glucometer 103 Random Glucose Calcium Phosphorus Magnesium Iron TIBC Iron Saturation Unsaturated IBC Ferritin Total Bilirubin AST ALT Alkaline Phosphatase Total Protein Albumin Urine Color Yellow Urine Appearance Cloudy Urine pH 6.5 D Ur Specific [place] 1.022 Urine Protein Negative Urine Glucose (UA) Negative Urine Ketones Negative Urine Blood Negative Urine Nitrite Negative Urine Bilirubin Negative Urine Urobilinogen 0.2 Ur Leukocyte Esterase 2+ H Urine WBC (Auto) 97 Urine RBC (Auto) 12 Urine Casts (Auto) 0 U Epithel Cells (Auto) >36 Urine Bacteria (Auto) 1497 01/14/20 01/14/20 01/14/20 06:45 06:45 06:45 WBC 7.3 RBC 3.39 L Hgb 8.9 L Hct 28.6 L MCV 84.6 MCH 26.2 MCHC 30.9 L RDW 17.3 H Plt Count 191 MPV 9.4 Absolute Neuts (auto) 5.0 Neutrophils % 68.4 Lymphocytes % 21.1 Monocytes % 9.0 Eosinophils % 0.8 D Basophils % 0.7 Nucleated RBC % 0 Retic Count 0.85 Sodium 140 Potassium 3.9 Chloride 107 Carbon Dioxide 26 Anion Gap 8 BUN 13.9 Creatinine 1.3 Est GFR (CKD-EPI)AfAm 50.21 Est GFR (CKD-EPI)NonAf 43.32 POC Glucometer Random Glucose 91 Calcium 9.5 Phosphorus 4.5 Magnesium 2.4 Iron 30 L TIBC 250 Iron Saturation 12 L Unsaturated IBC 220 Ferritin 65.4 Total Bilirubin 0.3 AST 17 ALT 12 L Alkaline Phosphatase 85 Total Protein 7.6 Albumin 3.5 Urine Color Urine Appearance Urine pH Ur Specific [place] Urine Protein Urine Glucose (UA) Urine Ketones Urine Blood Urine Nitrite Urine Bilirubin Urine Urobilinogen Ur Leukocyte Esterase Urine WBC (Auto) Urine RBC (Auto) Urine Casts (Auto) U Epithel Cells (Auto) Urine Bacteria (Auto) 01/14/20 01/14/20 01/14/20 07:05 11:15 17:00 WBC RBC Hgb Hct MCV MCH MCHC RDW Plt Count MPV Absolute Neuts (auto) Neutrophils % Lymphocytes % Monocytes % Eosinophils % Basophils % Nucleated RBC % Retic Count Sodium Potassium Chloride Carbon Dioxide Anion Gap BUN Creatinine Est GFR (CKD-EPI)AfAm Est GFR (CKD-EPI)NonAf POC Glucometer 98 121 102 Random Glucose Calcium Phosphorus Magnesium Iron TIBC Iron Saturation Unsaturated IBC Ferritin Total Bilirubin AST ALT Alkaline Phosphatase Total Protein Albumin Urine Color Urine Appearance Urine pH Ur Specific [place] Urine Protein Urine Glucose (UA) Urine Ketones Urine Blood Urine Nitrite Urine Bilirubin Urine Urobilinogen Ur Leukocyte Esterase Urine WBC (Auto) Urine RBC (Auto) Urine Casts (Auto) U Epithel Cells (Auto) Urine Bacteria (Auto) Home Medications Medication Instructions Recorded Buspirone HCl [Buspar -] 5 mg PO BID 10/05/16 Esomeprazole Magnesium 40 mg PO DAILY 10/05/16 Ezetimibe [Zetia -] 10 mg PO DAILY 10/05/16 Pregabalin [Lyrica -] 100 mg PO TID 10/05/16 Sertraline HCl [Zoloft -] 100 mg PO DAILY #30 tablet 10/06/16 Zolpidem Tartrate [Ambien] 10 mg PO HS PRN #14 tablet MDD 10 04/12/17 Losartan Potassium 100 mg PO DAILY 03/07/17 Umeclidinium Brm/Vilanterol Tr 1 each IH DAILY 03/07/17 [Anoro Ellipta 62.5-25 Mcg INH] Current Medications Generic Name Dose Route Start Last Admin Trade Name Freq PRN Reason Stop Dose Admin Buspirone HCl 10 mg 01/14/20 22:00 Buspar - PO BID FABIANA Docusate Sodium 100 mg 01/14/20 17:34 Colace - PO BID PRN CONSTIPATION Ezetimibe 10 mg 01/14/20 10:00 01/14/20 09:15 Zetia - PO 10 mg DAILY FABIANA Administration Sodium Chloride 1,000 mls @ 75 mls/hr 01/14/20 04:00 01/14/20 13:22 Normal Saline - IV 75 mls/hr ASDIR FABIANA Administration Insulin Aspart 1 vial 01/14/20 07:00 01/14/20 17:06 Novolog Vial Sliding Scale - SQ Not Given ACHS FABIANA Protocol Morphine Sulfate 2 mg 01/14/20 17:33 Morphine Sulfate IVPUSH Q6H PRN PAIN LEVEL 7 - 10 Nicotine 14 mg 01/14/20 10:00 01/14/20 09:14 Nicoderm Patch - TD 14 mg DAILY FABIANA Administration Pantoprazole Sodium 40 mg 01/14/20 10:00 01/14/20 09:14 Protonix Iv IVPUSH 40 mg DAILY FABIANA Administration Pregabalin 100 mg 01/14/20 06:00 01/14/20 15:09 Lyrica - PO 100 mg TID FABIANA Administration Senna 1 tab 01/14/20 22:00 Senna - PO HS FABIANA Sertraline HCl 150 mg 01/14/20 22:00 Zoloft - PO HS FABIANA Umeclidinium/Vilanterol 1 puff 01/14/20 10:00 01/14/20 15:09 Anoro Ellipta 62.5-25 Mcg Inh IH 1 puff DAILY FABIANA Administration ASSESSMENT AND PLAN: 64 F Acute on chronic abdominal pain likely 2/2 gastric metastasis Prior PSA Metastatic SCLC s/p lobectomy, s/p brain RT w/ resection HTN HLD Insomnia Depression Anxiety COPD Neuropathy Plan: Supportive measures with IVF, O2 supplementation Mediastinal mass impinging on right atrium, avoid volume depletion Heme Onc following Pulmonary following ID following DVT ppx: due to diffuse mets with prior brain involvement, SCD/TEDs avoid AC
[2020-01-14 19:27] LABS: INR 1.08 (0.83-1.09); PROTHROMBIN TIME (PATIENT) 12.8 SEC (9.7-13.0)
[2020-01-14 19:30] LABS: ACTIVATED PTT 37.3 SECONDS (25.2-36.5)
--- NOTE | 2020-01-14 20:22 | CONS ---
DATE OF CONSULTATION: DATE OF DICTATION: 01/14/2020 INFECTIOUS DISEASE CONSULTATION HISTORY OF PRESENT ILLNESS: This is a 64-year-old woman who presents to the ER with chronic abdominal pain for the last 6 months. She has a history of metastatic small cell lung cancer. She has gotten chemotherapy last May 2019. She has had a lung resection. She has had a brain metastasis for which she had a craniotomy followed by whole brain radiation. She had stopped chemotherapy at the end of May, did not follow up, but she now returns with abdominal pain. She has noted that she has had a weight loss, decreased oral intake. She has had no fever, she has had no cough. She has had no nausea, vomiting, diarrhea, or dysuria. I am asked to see her for possible postobstructive pneumonia. She had a CAT scan of her chest, abdomen, and pelvis done in the emergency room that shows an enlarging right upper lobe mass. There is no evidence of any pneumonia. She has got an adrenal nodule and a possible gastric body mass. She has had no fevers or chills. She is otherwise awake and alert. She has a dilated CBD as well without obvious obstruction, which she has had in the past. She has been offered which she has refused as well. ALLERGIES: She is allergic to SULFA. She received vancomycin and Zosyn in the ER. PAST MEDICAL HISTORY: Notable for small cell lung cancer with metastases to the brain. She has a history of former substance use, diabetes, GERD, hypertension, hyperlipidemia, anxiety, and depression. SURGICAL HISTORY: Notable for lung tumor resection in 2017, and she has had a posterior parietal craniotomy in 2019. SOCIAL HISTORY: She is a 40 pack-year smoker and cocaine, heroin user in the past. She has a history of SULFA allergy. MEDICATION: Her medications as an outpatient include: 1. Zetia. 2. Lyrica. 3. Zoloft. 4. Ambien. 5. Losartan. 6. Ellipta inhaler. She is still an active smoker. REVIEW OF SYSTEMS: Notable for weight loss. She has had no fevers or chills, and she has had no cough. PHYSICAL EXAMINATION: Vital Signs: Temperature of 97.4, pulse of 50, blood pressure 85/48, respiratory rate 16, she is saturating 100% on room air. HEENT: Normocephalic. Eyes are anicteric. Neck: Supple. Lungs: Diminished breath sounds at the right lung. She has an axillary lymph node on the right. Heart: Regular rate and rhythm. Abdomen: She has midepigastric discomfort on palpation. Extremities: Without edema. LABORATORY: White count 7.3, hemoglobin 8.9, platelets 191, BUN and creatinine are 13 and 0.3. Urinalysis has 2+ leukocytes with greater than 36 epithelial cells. COVID serology is pending. Legionella urinary antigen is negative. Blood cultures, urine cultures are pending. IMPRESSION: In summary, this is a 64-year-old woman admitted with chronic abdominal pain with small cell cancer of the lung with brain metastases. She has no pneumonia on CAT scan which is reviewed with radiology. She has chronic common bile duct dilatation without fever. Her white count is suggestive of biliary sepsis. As well her liver function tests are normal. She will follow up with gastrointestinal. Question of gastric mass, again follow up with gastrointestinal. Will discontinue antibiotics at this time. No dysuria to suggest urinary tract infection, and the urinalysis in fact looks contaminated. DOMINGUEZ CASTRO M.D. [id number]
[2020-01-14] MEDS: SENNOSIDES 8.6MG TABLET (FP) PO SCH (21:30)
[2020-01-14] MEDS: busPIRone HCL 10 MG TABLET (FP) PO SCH (21:31)
[2020-01-14] MEDS: SERTRALINE HCL 50 MG TABLET (FP) PO SCH (21:31)
[2020-01-14] MEDS ORDERED: SERTRALINE HCL 50 MG TABLET (FP) PO SCH (22:00)
[2020-01-14] MEDS ORDERED: busPIRone HCL 5 MG TABLET PO SCH (22:00)
[2020-01-15] MEDS: INSULIN SLIDING SCALE (NOVOLOG) 1 VIAL SQ SCH ×4 (06:27→21:08)
[2020-01-15] MEDS: PREGABALIN 100 MG CAPSULE PO SCH ×3 (06:27→21:07)
[2020-01-15] MEDS: SODIUM CHLORIDE 1,000 ML IV SCH (06:27)
[2020-01-15 07:55] LABS: BASO % 0.6 % (0-2.0); EOS % 0.8 % (0-4.5); HEMATOCRIT 24.9 % (32.4-45.2); HEMOGLOBIN 7.8 GM/dL (10.7-15.3); LYMPH % 25.2 % (8-40); MCH 26.4 pg (25.7-33.7); MCHC 31.2 g/dl (32.0-36.0); MEAN CELL VOLUME 84.5 fl (80-96); MEAN PLT VOLUME 9.3 fl (7.5-11.1); MONO % 8.4 % (3.8-10.2); PLATELET COUNT 165 K/MM3 (134-434); RBC 2.95 M/mm3 (3.60-5.2); RDW 16.8 % (11.6-15.6); WHITE BLOOD COUNT 5.9 K/mm3 (4.0-10.0)
[2020-01-15 08:29] LABS: ALBUMIN 2.9 g/dl (3.4-5.0); BILIRUBIN,TOTAL 0.2 mg/dL (0.2-1); BLOOD UREA NITROGEN 14.4 mg/dL (7-18); CALCIUM 8.3 mg/dL (8.5-10.1); CREATININE 1.1 mg/dL (0.55-1.3); MAGNESIUM 2.4 mg/dL (1.8-2.4); POTASSIUM 4.2 mmol/L (3.5-5.1); TOT PROT 6.5 g/dl (6.4-8.2); URIC ACID 5.4 mg/dL (2.6-7.2)
[2020-01-15] MEDS: UMECLIDINIUM/VILANTEROL (ANORO) 62.5/25 MCG INHALER IH SCH (09:24)
[2020-01-15] MEDS: NICOTINE 14 MG/24 HOURS TOPICAL PATCH TD SCH (09:24)
[2020-01-15] MEDS: PANTOPRAZOLE SODIUM 40 MG VIAL IVPUSH SCH (09:24)
[2020-01-15] MEDS: EZETIMIBE 10 MG TABLET (FP) PO SCH (09:24)
[2020-01-15] MEDS: busPIRone HCL 10 MG TABLET (FP) PO SCH ×2 (09:24→21:08)
[2020-01-15] MEDS ORDERED: SERTRALINE HCL 50 MG TABLET (FP) PO SCH (10:00)
[2020-01-15] MEDS ORDERED: ENOXAPARIN NA (PORCINE) 40 MG/0.4 ML DISP.SYRIN SQ SCH (10:00)
[2020-01-15] MEDS: IRON SUCROSE INJECTION 200 MG in SODIUM CHLORIDE 90 ML IVPB SCH (11:52)
--- NOTE | 2020-01-15 11:58 | PN.GI ---
GI Progress Note Subjective: Abdominal pain improved Proposed EGD today, however, COVID status still pending No overt bleeding reported MRCP report noted - Objective Vital Signs: Vital Signs Temperature 98.8 F 01/15/20 09:34 Pulse Rate 59 L 01/15/20 09:34 Respiratory Rate 20 01/15/20 09:34 Blood Pressure 116/58 L 01/15/20 09:34 O2 Sat by Pulse Oximetry (%) 98 01/15/20 09:34 Constitutional: Calm Eyes: No: Sclera Icterus Cardiovascular: Yes: Regular Rate and Rhythm Respiratory: Yes: Other (diminished right upper lung field) ...Auscultate: Yes: Normoactive Bowel Sounds ...Palpate: Yes: Soft. No: Hepatomegaly, Splenomegaly, Tenderness ...Percussion: No: Tympanitic ...Rectal Exam: Yes: Other (Horse Racer present: no ecternal lesions, no masses, light brown semiformed stool in rectal vault, guaiac negative.) Edema: No (No LE edema) Neurological: Yes: Alert Labs: CBC, BMP 01/15/20 07:24 01/15/20 07:24 INR, PTT INR 1.08 (0.83-1.09) 01/14/20 17:27 Problem List - Problems (1) Gastric mass Assessment/Plan: Question of gastric mass on previous CT scan. For EGD once Covid testing is back. Code(s): K31.89 - OTHER DISEASES OF STOMACH AND DUODENUM (2) Dilated bile duct Assessment/Plan: Diltaed biliary tract with cut off of distal CBD. LFT's not suggestive of obstruction. Will discuss with biliary endoscopist Dr. Xiong regarding ERCP, however I suspect that EUS may be a less invasive option for further evaluation. This was discussed with patient. Code(s): K83.8 - OTHER SPECIFIED DISEASES OF BILIARY TRACT (3) Anemia Assessment/Plan: No history of overt bleeding, guaiac negative on my exam and from specimen sent to lab Evaluation per heme/onc, primary team Code(s): D64.9 - ANEMIA, UNSPECIFIED
--- NOTE | 2020-01-15 12:13 | PN ---
Progress Note (short form) - Note Progress Note: Resting in NAD. Abdominal pain is improved. No CP or SOB. No acute events overnight. Intake & Output 01/12/20 01/13/20 01/14/20 01/15/20 23:59 23:59 23:59 23:59 Intake Total 700 Output Total 300 Balance 700 -300 Weight 162 lb 140 lb Last Vital Signs Temp Pulse Resp BP Pulse Ox 98.8 F 59 L 20 116/58 L 98 01/15/20 09:34 01/15/20 09:34 01/15/20 09:34 01/15/20 09:34 01/15/20 09:34 Active Medications Buspirone HCl (Buspar -) 10 mg PO BID [facility] Last Admin: 01/15/20 09:24 Dose: 10 mg Documented by: Docusate Sodium (Colace -) 100 mg PO BID PRN PRN Reason: CONSTIPATION Last Admin: 01/15/20 09:25 Dose: 100 mg Documented by: Ezetimibe (Zetia -) 10 mg PO DAILY [facility] Last Admin: 01/15/20 09:24 Dose: 10 mg Documented by: Sodium Chloride (Normal Saline -) 1,000 mls @ 75 mls/hr IV ASDIR [facility] Last Admin: 01/15/20 06:27 Dose: 75 mls/hr Documented by: Iron Sucrose 200 mg/ Sodium (Chloride) 100 mls @ 100 mls/hr IVPB Q48H [facility] Stop: 01/23/20 11:59 Last Admin: 01/15/20 11:52 Dose: 100 mls/hr Documented by: Insulin Aspart (Novolog Vial Sliding Scale -) 1 vial SQ ACHS [facility]; Protocol Last Admin: 01/15/20 11:02 Dose: Not Given Documented by: Morphine Sulfate (Morphine Sulfate) 2 mg IVPUSH Q6H PRN PRN Reason: PAIN LEVEL 7 - 10 Last Admin: 01/14/20 19:52 Dose: 2 mg Documented by: Nicotine (Nicoderm Patch -) 14 mg TD DAILY [facility] Last Admin: 01/15/20 09:24 Dose: 14 mg Documented by: Pantoprazole Sodium (Protonix Iv) 40 mg IVPUSH DAILY [facility] Last Admin: 01/15/20 09:24 Dose: 40 mg Documented by: Pregabalin (Lyrica -) 100 mg PO TID [facility] Last Admin: 01/15/20 06:27 Dose: 100 mg Documented by: Senna (Senna -) 1 tab PO HS [facility] Last Admin: 01/14/20 21:30 Dose: 1 tab Documented by: Sertraline HCl (Zoloft -) 150 mg PO HS [facility] Last Admin: 01/14/20 21:31 Dose: 150 mg Documented by: Umeclidinium/Vilanterol (Anoro Ellipta 62.5-25 Mcg Inh) 1 puff IH DAILY [facility] Last Admin: 01/15/20 09:24 Dose: 1 puff Documented by: Constitutional: Yes: No Distress Eyes: Yes: Conjunctiva Clear, EOM Intact HENT: Yes: Atraumatic, Normocephalic Neck: Yes: Supple, Trachea Midline Cardiovascular: Yes: Regular Rate and Rhythm Respiratory: Yes: Diminished, On Nasal O2. No: Accessory Muscle Use, Stridor, Tachypnea, Wheezes ...Clubbing: No Gastrointestinal: Yes: Normal Bowel Sounds, Soft, Tenderness, Tenderness, Ep igastrium. No: Pulsatile Mass Renal/: Yes: WNL Musculoskeletal: Yes: WNL Extremities: Yes: WNL Edema: No Peripheral Pulses WNL: Yes Integumentary: Yes: WNL Neurological: Yes: WNL, Alert, Oriented ...Motor Strength: WNL Psychiatric: Yes: WNL, Alert, Oriented Labs: Laboratory Results - last 24 hr 01/14/20 01/14/20 01/14/20 06:45 17:00 17:27 WBC RBC Hgb Hct MCV MCH MCHC RDW Plt Count MPV Absolute Neuts (auto) Neutrophils % Lymphocytes % Monocytes % Eosinophils % Basophils % Nucleated RBC % PT with INR 12.80 INR 1.08 PTT (Actin FS) 37.3 H Sodium 140 Potassium 3.9 Chloride 107 Carbon Dioxide 26 Anion Gap 8 BUN 13.9 Creatinine 1.3 Est GFR (CKD-EPI)AfAm 50.21 Est GFR (CKD-EPI)NonAf 43.32 POC Glucometer 102 Random Glucose 91 Hemoglobin A1c % Uric Acid Calcium 9.5 Phosphorus 4.5 Magnesium 2.4 Iron 30 L TIBC 250 Iron Saturation 12 L Unsaturated IBC 220 Ferritin 65.4 Total Bilirubin 0.3 AST 17 ALT 12 L Alkaline Phosphatase 85 LD Total Total Protein 7.6 Albumin 3.5 Stool Occult Blood 01/14/20 01/15/20 01/15/20 21:29 06:25 07:24 WBC 5.9 RBC 2.95 L Hgb 7.8 L Hct 24.9 L MCV 84.5 MCH 26.4 MCHC 31.2 L RDW 16.8 H Plt Count 165 MPV 9.3 Absolute Neuts (auto) 3.8 Neutrophils % 65.0 Lymphocytes % 25.2 Monocytes % 8.4 Eosinophils % 0.8 Basophils % 0.6 Nucleated RBC % 0 PT with INR INR PTT (Actin FS) Sodium Potassium Chloride Carbon Dioxide Anion Gap BUN Creatinine Est GFR (CKD-EPI)AfAm Est GFR (CKD-EPI)NonAf POC Glucometer 134 87 Random Glucose Hemoglobin A1c % Uric Acid Calcium Phosphorus Magnesium Iron TIBC Iron Saturation Unsaturated IBC Ferritin Total Bilirubin AST ALT Alkaline Phosphatase LD Total Total Protein Albumin Stool Occult Blood 01/15/20 01/15/20 01/15/20 07:24 07:24 10:45 WBC RBC Hgb Hct MCV MCH MCHC RDW Plt Count MPV Absolute Neuts (auto) Neutrophils % Lymphocytes % Monocytes % Eosinophils % Basophils % Nucleated RBC % PT with INR INR PTT (Actin FS) Sodium 145 Potassium 4.2 Chloride 116 H Carbon Dioxide 22 Anion Gap 8 BUN 14.4 Creatinine 1.1 Est GFR (CKD-EPI)AfAm 61.44 Est GFR (CKD-EPI)NonAf 53.01 POC Glucometer Random Glucose 82 Hemoglobin A1c % 6.7 H Uric Acid 5.4 Calcium 8.3 L Phosphorus 4.0 Magnesium 2.4 Iron TIBC Iron Saturation Unsaturated IBC Ferritin Total Bilirubin 0.2 AST 13 L ALT 11 L Alkaline Phosphatase 75 LD Total 239 Total Protein 6.5 Albumin 2.9 L Stool Occult Blood Negative 01/15/20 10:59 WBC RBC Hgb Hct MCV MCH MCHC RDW Plt Count MPV Absolute Neuts (auto) Neutrophils % Lymphocytes % Monocytes % Eosinophils % Basophils % Nucleated RBC % PT with INR INR PTT (Actin FS) Sodium Potassium Chloride Carbon Dioxide Anion Gap BUN Creatinine Est GFR (CKD-EPI)AfAm Est GFR (CKD-EPI)NonAf POC Glucometer 83 Random Glucose Hemoglobin A1c % Uric Acid Calcium Phosphorus Magnesium Iron TIBC Iron Saturation Unsaturated IBC Ferritin Total Bilirubin AST ALT Alkaline Phosphatase LD Total Total Protein Albumin Stool Occult Blood Imaging - Results Chest X-ray: Report Reviewed, Image Reviewed Cat Scan: Report Reviewed, Image Reviewed Problem List - Problems (1) Dizziness Code(s): R42 - DIZZINESS AND GIDDINESS (2) Metastatic cancer Code(s): C79.9 - SECONDARY MALIGNANT NEOPLASM OF UNSPECIFIED SITE Qualifiers: Area of secondary neoplastic involvement: other site Qualified Code(s): C79.89 - Secondary malignant neoplasm of other specified sites (3) Squamous cell carcinoma of lung Code(s): C34.90 - MALIGNANT NEOPLASM OF UNSP PART OF UNSP BRONCHUS OR LUNG Qualifiers: Laterality: unspecified laterality Qualified Code(s): C34.90 - Malignant neoplasm of unspecified part of unspecified bronchus or lung (4) Asthma Code(s): J45.909 - UNSPECIFIED ASTHMA, UNCOMPLICATED Qualifiers: Asthma severity: mild intermittent Asthma complication type: with status asthmaticus Qualified Code(s): J45.22 - Mild intermittent asthma with status asthmaticus (5) Drug-induced mood disorder Code(s): F19.94 - OTH PSYCHOACTIVE SUBSTANCE USE, UNSP W MOOD DISORDER (6) GERD (gastroesophageal reflux disease) Code(s): K21.9 - GASTRO-ESOPHAGEAL REFLUX DISEASE WITHOUT ESOPHAGITIS Qualifiers: Esophagitis presence: without esophagitis Qualified Code(s): K21.9 - Gastro-esophageal reflux disease without esophagitis (7) Hyperlipidemia associated with type 2 diabetes mellitus Code(s): E11.69 - TYPE 2 DIABETES MELLITUS WITH OTHER SPECIFIED COMPLICATION; E78.5 - HYPERLIPIDEMIA, UNSPECIFIED (8) Mass of right lung Code(s): R91.8 - OTHER NONSPECIFIC ABNORMAL FINDING OF LUNG FIELD (9) Nicotine dependence Code(s): F17.200 - NICOTINE DEPENDENCE, UNSPECIFIED, UNCOMPLICATED Qualifiers: Nicotine product type: cigarettes Substance use status: in withdrawal Qualified Code(s): F17.213 - Nicotine dependence, cigarettes, with withdrawal (10) Cocaine dependence, uncomplicated Code(s): F14.20 - COCAINE DEPENDENCE, UNCOMPLICATED (11) Anxiety and depression Code(s): F41.9 - ANXIETY DISORDER, UNSPECIFIED; F32.9 - MAJOR DEPRESSIVE DISORDER, SINGLE EPISODE, UNSPECIFIED Assessment/Plan IMP: No evidence of PNA or infection PLAN: Avoid hypovolemia. Monitor off ABX Supplemental O2 as needed BD TX PRN No clear indication for systemic steroids VTE prophylaxis GI workup ongoing Dr Patterson Problem List - Problems (1) Dizziness Code(s): R42 - DIZZINESS AND GIDDINESS (2) Metastatic cancer Code(s): C79.9 - SECONDARY MALIGNANT NEOPLASM OF UNSPECIFIED SITE Qualifiers: Area of secondary neoplastic involvement: other site Qualified Code(s): C79.89 - Secondary malignant neoplasm of other specified sites (3) Squamous cell carcinoma of lung Code(s): C34.90 - MALIGNANT NEOPLASM OF UNSP PART OF UNSP BRONCHUS OR LUNG Qualifiers: Laterality: unspecified laterality Qualified Code(s): C34.90 - Malignant neoplasm of unspecified part of unspecified bronchus or lung (4) Asthma Code(s): J45.909 - UNSPECIFIED ASTHMA, UNCOMPLICATED Qualifiers: Asthma severity: mild intermittent Asthma complication type: with status asthmaticus Qualified Code(s): J45.22 - Mild intermittent asthma with status asthmaticus (5) Drug-induced mood disorder Code(s): F19.94 - OTH PSYCHOACTIVE SUBSTANCE USE, UNSP W MOOD DISORDER (6) GERD (gastroesophageal reflux disease) Code(s): K21.9 - GASTRO-ESOPHAGEAL REFLUX DISEASE WITHOUT ESOPHAGITIS Qualifiers: Esophagitis presence: without esophagitis Qualified Code(s): K21.9 - Gastro-esophageal reflux disease without esophagitis (7) Hyperlipidemia associated with type 2 diabetes mellitus Code(s): E11.69 - TYPE 2 DIABETES MELLITUS WITH OTHER SPECIFIED COMPLICATION; E78.5 - HYPERLIPIDEMIA, UNSPECIFIED (8) Mass of right lung Code(s): R91.8 - OTHER NONSPECIFIC ABNORMAL FINDING OF LUNG FIELD (9) Nicotine dependence Code(s): F17.200 - NICOTINE DEPENDENCE, UNSPECIFIED, UNCOMPLICATED Qualifiers: Nicotine product type: cigarettes Substance use status: in withdrawal Qualified Code(s): F17.213 - Nicotine dependence, cigarettes, with withdrawal (10) Cocaine dependence, uncomplicated Code(s): F14.20 - COCAINE DEPENDENCE, UNCOMPLICATED (11) Anxiety and depression Code(s): F41.9 - ANXIETY DISORDER, UNSPECIFIED; F32.9 - MAJOR DEPRESSIVE DISORDER, SINGLE EPISODE, UNSPECIFIED
--- NOTE | 2020-01-15 14:25 | PN ---
Teaching Attending Note Name of Resident: Dottie Greenwood ATTENDING PHYSICIAN STATEMENT I saw and evaluated the patient. I reviewed the resident's note and discussed the case with the resident. I agree with the resident's findings and plan as documented. SUBJECTIVE: pt seen and examined at bedside, not in pain OBJECTIVE: Last Vital Signs Temp Pulse Resp BP Pulse Ox 99.4 F 64 20 105/53 L 100 01/15/20 13:54 01/15/20 13:54 01/15/20 13:54 01/15/20 13:54 01/15/20 13:54 GENERAL: Awake, alert, and fully oriented, in no acute distress. HEAD: Normal with no signs of trauma. EYES: Pupils equal, round and reactive to light, sclera anicteric, conjunctiva clear. LUNGS: Breath sounds equal, clear to auscultation bilaterally. No wheezes, and no crackles. No accessory muscle use. HEART: Regular rate and rhythm, normal S1 and S2 ABDOMEN: Soft, RUQ and epigastric tenderness but no rebound tenderness, BS+ MUSCULOSKELETAL: Normal range of motion at all joints. No bony deformities or tenderness. No CVA tenderness. UPPER EXTREMITIES: 2+ pulses, warm, well-perfused. No cyanosis. No clubbing. No peripheral edema. LOWER EXTREMITIES: 2+ pulses, warm, well-perfused. No calf tenderness. No peripheral edema. NEUROLOGICAL: Cranial nerves II-XII intact. Normal speech. CBCD WBC 5.9 K/mm3 (4.0-10.0) 01/15/20 07:24 RBC 2.95 M/mm3 (3.60-5.2) L 01/15/20 07:24 Hgb 7.8 GM/dL (10.7-15.3) L 01/15/20 07:24 Hct 24.9 % (32.4-45.2) L 01/15/20 07:24 MCV 84.5 fl (80-96) 01/15/20 07:24 MCHC 31.2 g/dl (32.0-36.0) L 01/15/20 07:24 RDW 16.8 % (11.6-15.6) H 01/15/20 07:24 Plt Count 165 K/MM3 (134-434) 01/15/20 07:24 MPV 9.3 fl (7.5-11.1) 01/15/20 07:24 CMP Sodium 145 mmol/L (136-145) 01/15/20 07:24 Potassium 4.2 mmol/L (3.5-5.1) 01/15/20 07:24 Chloride 116 mmol/L (98-107) H 01/15/20 07:24 Carbon Dioxide 22 mmol/L (21-32) 01/15/20 07:24 Anion Gap 8 MMOL/L (8-16) 01/15/20 07:24 BUN 14.4 mg/dL (7-18) 01/15/20 07:24 Creatinine 1.1 mg/dL (0.55-1.3) 01/15/20 07:24 Calcium 8.3 mg/dL (8.5-10.1) L 01/15/20 07:24 Total Bilirubin 0.2 mg/dL (0.2-1) 01/15/20 07:24 AST 13 U/L (15-37) L 01/15/20 07:24 ALT 11 U/L (13-61) L 01/15/20 07:24 Alkaline Phosphatase 75 U/L (45-117) 01/15/20 07:24 Total Protein 6.5 g/dl (6.4-8.2) 01/15/20 07:24 Albumin 2.9 g/dl (3.4-5.0) L 01/15/20 07:24 ASSESSMENT AND PLAN: 64 year old woman with a PMH of Tobacco use, NIDDM, HTN, HLD, Anxiety, Remote heroin and cocaine abuse, Lumbar arthritis, GERD, Opiate dependence, Depression and 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
[2020-01-15] MEDS: DEXTROSE 5%-NORMAL SALINE 1,000 ML IV SCH (15:02)
--- NOTE | 2020-01-15 15:42 | PN ---
Physical Exam: SUBJECTIVE: Patient seen and examined. PAtient reports improvement of abdominal pain, Denies nausea, vomiting, fevers, headache, chest pain, SOB, diarrhea, bloody stools, urinary symptoms. OBJECTIVE: Vital Signs Temperature 99.4 F 01/15/20 13:54 Pulse Rate 64 01/15/20 13:54 Respiratory Rate 01/15/20 13:54 Blood Pressure 105/53 L 01/15/20 13:54 O2 Sat by Pulse Oximetry (%) 100 01/15/20 13:54 GENERAL: The patient is awake, alert, and fully oriented, in no acute distress. NECK: full range of motion, supple. LUNGS: Breath sounds equal, clear to auscultation bilaterally HEART: Regular rate and rhythm, S1, S2 ABDOMEN: Soft, +periumbilical tenderness on deep palpation, nondistended, normoactive bowel sounds EXTREMITIES: 2+ pulses, warm, well-perfused, no edema. NEUROLOGICAL: Cranial nerves II through XII grossly intact. Normal speech PSYCH: Normal mood, normal affect. SKIN: Warm, dry, normal turgor Laboratory Results - last 24 hr 01/14/20 01/14/20 01/14/20 06:45 17:00 17:27 WBC RBC Hgb Hct MCV MCH MCHC RDW Plt Count MPV Absolute Neuts (auto) Neutrophils % Lymphocytes % Monocytes % Eosinophils % Basophils % Nucleated RBC % PT with INR 12.80 INR 1.08 PTT (Actin FS) 37.3 H Sodium 140 Potassium 3.9 Chloride 107 Carbon Dioxide 26 Anion Gap 8 BUN 13.9 Creatinine 1.3 Est GFR (CKD-EPI)AfAm 50.21 Est GFR (CKD-EPI)NonAf 43.32 POC Glucometer 102 Random Glucose 91 Hemoglobin A1c % Uric Acid Calcium 9.5 Phosphorus 4.5 Magnesium 2.4 Iron 30 L TIBC 250 Iron Saturation 12 L Unsaturated IBC 220 Ferritin 65.4 Total Bilirubin 0.3 AST 17 ALT 12 L Alkaline Phosphatase 85 LD Total Total Protein 7.6 Albumin 3.5 Stool Occult Blood 01/14/20 01/15/20 01/15/20 21:29 06:25 07:24 WBC 5.9 RBC 2.95 L Hgb 7.8 L Hct 24.9 L MCV 84.5 MCH 26.4 MCHC 31.2 L RDW 16.8 H Plt Count 165 MPV 9.3 Absolute Neuts (auto) 3.8 Neutrophils % 65.0 Lymphocytes % 25.2 Monocytes % 8.4 Eosinophils % 0.8 Basophils % 0.6 Nucleated RBC % 0 PT with INR INR PTT (Actin FS) Sodium Potassium Chloride Carbon Dioxide Anion Gap BUN Creatinine Est GFR (CKD-EPI)AfAm Est GFR (CKD-EPI)NonAf POC Glucometer 134 87 Random Glucose Hemoglobin A1c % Uric Acid Calcium Phosphorus Magnesium Iron TIBC Iron Saturation Unsaturated IBC Ferritin Total Bilirubin AST ALT Alkaline Phosphatase LD Total Total Protein Albumin Stool Occult Blood 01/15/20 01/15/20 01/15/20 07:24 07:24 10:45 WBC RBC Hgb Hct MCV MCH MCHC RDW Plt Count MPV Absolute Neuts (auto) Neutrophils % Lymphocytes % Monocytes % Eosinophils % Basophils % Nucleated RBC % PT with INR INR PTT (Actin FS) Sodium 145 Potassium 4.2 Chloride 116 H Carbon Dioxide 22 Anion Gap 8 BUN 14.4 Creatinine 1.1 Est GFR (CKD-EPI)AfAm 61.44 Est GFR (CKD-EPI)NonAf 53.01 POC Glucometer Random Glucose 82 Hemoglobin A1c % 6.7 H Uric Acid 5.4 Calcium 8.3 L Phosphorus 4.0 Magnesium 2.4 Iron TIBC Iron Saturation Unsaturated IBC Ferritin Total Bilirubin 0.2 AST 13 L ALT 11 L Alkaline Phosphatase 75 LD Total 239 Total Protein 6.5 Albumin 2.9 L Stool Occult Blood Negative 01/15/20 10:59 WBC RBC Hgb Hct MCV MCH MCHC RDW Plt Count MPV Absolute Neuts (auto) Neutrophils % Lymphocytes % Monocytes % Eosinophils % Basophils % Nucleated RBC % PT with INR INR PTT (Actin FS) Sodium Potassium Chloride Carbon Dioxide Anion Gap BUN Creatinine Est GFR (CKD-EPI)AfAm Est GFR (CKD-EPI)NonAf POC Glucometer 83 Random Glucose Hemoglobin A1c % Uric Acid Calcium Phosphorus Magnesium Iron TIBC Iron Saturation Unsaturated IBC Ferritin Total Bilirubin AST ALT Alkaline Phosphatase LD Total Total Protein Albumin Stool Occult Blood Active Medications Generic Name Dose Route Start Last Admin Trade Name Freq PRN Reason Stop Dose Admin Buspirone HCl 10 mg 01/14/20 22:00 01/15/20 09:24 Buspar - PO 10 mg BID FABIANA Administration Docusate Sodium 100 mg 01/14/20 17:34 01/15/20 09:25 Colace - PO 100 mg BID PRN Administration CONSTIPATION Ezetimibe 10 mg 01/14/20 10:00 01/15/20 09:24 Zetia - PO 10 mg DAILY FABIANA Administration Iron Sucrose 200 mg/ Sodium 100 mls @ 100 mls/hr 01/15/20 11:00 01/15/20 11:52 Chloride IVPB 01/23/20 11:59 100 mls/hr Q48H FABIANA Administration Dextrose/Sodium Chloride 1,000 mls @ 75 mls/hr 01/15/20 13:15 01/15/20 15:02 D5-Ns - IV 75 mls/hr ASDIR FABIANA Administration Insulin Aspart 1 vial 01/14/20 07:00 01/15/20 11:02 Novolog Vial Sliding Scale - SQ Not Given ACHS FABIANA Protocol Morphine Sulfate 2 mg 01/14/20 17:33 01/14/20 19:52 Morphine Sulfate IVPUSH 2 mg Q6H PRN Administration PAIN LEVEL 7 - 10 Nicotine 14 mg 01/14/20 10:00 01/15/20 09:24 Nicoderm Patch - TD 14 mg DAILY FABIANA Administration Pantoprazole Sodium 40 mg 01/14/20 10:00 01/15/20 09:24 Protonix Iv IVPUSH 40 mg DAILY FABIANA Administration Pregabalin 100 mg 01/14/20 06:00 01/15/20 13:29 Lyrica - PO 100 mg TID FABIANA Administration Senna 1 tab 01/14/20 22:00 01/14/20 21:30 Senna - PO 1 tab HS FABIANA Administration Sertraline HCl 150 mg 01/14/20 22:00 01/14/20 21:31 Zoloft - PO 150 mg HS FABIANA Administration Umeclidinium/Vilanterol 1 puff 01/14/20 10:00 01/15/20 09:24 Anoro Ellipta 62.5-25 Mcg Inh IH 1 puff DAILY FABIANA Administration ASSESSMENT/PLAN: Patient is a 64 year old female with a PMH of 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 #Abdominal pain - Most likely 2/2 to gastric metastasis vs Gastritis - CT Abd: Cholelithiasis with dilated CBD, no obvious obstruction. Possible [id number] mass like area in the gastric body, no definite evidence of addtional metastatic disease within the abdomen/pelvis - MRCP : significant diffuse dilatation of the extrahepatic biliary tree with mild intrahepatic, predominantly central, biliary ductal dilatation with distal sudden cut off but no evidence of fillings defects or focal mass. Nonspecific minimally ectatic pancreatic duct with no gross focal pancreatic abnormality. Questionable thickening of the gastric antrum. - Continue Protonix IV - Clear liquid diet, NPO after midnight - Plan for EGD pending COVID testing - Possible ERCP or EUS, awaiting Dr. Xiong's recs - Gastroenterology (Dr. Richmond) consulted. Recommendations appreciated #R/o Pneumonia - CT chest: RUL mass has increased in size since prior (12/21/2018), now is compressing right ventricle - Does not fit the clinical picture of pneumonia: no WBC, PE CTAB, antibiotics held - f/u with blood, urine, sputum cultures - Legionella urine antigen negative - supplemental Oxygen prn to keep SPO2> 95% - monitor off abx - Pulmonology (Dr. Patterson) following. Recommendations appreciated - Infectious Disease (Dr. Barnett) following. Recommendations appreciated #Hx of Small Cell Lung CA -CT scans very large 10 cm RUL mass invading the mediastinum and rt. atrium. LT. adrenal nodularity. ? gastric mass -May be a candidate for immunotherapy -- pembrolizumab, when discharged as outpatient -will also request rad-onc input -[facility]Onc (Dr. Van) consulted. Recommendations appreciated. #Hyperkalemia - 6.7 on admission, likely hemolysis - K now normal #Asymptomatic bacteriuria - UA analysis: 2+ leuk est w/ wbc 97, bacteria 1497, epithelial cells >30 - Urine culture normal morris - will hold off abx and monitor #Anemia - Very Low iron (30), low-normal TIBC - Hypoproliferation reticulocyte index - Most likely 2/2 malignancy (Anemia of chronic disease) - Monitor CBC #Chronic back pain - Pain management with TYlenol/morphine - will avoid NSAIDs #Asthma - Anoro ellipta 1 puff daily (Home med) #GERD -Pantoprazole 40 mg qd (home med) #DM - ISS - BGM ACHS #Neuropathy - Pregabalin 100 mg TID (Home med) #HLD - Ezetimibe 10 mg QD #Depression/anxiety - Sertraline 150 mg qd, Buspirone 10mg bid (Home med) #HTN - Blood pressure low-normal, continue to monitor - Held home meds #Nicotine dependence (1 PPD) - Active - Nicoderm patch 14 mg QD #FEN - D5-N/S @ 75mls/hr - Continue to monitor electrolytes - Clear liquid diet #DVT PPX: - Lovenox 40 mg held for possible GI procedure in am - SCDs #Disposition - Continue to monitor on [facility] floor. Has communicated interest in resuming chemotherapy and overall medical treatment Visit type - Emergency Visit Emergency Visit: Yes ED Registration Date: 01/13/20 Care time: The patient presented to the Emergency Department on the above date and was hospitalized for further evaluation of their emergent condition. - New Patient This patient is new to me today: No - Critical Care Critical Care patient: No ATTENDING PHYSICIAN STATEMENT I saw and evaluated the patient. I reviewed the resident's note and discussed the case with the resident. I agree with the resident's findings and plan as documented. SUBJECTIVE: OBJECTIVE: ASSESSMENT AND PLAN:
--- NOTE | 2020-01-15 16:16 | PN ---
Physical Exam: SUBJECTIVE: Patient seen and examined. No acute events overnight. Pt. endorses feeling better, denies any abdominal pain when not having belly pressed. Domrjok2n with daughter who stated that PT. had 2 craniotomies as Pt. did not follow up with RT after first surgery and mass grew back. Pt. completed RT after second craniotomy. OBJECTIVE: Vital Signs Period Temp Pulse Resp BP Sys/Ferrer Pulse Ox Last 24 Hr 98.4 F-99.4 F 59-99 20-20 97-123/53-65 98-100 GENERAL: Awake, alert, and oriented, in no acute distress. HEAD: Normal with no signs of trauma. EYES: Sclera anicteric, conjunctiva clear. EARS, NOSE, THROAT: Moist mucous membranes. LUNGS: Breath sounds equal, clear to auscultation bilaterally. No wheezes, and no crackles. No accessory muscle use. HEART: Regular rate and rhythm, normal S1 and S2 with systolic murmur ABDOMEN: Soft, mild periumbilical tenderness to deep palpation, not distended, normoactive bowel sounds LOWER EXTREMITIES: 1+ dorsal pedal pulses, warm, well-perfused. No calf tenderness. No peripheral edema. NEUROLOGICAL: No focal deficits Normal speech. Gait not assessed PSYCHIATRIC: Cooperative. Good eye contact. Appropriate mood and affect. SKIN: Warm, dry, normal turgor Laboratory Results - last 24 hr 01/14/20 01/14/20 01/14/20 06:45 17:00 17:27 WBC RBC Hgb Hct MCV MCH MCHC RDW Plt Count MPV Absolute Neuts (auto) Neutrophils % Lymphocytes % Monocytes % Eosinophils % Basophils % Nucleated RBC % PT with INR 12.80 INR 1.08 PTT (Actin FS) 37.3 H Sodium 140 Potassium 3.9 Chloride 107 Carbon Dioxide 26 Anion Gap 8 BUN 13.9 Creatinine 1.3 Est GFR (CKD-EPI)AfAm 50.21 Est GFR (CKD-EPI)NonAf 43.32 POC Glucometer 102 Random Glucose 91 Hemoglobin A1c % Uric Acid Calcium 9.5 Phosphorus 4.5 Magnesium 2.4 Iron 30 L TIBC 250 Iron Saturation 12 L Unsaturated IBC 220 Ferritin 65.4 Total Bilirubin 0.3 AST 17 ALT 12 L Alkaline Phosphatase 85 LD Total Total Protein 7.6 Albumin 3.5 Stool Occult Blood 01/14/20 01/15/20 01/15/20 21:29 06:25 07:24 WBC 5.9 RBC 2.95 L Hgb 7.8 L Hct 24.9 L MCV 84.5 MCH 26.4 MCHC 31.2 L RDW 16.8 H Plt Count 165 MPV 9.3 Absolute Neuts (auto) 3.8 Neutrophils % 65.0 Lymphocytes % 25.2 Monocytes % 8.4 Eosinophils % 0.8 Basophils % 0.6 Nucleated RBC % 0 PT with INR INR PTT (Actin FS) Sodium Potassium Chloride Carbon Dioxide Anion Gap BUN Creatinine Est GFR (CKD-EPI)AfAm Est GFR (CKD-EPI)NonAf POC Glucometer 134 87 Random Glucose Hemoglobin A1c % Uric Acid Calcium Phosphorus Magnesium Iron TIBC Iron Saturation Unsaturated IBC Ferritin Total Bilirubin AST ALT Alkaline Phosphatase LD Total Total Protein Albumin Stool Occult Blood 01/15/20 01/15/20 01/15/20 07:24 07:24 10:45 WBC RBC Hgb Hct MCV MCH MCHC RDW Plt Count MPV Absolute Neuts (auto) Neutrophils % Lymphocytes % Monocytes % Eosinophils % Basophils % Nucleated RBC % PT with INR INR PTT (Actin FS) Sodium 145 Potassium 4.2 Chloride 116 H Carbon Dioxide 22 Anion Gap 8 BUN 14.4 Creatinine 1.1 Est GFR (CKD-EPI)AfAm 61.44 Est GFR (CKD-EPI)NonAf 53.01 POC Glucometer Random Glucose 82 Hemoglobin A1c % 6.7 H Uric Acid 5.4 Calcium 8.3 L Phosphorus 4.0 Magnesium 2.4 Iron TIBC Iron Saturation Unsaturated IBC Ferritin Total Bilirubin 0.2 AST 13 L ALT 11 L Alkaline Phosphatase 75 LD Total 239 Total Protein 6.5 Albumin 2.9 L Stool Occult Blood Negative 01/15/20 10:59 WBC RBC Hgb Hct MCV MCH MCHC RDW Plt Count MPV Absolute Neuts (auto) Neutrophils % Lymphocytes % Monocytes % Eosinophils % Basophils % Nucleated RBC % PT with INR INR PTT (Actin FS) Sodium Potassium Chloride Carbon Dioxide Anion Gap BUN Creatinine Est GFR (CKD-EPI)AfAm Est GFR (CKD-EPI)NonAf POC Glucometer 83 Random Glucose Hemoglobin A1c % Uric Acid Calcium Phosphorus Magnesium Iron TIBC Iron Saturation Unsaturated IBC Ferritin Total Bilirubin AST ALT Alkaline Phosphatase LD Total Total Protein Albumin Stool Occult Blood Active Medications Generic Name Dose Route Start Last Admin Trade Name Freq PRN Reason Stop Dose Admin Buspirone HCl 10 mg 01/14/20 22:00 01/15/20 09:24 Buspar - PO 10 mg BID FABIANA Administration Docusate Sodium 100 mg 01/14/20 17:34 01/15/20 09:25 Colace - PO 100 mg BID PRN Administration CONSTIPATION Ezetimibe 10 mg 01/14/20 10:00 01/15/20 09:24 Zetia - PO 10 mg DAILY FABIANA Administration Iron Sucrose 200 mg/ Sodium 100 mls @ 100 mls/hr 01/15/20 11:00 01/15/20 11:52 Chloride IVPB 01/23/20 11:59 100 mls/hr Q48H FABIANA Administration Dextrose/Sodium Chloride 1,000 mls @ 75 mls/hr 01/15/20 13:15 01/15/20 15:02 D5-Ns - IV 75 mls/hr ASDIR FABIANA Administration Insulin Aspart 1 vial 01/14/20 07:00 01/15/20 11:02 Novolog Vial Sliding Scale - SQ Not Given ACHS FABIANA Protocol Morphine Sulfate 2 mg 01/14/20 17:33 01/14/20 19:52 Morphine Sulfate IVPUSH 2 mg Q6H PRN Administration PAIN LEVEL 7 - 10 Nicotine 14 mg 01/14/20 10:00 01/15/20 09:24 Nicoderm Patch - TD 14 mg DAILY FABIANA Administration Pantoprazole Sodium 40 mg 01/14/20 10:00 01/15/20 09:24 Protonix Iv IVPUSH 40 mg DAILY FABIANA Administration Pregabalin 100 mg 01/14/20 06:00 01/15/20 13:29 Lyrica - PO 100 mg TID FABIANA Administration Senna 1 tab 01/14/20 22:00 01/14/20 21:30 Senna - PO 1 tab HS FABIANA Administration Sertraline HCl 150 mg 01/14/20 22:00 01/14/20 21:31 Zoloft - PO 150 mg HS FABIANA Administration Umeclidinium/Vilanterol 1 puff 01/14/20 10:00 01/15/20 09:24 Anoro Ellipta 62.5-25 Mcg Inh IH 1 puff DAILY FABIANA Administration ASSESSMENT/PLAN: Pt. is a 64 y.o. F w/ PMHx. of HLD, Depression, PolySubstance Abuse(Cocaine and Heroin-IV) and Metastatic SCLC (s/p Etoposide/Carboplatin x2- last in May2019; s/p Lung resection, s/p L. posterior craniotomy x2, s/p whole brain RT-completed in 2019) presents for abdominal pain. #Metastatic Small Cell Lung Cancer Pt. has recurrence of Lung CA with progression despite two treatment periods of carboplatin and etoposide. Ideally as outpatient Pt. would receive immunotherapy as systemic treatment. As inpatient we will begin work up for systemic therapy. f/u Physical Therapy and Social Work for coordination. Ideally Pt. will be sent home with VNS and PT however if Pt. requires rehab will need alternative chemotherapy as systemic therapy. LDH and Uric Acid unremarkable, will continue to monitor HgB decreased to 7.8 to day, normal transfusion threshold Iron studies noted, ID consult appreciated and noted, will start IV Iron QOD x 5 treatments noticed systolic murmur today, would avoid hypovolemia in setting of lung mass that is compressing R. [facility] consult appreciated for assessment of gastric mass for EGD pending COVID result Visit type - Emergency Visit Emergency Visit: Yes ED Registration Date: 01/13/20 Care time: The patient presented to the Emergency Department on the above date and was hospitalized for further evaluation of their emergent condition. - New Patient This patient is new to me today: No - Critical Care Critical Care patient: No - Discharge Referral Referred to [facility] Med [facility].: No ATTENDING PHYSICIAN STATEMENT I saw and evaluated the patient. I reviewed the resident's note and discussed the case with the resident. I agree with the resident's findings and plan as documented. SUBJECTIVE: OBJECTIVE: ASSESSMENT AND PLAN:
--- NOTE | 2020-01-15 16:47 | PN ---
Teaching Attending Note Name of Resident: Rory Birmingham ATTENDING PHYSICIAN STATEMENT I saw and evaluated the patient. I reviewed the resident's note and discussed the case with the resident. I agree with the resident's findings and plan as documented. SUBJECTIVE: Doing well. No complaints. ASSESSMENT AND PLAN: 64 y/o lady w/ PMHx. of HLD, Depression, PolySubstance Abuse(Cocaine and Heroin-IV) and Metastatic SCLC (s/p Etoposide/Carboplatin x2- last in May2019; s/p Lung resection, s/p L. posterior craniotomy x2, s/p whole brain RT-completed in 2018) presents for abdominal pain. Recommend: 1) Relapsing SCLC s/p Carbo/EtoposideX2. Possible immunotherapy in the future 2) Gastric Mass. [facility] consult. EGD in AM
--- NOTE | 2020-01-15 17:14 | PN ---
Progress Note (short form) - Note Progress Note: remains afebrile, alrt less abdominal discomfort MRCP-diffuse dilatation of the extrahepatic biliary treee, no cholycystitis, questionable thickening of the gastric wall Vital Signs Period Temp Pulse Resp BP Sys/Ferrer Pulse Ox Last 24 Hr 98.4 F-99.4 F 59-99 - 97-123/53-65 98-100 cor-rrr lungs clear abd soft,nt ext no edema CBC, BMP 01/15/20 07:24 01/15/20 07:24 Microbiology 01/13/20 18:45 Urine - Urine Clean Catch Urine Culture - Final Normal Urogenital Nelida 01/13/20 06:45 Blood - Peripheral Venous Blood Culture - Preliminary NO GROWTH OBTAINED AFTER 24 HOURS, INCUBATION TO CONTINUE FOR 4 DAYS. 01/13/20 06:55 Blood - Peripheral Venous Blood Culture - Preliminary NO GROWTH OBTAINED AFTER 24 HOURS, INCUBATION TO CONTINUE FOR 4 DAYS. 01/14/20 11:30 Urine For Antigen Detection Legionella Antigen - Final 01/14/20 11:30 Urine For Antigen Detection Streptococcus pneumoniae Antigen (M - Final imp/reccd metastatic lung cancer chronic cbd dilatation- no fevers, leukocytosis to suggest biliary sepsis- per GI management per GI and oncology stable off antiibotics, please call back if needed
[2020-01-15] MEDS ORDERED: MELATONIN 5 MG TABLETS PO ONE (20:03)
[2020-01-15] MEDS: SENNOSIDES 8.6MG TABLET (FP) PO SCH (21:07)
[2020-01-15] MEDS: SERTRALINE HCL 50 MG TABLET (FP) PO SCH (21:08)
[2020-01-16] MEDS: PREGABALIN 100 MG CAPSULE PO SCH ×3 (06:04→21:11)
[2020-01-16] MEDS: INSULIN SLIDING SCALE (NOVOLOG) 1 VIAL SQ SCH ×4 (06:12→21:12)
[2020-01-16] MEDS: DEXTROSE 5%-NORMAL SALINE 1,000 ML IV SCH ×2 (06:12→14:02)
[2020-01-16 08:20] LABS: BASO % 0.7 % (0-2.0); EOS % 0.8 % (0-4.5); HEMATOCRIT 25.5 % (32.4-45.2); LYMPH % 22.9 % (8-40); MCH 26.3 pg (25.7-33.7); MCHC 31.3 g/dl (32.0-36.0); MEAN CELL VOLUME 83.9 fl (80-96); MEAN PLT VOLUME 9.4 fl (7.5-11.1); MONO % 8.3 % (3.8-10.2); NEUT % 67.3 % (42.8-82.8); PLATELET COUNT 161 K/MM3 (134-434); RBC 3.04 M/mm3 (3.60-5.2); RDW 16.9 % (11.6-15.6); WHITE BLOOD COUNT 5.4 K/mm3 (4.0-10.0)
[2020-01-16 08:54] LABS: ALBUMIN 3.1 g/dl (3.4-5.0); BILIRUBIN,TOTAL 0.5 mg/dL (0.2-1); BLOOD UREA NITROGEN 8.6 mg/dL (7-18); CALCIUM 8.6 mg/dL (8.5-10.1); CREATININE 0.9 mg/dL (0.55-1.3); MAGNESIUM 2.3 mg/dL (1.8-2.4); PHOSPHOROUS 3.5 mg/dL (2.5-4.9); TOT PROT 6.8 g/dl (6.4-8.2)
[2020-01-16] MEDS: UMECLIDINIUM/VILANTEROL (ANORO) 62.5/25 MCG INHALER IH SCH (09:39)
[2020-01-16] MEDS: EZETIMIBE 10 MG TABLET (FP) PO SCH (09:39)
[2020-01-16] MEDS: PANTOPRAZOLE SODIUM 40 MG VIAL IVPUSH SCH (09:39)
[2020-01-16] MEDS: NICOTINE 14 MG/24 HOURS TOPICAL PATCH TD SCH (09:39)
[2020-01-16] MEDS: busPIRone HCL 10 MG TABLET (FP) PO SCH ×2 (09:39→21:11)
--- NOTE | 2020-01-16 10:19 | PN ---
Progress Note, Physician History of Present Illness: PULMONARY ALERT,COMFORTABLE,-RESP DISTRESS - Current Medication List Current Medications: Active Medications Buspirone HCl (Buspar -) 10 mg PO BID [facility] Last Admin: 01/16/20 09:39 Dose: 10 mg Documented by: Docusate Sodium (Colace -) 100 mg PO BID PRN PRN Reason: CONSTIPATION Last Admin: 01/15/20 09:25 Dose: 100 mg Documented by: Ezetimibe (Zetia -) 10 mg PO DAILY [facility] Last Admin: 01/16/20 09:39 Dose: 10 mg Documented by: Iron Sucrose 200 mg/ Sodium (Chloride) 100 mls @ 100 mls/hr IVPB Q48H [facility] Stop: 01/23/20 11:59 Last Admin: 01/15/20 11:52 Dose: 100 mls/hr Documented by: Dextrose/Sodium Chloride (D5-Ns -) 1,000 mls @ 75 mls/hr IV ASDIR [facility] Last Admin: 01/16/20 06:12 Dose: 75 mls/hr Documented by: Insulin Aspart (Novolog Vial Sliding Scale -) [address] [facility]; Protocol Last Admin: 01/16/20 06:12 Dose: Not Given Documented by: Morphine Sulfate (Morphine Sulfate) 2 mg IVPUSH Q6H PRN PRN Reason: PAIN LEVEL 7 - 10 Last Admin: 01/14/20 19:52 Dose: 2 mg Documented by: Nicotine (Nicoderm Patch -) 14 mg TD DAILY [facility] Last Admin: 01/16/20 09:39 Dose: 14 mg Documented by: Pantoprazole Sodium (Protonix Iv) 40 mg IVPUSH DAILY [facility] Last Admin: 01/16/20 09:39 Dose: 40 mg Documented by: Pregabalin (Lyrica -) 100 mg PO TID [facility] Last Admin: 01/16/20 06:04 Dose: 100 mg Documented by: Senna (Senna -) 1 tab PO [facility] Last Admin: 01/15/20 21:07 Dose: 1 tab Documented by: Sertraline HCl (Zoloft -) 150 mg PO [facility] Last Admin: 01/15/20 21:08 Dose: 150 mg Documented by: Umeclidinium/Vilanterol (Anoro Ellipta 62.5-25 Mcg Inh) 1 puff IH DAILY [facility] Last Admin: 01/16/20 09:39 Dose: 1 puff Documented by: - Objective Vital Signs: Vital Signs Temperature 99.5 F 01/16/20 09:55 Pulse Rate 69 01/16/20 09:55 Respiratory Rate 20 01/16/20 09:55 Blood Pressure 110/50 L 01/16/20 09:55 O2 Sat by Pulse Oximetry (%) 100 01/16/20 09:55 Constitutional: Yes: Well Nourished, Calm Eyes: Yes: WNL HENT: Yes: WNL Neck: Yes: WNL Cardiovascular: Yes: Regular Rate and Rhythm, S1, S2 Respiratory: Yes: Diminished Gastrointestinal: Yes: Normal Bowel Sounds, Soft Extremities: Yes: WNL Edema: No Labs: CBC, BMP 01/16/20 08:04 01/16/20 08:04 INR, PTT INR 1.08 (0.83-1.09) 01/14/20 17:27 Assessment/Plan Problem List - Problems (1) Dizziness Code(s): R42 - DIZZINESS AND GIDDINESS (2) Metastatic cancer Code(s): C79.9 - SECONDARY MALIGNANT NEOPLASM OF UNSPECIFIED SITE Qualifiers: Area of secondary neoplastic involvement: other site Qualified Code(s): C79.89 - Secondary malignant neoplasm of other specified sites (3) Squamous cell carcinoma of lung Code(s): C34.90 - MALIGNANT NEOPLASM OF UNSP PART OF UNSP BRONCHUS OR LUNG Qualifiers: Laterality: unspecified laterality Qualified Code(s): C34.90 - Malignant neoplasm of unspecified part of unspecified bronchus or lung (4) Asthma Code(s): J45.909 - UNSPECIFIED ASTHMA, UNCOMPLICATED Qualifiers: Asthma severity: mild intermittent Asthma complication type: with status asthmaticus Qualified Code(s): J45.22 - Mild intermittent asthma with status asthmaticus (5) Drug-induced mood disorder Code(s): F19.94 - OTH PSYCHOACTIVE SUBSTANCE USE, UNSP W MOOD DISORDER (6) GERD (gastroesophageal reflux disease) Code(s): K21.9 - GASTRO-ESOPHAGEAL REFLUX DISEASE WITHOUT ESOPHAGITIS Qualifiers: Esophagitis presence: without esophagitis Qualified Code(s): K21.9 - Gastro-esophageal reflux disease without esophagitis (7) Hyperlipidemia associated with type 2 diabetes mellitus Code(s): E11.69 - TYPE 2 DIABETES MELLITUS WITH OTHER SPECIFIED COMPLICATION; E78.5 - HYPERLIPIDEMIA, UNSPECIFIED (8) Mass of right lung Code(s): R91.8 - OTHER NONSPECIFIC ABNORMAL FINDING OF LUNG FIELD (9) Nicotine dependence Code(s): F17.200 - NICOTINE DEPENDENCE, UNSPECIFIED, UNCOMPLICATED Qualifiers: Nicotine product type: cigarettes Substance use status: in withdrawal Qualified Code(s): F17.213 - Nicotine dependence, cigarettes, with withdrawal (10) Cocaine dependence, uncomplicated Code(s): F14.20 - COCAINE DEPENDENCE, UNCOMPLICATED (11) Anxiety and depression Code(s): F41.9 - ANXIETY DISORDER, UNSPECIFIED; F32.9 - MAJOR DEPRESSIVE DISORDER, SINGLE EPISODE, UNSPECIFIED Assessment/Plan IMP: No evidence of PNA or infection RUL MASS LUNG CA PLAN: Avoid hypovolemia. Supplemental O2 as needed BD TX PRN No clear indication for systemic steroids VTE prophylaxis GI workup ongoing Dr Moreland Problem List - Problems (1) Dizziness Code(s): R42 - DIZZINESS AND GIDDINESS (2) Metastatic cancer Code(s): C79.9 - SECONDARY MALIGNANT NEOPLASM OF UNSPECIFIED SITE Qualifiers: Area of secondary neoplastic involvement: other site Qualified Code(s): C79.89 - Secondary malignant neoplasm of other specified sites (3) Squamous cell carcinoma of lung Code(s): C34.90 - MALIGNANT NEOPLASM OF UNSP PART OF UNSP BRONCHUS OR LUNG Qualifiers: Laterality: unspecified laterality Qualified Code(s): C34.90 - Malignant neoplasm of unspecified part of unspecified bronchus or lung (4) Asthma Code(s): J45.909 - UNSPECIFIED ASTHMA, UNCOMPLICATED Qualifiers: Asthma severity: mild intermittent Asthma complication type: with status asthmaticus Qualified Code(s): J45.22 - Mild intermittent asthma with status asthmaticus (5) Drug-induced mood disorder Code(s): F19.94 - OTH PSYCHOACTIVE SUBSTANCE USE, UNSP W MOOD DISORDER (6) GERD (gastroesophageal reflux disease) Code(s): K21.9 - GASTRO-ESOPHAGEAL REFLUX DISEASE WITHOUT ESOPHAGITIS Qualifiers: Esophagitis presence: without esophagitis Qualified Code(s): K21.9 - Gas tro-esophageal reflux disease without esophagitis (7) Hyperlipidemia associated with type 2 diabetes mellitus Code(s): E11.69 - TYPE 2 DIABETES MELLITUS WITH OTHER SPECIFIED COMPLICATION; E78.5 - HYPERLIPIDEMIA, UNSPECIFIED (8) Mass of right lung Code(s): R91.8 - OTHER NONSPECIFIC ABNORMAL FINDING OF LUNG FIELD (9) Nicotine dependence Code(s): F17.200 - NICOTINE DEPENDENCE, UNSPECIFIED, UNCOMPLICATED Qualifiers: Nicotine product type: cigarettes Substance use status: in withdrawal Qualified Code(s): F17.213 - Nicotine dependence, cigarettes, with withdrawal (10) Cocaine dependence, uncomplicated Code(s): F14.20 - COCAINE DEPENDENCE, UNCOMPLICATED (11) Anxiety and depression Code(s): F41.9 - ANXIETY DISORDER, UNSPECIFIED; F32.9 - MAJOR DEPRESSIVE DISORDER, SINGLE EPISODE, UNSPECIFIED
--- NOTE | 2020-01-16 12:12 | PN ---
Teaching Attending Note Name of Resident: Dottie Greenwood ATTENDING PHYSICIAN STATEMENT I saw and evaluated the patient. I reviewed the resident's note and discussed the case with the resident. I agree with the resident's findings and plan as documented. SUBJECTIVE: pt seen and examined at bedside, reporting improvement of pain, awaiting EGD OBJECTIVE: Last Vital Signs Temp Pulse Resp BP Pulse Ox 99.5 F 69 20 110/50 L 100 01/16/20 09:55 01/16/20 09:55 01/16/20 09:55 01/16/20 09:55 01/16/20 09:55 GENERAL: Awake, alert, and fully oriented, in no acute distress. HEAD: Normal with no signs of trauma. EYES: Pupils equal, round and reactive to light, sclera anicteric, conjunctiva clear. LUNGS: Breath sounds equal, clear to auscultation bilaterally. No wheezes, and no crackles. No accessory muscle use. HEART: Regular rate and rhythm, normal S1 and S2 ABDOMEN: Soft, periumbilical and epigastric tenderness but no rebound tenderness, BS+ MUSCULOSKELETAL: Normal range of motion at all joints. No bony deformities or tenderness. No CVA tenderness. UPPER EXTREMITIES: 2+ pulses, warm, well-perfused. No cyanosis. No clubbing. No peripheral edema. LOWER EXTREMITIES: 2+ pulses, warm, well-perfused. No calf tenderness. No peripheral edema. NEUROLOGICAL: Cranial nerves II-XII intact. Normal speech. CBCD WBC 5.4 K/mm3 (4.0-10.0) 01/16/20 08:04 RBC 3.04 M/mm3 (3.60-5.2) L 01/16/20 08:04 Hgb 8.0 GM/dL (10.7-15.3) L 01/16/20 08:04 Hct 25.5 % (32.4-45.2) L 01/16/20 08:04 MCV 83.9 fl (80-96) 01/16/20 08:04 MCHC 31.3 g/dl (32.0-36.0) L 01/16/20 08:04 RDW 16.9 % (11.6-15.6) H 01/16/20 08:04 Plt Count 161 K/MM3 (134-434) 01/16/20 08:04 MPV 9.4 fl (7.5-11.1) 01/16/20 08:04 CMP Sodium 145 mmol/L (136-145) 01/16/20 08:04 Potassium 4.0 mmol/L (3.5-5.1) 01/16/20 08:04 Chloride 116 mmol/L (98-107) H 01/16/20 08:04 Carbon Dioxide 21 mmol/L (21-32) 01/16/20 08:04 Anion Gap 9 MMOL/L (8-16) 01/16/20 08:04 BUN 8.6 mg/dL (7-18) 01/16/20 08:04 Creatinine 0.9 mg/dL (0.55-1.3) 01/16/20 08:04 Calcium 8.6 mg/dL (8.5-10.1) 01/16/20 08:04 Total Bilirubin 0.5 mg/dL (0.2-1) 01/16/20 08:04 AST 17 U/L (15-37) 01/16/20 08:04 ALT 11 U/L (13-61) L 01/16/20 08:04 Alkaline Phosphatase 77 U/L (45-117) 01/16/20 08:04 Total Protein 6.8 g/dl (6.4-8.2) 01/16/20 08:04 Albumin 3.1 g/dl (3.4-5.0) L 01/16/20 08:04 ASSESSMENT AND PLAN: 64 year old woman with a PMH of Tobacco use, NIDDM, HTN, HLD, Anxiety, Remote heroin and cocaine abuse, Lumbar arthritis, GERD, Opiate dependence, Depression and 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
--- NOTE | 2020-01-16 15:21 | PN ---
Progress Note (short form) - Note Progress Note: BRIEF EGD NOTE EGD FINDINGS: ERYTHEMATOUS GASTROPATHY / HIATUS HERNIA NO EVIDENCE OF MASS LESION REC: ADVANCE DIET PPI F/U PATHOLOGY
--- NOTE | 2020-01-16 15:40 | PN ---
Physical Exam: SUBJECTIVE: Patient seen and examined OBJECTIVE: Vital Signs Temperature 98.4 F 01/16/20 15:05 Pulse Rate 62 01/16/20 15:20 Respiratory Rate 118 H 01/16/20 15:20 Blood Pressure 122/61 01/16/20 15:20 O2 Sat by Pulse Oximetry (%) 100 01/16/20 15:20 GENERAL: The patient is awake, alert, and fully oriented, in no acute distress. NECK: full range of motion, supple. LUNGS: Breath sounds equal, clear to auscultation bilaterally HEART: Regular rate and rhythm, S1, S2 ABDOMEN: Soft, +periumbilical tenderness on deep palpation, nondistended, normoactive bowel sounds EXTREMITIES: 2+ pulses, warm, well-perfused, no edema. NEUROLOGICAL: Cranial nerves II through XII grossly intact. Normal speech PSYCH: Normal mood, normal affect. SKIN: Warm, dry, normal turgor Laboratory Results - last 24 hr 01/13/20 01/15/20 01/15/20 15:30 16:57 21:06 WBC RBC Hgb Hct MCV MCH MCHC RDW Plt Count MPV Absolute Neuts (auto) Neutrophils % Lymphocytes % Monocytes % Eosinophils % Basophils % Nucleated RBC % Sodium Potassium Chloride Carbon Dioxide Anion Gap BUN Creatinine Est GFR (CKD-EPI)AfAm Est GFR (CKD-EPI)NonAf POC Glucometer 92 90 Random Glucose Calcium Phosphorus Magnesium Total Bilirubin AST ALT Alkaline Phosphatase Total Protein Albumin COVID-19 ([facility]IN) Not detected 01/16/20 01/16/20 01/16/20 06:06 08:04 08:04 WBC 5.4 RBC 3.04 L Hgb 8.0 L Hct 25.5 L MCV 83.9 MCH 26.3 MCHC 31.3 L RDW 16.9 H Plt Count 161 MPV 9.4 Absolute Neuts (auto) 3.6 Neutrophils % 67.3 Lymphocytes % 22.9 Monocytes % 8.3 Eosinophils % 0.8 Basophils % 0.7 Nucleated RBC % 0 Sodium 145 Potassium 4.0 Chloride 116 H Carbon Dioxide 21 Anion Gap 9 BUN 8.6 Creatinine 0.9 Est GFR (CKD-EPI)AfAm 78.32 Est GFR (CKD-EPI)NonAf 67.57 POC Glucometer 86 Random Glucose 92 Calcium 8.6 Phosphorus 3.5 Magnesium 2.3 Total Bilirubin 0.5 AST 17 ALT 11 L Alkaline Phosphatase 77 Total Protein 6.8 Albumin 3.1 L COVID-19 ([facility]IN) 01/16/20 11:18 WBC RBC Hgb Hct MCV MCH MCHC RDW Plt Count MPV Absolute Neuts (auto) Neutrophils % Lymphocytes % Monocytes % Eosinophils % Basophils % Nucleated RBC % Sodium Potassium Chloride Carbon Dioxide Anion Gap BUN Creatinine Est GFR (CKD-EPI)AfAm Est GFR (CKD-EPI)NonAf POC Glucometer 84 Random Glucose Calcium Phosphorus Magnesium Total Bilirubin AST ALT Alkaline Phosphatase Total Protein Albumin COVID-19 ([facility]IN) Active Medications Generic Name Dose Route Start Last Admin Trade Name Freq PRN Reason Stop Dose Admin Buspirone HCl 10 mg 01/14/20 22:00 01/16/20 09:39 Buspar - PO 10 mg BID [facility] Administration Docusate Sodium 100 mg 01/14/20 17:34 01/15/20 09:25 Colace - PO 100 mg BID PRN Administration CONSTIPATION Ezetimibe 10 mg 01/14/20 10:00 01/16/20 09:39 Zetia - PO 10 mg DAILY [facility] Administration Iron Sucrose 200 mg/ Sodium 100 mls @ 100 mls/hr 01/15/20 11:00 01/15/20 11:52 Chloride IVPB 01/23/20 11:59 100 mls/hr Q48H [facility] Administration Dextrose/Sodium Chloride 1,000 mls @ 75 mls/hr 01/15/20 13:15 01/16/20 14:02 D5-Ns - IV Not Given ASDIR [facility] Insulin Aspart 1 vial 01/14/20 07:00 01/16/20 11:19 Novolog Vial Sliding Scale - SQ Not Given ACHS [facility] Protocol Morphine Sulfate 2 mg 01/14/20 17:33 01/14/20 19:52 Morphine Sulfate IVPUSH 2 mg Q6H PRN Administration PAIN LEVEL 7 - 10 Nicotine 14 mg 01/14/20 10:00 01/16/20 09:39 Nicoderm Patch - TD 14 mg DAILY [facility] Administration Pantoprazole Sodium 40 mg 01/14/20 10:00 01/16/20 09:39 Protonix Iv IVPUSH 40 mg DAILY [facility] Administration Pregabalin 100 mg 01/14/20 06:00 01/16/20 14:02 Lyrica - PO 100 mg TID [facility] Administration Senna 1 tab 01/14/20 22:00 01/15/20 21:07 Senna - PO 1 tab HS [facility] Administration Sertraline HCl 150 mg 01/14/20 22:00 01/15/20 21:08 Zoloft - PO 150 mg HS [facility] Administration Umeclidinium/Vilanterol 1 puff 01/14/20 10:00 01/16/20 09:39 Anoro Ellipta 62.5-25 Mcg Inh IH 1 puff DAILY [facility] Administration ASSESSMENT/PLAN: Patient is a 64 year old female with a PMH of 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 #Abdominal pain - Most likely 2/2 to gastric metastasis vs Gastritis - CT Abd: Cholelithiasis with dilated CBD, no obvious obstruction. Possible [id number] mass like area in the gastric body, no definite evidence of addtional metastatic disease within the abdomen/pelvis - MRCP : significant diffuse dilatation of the extrahepatic biliary tree with mild intrahepatic, predominantly central, biliary ductal dilatation with distal sudden cut off but no evidence of fillings defects or focal mass. Nonspecific minimally ectatic pancreatic duct with no gross focal pancreatic abnormality. Questionable thickening of the gastric antrum. - EGD done - erythematous gastropathy/hiatus hernia, no evidence of mass lesion - continue PPI - may advance diet as tolerated - to follow up pathology report - Possible ERCP or EUS, awaiting Dr. Xiong's recs - Gastroenterology (Dr. Richmond) consulted. Recommendations appreciated #Hx of Small Cell Lung CA -Metastatic SCLC s/p lobectomy, s/p brain RT w/ resection -CT scans very large 10 cm RUL mass invading the mediastinum and rt. atrium. LT. adrenal nodularity. ? gastric mass -May be a candidate for immunotherapy -- pembrolizumab, when discharged as outpatient -will also request rad-onc input -supplemental Oxygen prn to keep SPO2> 95% -HEme-Onc (Dr. Van) consulted. Recommendations appreciated. -Pulmonology (Dr. Patterson) following. Recommendations appreciated #Hyperkalemia - 6.7 on admission, likely hemolysis - K now normal #Asymptomatic bacteriuria - UA analysis: 2+ leuk est w/ wbc 97, bacteria 1497, epithelial cells >30 - Urine culture normal morris - will hold off abx and monitor - Infectious Disease (Dr. Barnett) following. Recommendations appreciated #Anemia - Very Low iron (30), low-normal TIBC - Most likely 2/2 malignancy (Anemia of chronic disease) - Monitor CBC #Chronic back pain - Pain management with TYlenol/morphine - will avoid NSAIDs #Asthma - Anoro ellipta 1 puff daily (Home med) #GERD -Pantoprazole 40 mg qd (home med) #DM - ISS - BGM ACHS #Neuropathy - Pregabalin 100 mg TID (Home med) #HLD - Ezetimibe 10 mg QD #Depression/anxiety - Sertraline 150 mg qd, Buspirone 10mg bid (Home med) #HTN - Blood pressure low-normal, continue to monitor - Held home meds #Nicotine dependence (1 PPD) - Active - Nicoderm patch 14 mg QD #FEN - D5-N/S @ 75mls/hr - Continue to monitor electrolytes - Regular diet #DVT PPX: - Lovenox 40 mg daily #Disposition - full code - Continue to monitor on [facility] floor. - palliative on board Visit type - Emergency Visit Emergency Visit: Yes ED Registration Date: 01/13/20 Care time: The patient presented to the Emergency Department on the above date and was hospitalized for further evaluation of their emergent condition. - New Patient This patient is new to me today: No - Critical Care Critical Care patient: No ATTENDING PHYSICIAN STATEMENT I saw and evaluated the patient. I reviewed the resident's note and discussed the case with the resident. I agree with the resident's findings and plan as documented. SUBJECTIVE: OBJECTIVE: ASSESSMENT AND PLAN:
[2020-01-16] MEDS: SERTRALINE HCL 50 MG TABLET (FP) PO SCH (21:12)
[2020-01-16] MEDS: SENNOSIDES 8.6MG TABLET (FP) PO SCH (21:12)
[2020-01-16] MEDS ORDERED: MELATONIN 5 MG TABLETS PO ONE (22:15)
--- NOTE | 2020-01-16 22:31 | PN.HO ---
Progress Note (short form) - Note Progress Note: Patient seen and examined Reports that she is better AFVSS Cor: RSR, No murmurs, No gallops Lungs: Clear to P&A Abd: Soft, Normal bowel sounds, No organomegaly Ext:No significant edema Labs/Meds reviewed A/P Ms. Umanzor is a 64 yo woman with hx of SCLC of RUL s/p Carbo/etoposide in 2017, did not return for follow up until December.. 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 Preop staging demonstrated a 5cm RUL mass with mediastinal LAD and likely adrenal mets as well as the 5.2cm left frontoparietal mass w/edema and mass effect. Postop MRI brain demonstrated residual enhancing tumor at the surgical cavity as well as postsurgical changes. Received whole brain RT - 10 days Completed on 02/09/19. completed 5 cx carbo/etoposide 06/14 Lost to f/u Now presents with failure to thrive and epigastric pain. Also reports intermittent hemoptysis CT scans very large 10 cm RUL mass invading the mediastinum and rt. atrium. LT. adrenal nodularity. ? gastric mass EGD --gastritis. OnPPI COVID negative/cultures negative MAy be a candidate for immunotherapy -- pembrolizumab, when dischargedl as outpatient will also request rad-onc input
[2020-01-17] MEDS: PREGABALIN 100 MG CAPSULE PO SCH ×3 (05:48→21:29)
[2020-01-17] MEDS: INSULIN SLIDING SCALE (NOVOLOG) 1 VIAL SQ SCH ×4 (06:18→21:29)
[2020-01-17 08:30] LABS: BASO % 0.5 % (0-2.0); EOS % 0.6 % (0-4.5); HEMATOCRIT 25.6 % (32.4-45.2); HEMOGLOBIN 8.1 GM/dL (10.7-15.3); LYMPH % 20.5 % (8-40); MCHC 31.7 g/dl (32.0-36.0); MEAN CELL VOLUME 85.2 fl (80-96); MEAN PLT VOLUME 9.5 fl (7.5-11.1); MONO % 6.8 % (3.8-10.2); NEUT % 71.6 % (42.8-82.8); PLATELET COUNT 150 K/MM3 (134-434); RDW 16.7 % (11.6-15.6); WHITE BLOOD COUNT 7.2 K/mm3 (4.0-10.0)
[2020-01-17 09:07] LABS: ALBUMIN 3.2 g/dl (3.4-5.0); BILIRUBIN,TOTAL 0.5 mg/dL (0.2-1); BLOOD UREA NITROGEN 14.4 mg/dL (7-18); CALCIUM 8.9 mg/dL (8.5-10.1); MAGNESIUM 2.2 mg/dL (1.8-2.4); PHOSPHOROUS 3.2 mg/dL (2.5-4.9); POTASSIUM 3.9 mmol/L (3.5-5.1)
[2020-01-17] MEDS: busPIRone HCL 10 MG TABLET (FP) PO SCH ×2 (09:13→21:29)
[2020-01-17] MEDS: UMECLIDINIUM/VILANTEROL (ANORO) 62.5/25 MCG INHALER IH SCH (09:13)
[2020-01-17] MEDS: ENOXAPARIN NA (PORCINE) 40 MG/0.4 ML DISP.SYRIN SQ SCH (09:13)
[2020-01-17] MEDS: NICOTINE 14 MG/24 HOURS TOPICAL PATCH TD SCH (09:13)
[2020-01-17] MEDS: EZETIMIBE 10 MG TABLET (FP) PO SCH (09:13)
[2020-01-17] MEDS: PANTOPRAZOLE SODIUM 40 MG VIAL IVPUSH SCH (09:14)
[2020-01-17] MEDS: IRON SUCROSE INJECTION 200 MG in SODIUM CHLORIDE 90 ML IVPB SCH (10:22)
--- NOTE | 2020-01-17 12:42 | PN ---
Teaching Attending Note Name of Resident: Dottie Greenwood ATTENDING PHYSICIAN STATEMENT I saw and evaluated the patient. I reviewed the resident's note and discussed the case with the resident. I agree with the resident's findings and plan as documented. SUBJECTIVE: pt seen and examined denies complains OBJECTIVE: Last Vital Signs Temp Pulse Resp BP Pulse Ox 98.8 F 65 20 123/60 100 01/17/20 10:01 01/17/20 10:01 01/17/20 10:01 01/17/20 10:01/17/20 10:01 GENERAL: Awake, alert, and fully oriented, in no acute distress. HEAD: Normal with no signs of trauma. EYES: Pupils equal, round and reactive to light, sclera anicteric, conjunctiva clear. LUNGS: Breath sounds equal, clear to auscultation bilaterally. No wheezes, and no crackles. No accessory muscle use. HEART: Regular rate and rhythm, normal S1 and S2 ABDOMEN: Soft, periumbilical and epigastric tenderness but no rebound tenderness, BS+ MUSCULOSKELETAL: Normal range of motion at all joints. No bony deformities or tenderness. No CVA tenderness. UPPER EXTREMITIES: 2+ pulses, warm, well-perfused. No cyanosis. No clubbing. No peripheral edema. LOWER EXTREMITIES: 2+ pulses, warm, well-perfused. No calf tenderness. No peripheral edema. NEUROLOGICAL: Cranial nerves II-XII intact. Normal speech. CBCD WBC 7.2 K/mm3 (4.0-10.0) 01/17/20 08:15 RBC 3.00 M/mm3 (3.60-5.2) L 01/17/20 08:15 Hgb 8.1 GM/dL (10.7-15.3) L 01/17/20 08:15 Hct 25.6 % (32.4-45.2) L 01/17/20 08:15 MCV 85.2 fl (80-96) 01/17/20 08:15 MCHC 31.7 g/dl (32.0-36.0) L 01/17/20 08:15 RDW 16.7 % (11.6-15.6) H 01/17/20 08:15 Plt Count 150 K/MM3 (134-434) 01/17/20 08:15 MPV 9.5 fl (7.5-11.1) 01/17/20 08:15 CMP Sodium 143 mmol/L (136-145) 01/17/20 08:15 Potassium 3.9 mmol/L (3.5-5.1) 01/17/20 08:15 Chloride 111 mmol/L (98-107) H 01/17/20 08:15 Carbon Dioxide 27 mmol/L (21-32) 01/17/20 08:15 Anion Gap 4 MMOL/L (8-16) L 01/17/20 08:15 BUN 14.4 mg/dL (7-18) 01/17/20 08:15 Creatinine 1.0 mg/dL (0.55-1.3) 01/17/20 08:15 Calcium 8.9 mg/dL (8.5-10.1) 01/17/20 08:15 Total Bilirubin 0.5 mg/dL (0.2-1) 01/17/20 08:15 AST 19 U/L (15-37) 01/17/20 08:15 ALT 14 U/L (13-61) 01/17/20 08:15 Alkaline Phosphatase 80 U/L (45-117) 01/17/20 08:15 Total Protein 7.0 g/dl (6.4-8.2) 01/17/20 08:15 Albumin 3.2 g/dl (3.4-5.0) L 01/17/20 08:15 ASSESSMENT AND PLAN: 64 year old woman with a PMH of Tobacco use, NIDDM, HTN, HLD, Anxiety, Remote heroin and cocaine abuse, Lumbar arthritis, GERD, Opiate dependence, Depression and 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
--- NOTE | 2020-01-17 13:00 | PN ---
Progress Note (short form) - Note Progress Note: Resting in NAD on RA. Abdominal pain is improving. No CP or SOB. No acute events overnight. Intake & Output 01/14/20 01/15/20 01/16/20 01/17/20 23:59 23:59 23:59 23:59 Intake Total 700 540 300 100 Output Total 300 Balance 700 240 300 100 Weight 140 lb Last Vital Signs Temp Pulse Resp BP Pulse Ox 98.8 F 65 20 123/60 100 01/17/20 10:01 01/17/20 10:01 01/17/20 10:01 01/17/20 10:01 01/17/20 10:01 Active Medications Buspirone HCl (Buspar -) 10 mg PO BID [facility] Last Admin: 01/17/20 09:13 Dose: 10 mg Documented by: Docusate Sodium (Colace -) 100 mg PO BID PRN PRN Reason: CONSTIPATION Last Admin: 01/15/20 09:25 Dose: 100 mg Documented by: Ezetimibe (Zetia -) 10 mg PO DAILY [facility] Last Admin: 01/17/20 09:13 Dose: 10 mg Documented by: Enoxaparin Sodium (Lovenox -) 40 mg SQ DAILY [facility] Last Admin: 01/17/20 09:13 Dose: 40 mg Documented by: Iron Sucrose 200 mg/ Sodium (Chloride) 100 mls @ 100 mls/hr IVPB Q48H [facility] Stop: 01/23/20 11:59 Last Admin: 01/17/20 10:22 Dose: 100 mls/hr Documented by: Insulin Aspart (Novolog Vial Sliding Scale -) 1 vial SQ ACHS [facility]; Protocol Last Admin: 01/17/20 12:11 Dose: Not Given Documented by: Morphine Sulfate (Morphine Sulfate) 2 mg IVPUSH Q6H PRN PRN Reason: PAIN LEVEL 7 - 10 Last Admin: 01/14/20 19:52 Dose: 2 mg Documented by: Nicotine (Nicoderm Patch -) 14 mg TD DAILY [facility] Last Admin: 01/17/20 09:13 Dose: 14 mg Documented by: Pantoprazole Sodium (Protonix Iv) 40 mg IVPUSH DAILY [facility] Last Admin: 01/17/20 09:14 Dose: 40 mg Documented by: Pregabalin (Lyrica -) 100 mg PO TID [facility] Last Admin: 01/17/20 05:48 Dose: 100 mg Documented by: Senna (Senna -) 1 tab PO HS [facility] Last Admin: 01/16/20 21:12 Dose: 1 tab Documented by: Sertraline HCl (Zoloft -) 150 mg PO HS [facility] Last Admin: 01/16/20 21:12 Dose: 150 mg Documented by: Umeclidinium/Vilanterol (Anoro Ellipta 62.5-25 Mcg Inh) 1 puff IH DAILY [facility] Last Admin: 01/17/20 09:13 Dose: 1 puff Documented by: Constitutional: Yes: No Distress Eyes: Yes: Conjunctiva Clear, EOM Intact HENT: Yes: Atraumatic, Normocephalic Neck: Yes: Supple, Trachea Midline Cardiovascular: Yes: Regular Rate and Rhythm Respiratory: Yes: Diminished, On Nasal O2. No: Accessory Muscle Use, Stridor, Tachypnea, Wheezes ...Clubbing: No Gastrointestinal: Yes: Normal Bowel Sounds, Soft, Tenderness, Tenderness, Epigastrium. No: Pulsatile Mass Renal/: Yes: WNL Musculoskeletal: Yes: WNL Extremities: Yes: WNL Edema: No Peripheral Pulses WNL: Yes Integumentary: Yes: WNL Neurological: Yes: WNL, Alert, Oriented ...Motor Strength: WNL Psychiatric: Yes: WNL, Alert, Oriented Labs: Laboratory Results - last 24 hr 01/16/20 01/16/20 01/17/20 16:40 20:47 05:50 WBC RBC Hgb Hct MCV MCH MCHC RDW Plt Count MPV Absolute Neuts (auto) Neutrophils % Lymphocytes % Monocytes % Eosinophils % Basophils % Nucleated RBC % Sodium Potassium Chloride Carbon Dioxide Anion Gap BUN Creatinine Est GFR (CKD-EPI)AfAm Est GFR (CKD-EPI)NonAf POC Glucometer 89 94 90 Random Glucose Calcium Phosphorus Magnesium Total Bilirubin AST ALT Alkaline Phosphatase Total Protein Albumin 01/17/20 01/17/20 01/17/20 08:15 08:15 11:52 WBC 7.2 RBC 3.00 L Hgb 8.1 L Hct 25.6 L MCV 85.2 MCH 27.0 MCHC 31.7 L RDW 16.7 H Plt Count 150 MPV 9.5 Absolute Neuts (auto) 5.1 Neutrophils % 71.6 Lymphocytes % 20.5 Monocytes % 6.8 Eosinophils % 0.6 Basophils % 0.5 Nucleated RBC % 0 Sodium 143 Potassium 3.9 Chloride 111 H Carbon Dioxide 27 Anion Gap 4 L BUN 14.4 Creatinine 1.0 Est GFR (CKD-EPI)AfAm 68.95 Est GFR (CKD-EPI)NonAf 59.49 POC Glucometer 108 Random Glucose 95 Calcium 8.9 Phosphorus 3.2 Magnesium 2.2 Total Bilirubin 0.5 AST 19 ALT 14 Alkaline Phosphatase 80 Total Protein 7.0 Albumin 3.2 L Imaging - Results Chest X-ray: Report Reviewed, Image Reviewed Cat Scan: Report Reviewed, Image Reviewed Problem List - Problems (1) Dizziness Code(s): R42 - DIZZINESS AND GIDDINESS (2) Metastatic cancer Code(s): C79.9 - SECONDARY MALIGNANT NEOPLASM OF UNSPECIFIED SITE Qualifiers: Area of secondary neoplastic involvement: other site Qualified Code(s): C79.89 - Secondary malignant neoplasm of other specified sites (3) Squamous cell carcinoma of lung Code(s): C34.90 - MALIGNANT NEOPLASM OF UNSP PART OF UNSP BRONCHUS OR LUNG Qualifiers: Laterality: unspecified laterality Qualified Code(s): C34.90 - Malignant neoplasm of unspecified part of unspecified bronchus or lung (4) Asthma Code(s): J45.909 - UNSPECIFIED ASTHMA, UNCOMPLICATED Qualifiers: Asthma severity: mild intermittent Asthma complication type: with status asthmaticus Qualified Code(s): J45.22 - Mild intermittent asthma with status asthmaticus (5) Drug-induced mood disorder Code(s): F19.94 - OTH PSYCHOACTIVE SUBSTANCE USE, UNSP W MOOD DISORDER (6) GERD (gastroesophageal reflux disease) Code(s): K21.9 - GASTRO-ESOPHAGEAL REFLUX DISEASE WITHOUT ESOPHAGITIS Qualifiers: Esophagitis presence: without esophagitis Qualified Code(s): K21.9 - Gastro-esophageal reflux disease without esophagitis (7) Hyperlipidemia associated with type 2 diabetes mellitus Code(s): E11.69 - TYPE 2 DIABETES MELLITUS WITH OTHER SPECIFIED COMPLICATION; E78.5 - HYPERLIPIDEMIA, UNSPECIFIED (8) Mass of right lung Code(s): R91.8 - OTHER NONSPECIFIC ABNORMAL FINDING OF LUNG FIELD (9) Nicotine dependence Code(s): F17.200 - NICOTINE DEPENDENCE, UNSPECIFIED, UNCOMPLICATED Qualifiers: Nicotine product type: cigarettes Substance use status: in withdrawal Qualified Code(s): F17.213 - Nicotine dependence, cigarettes, with withdrawal (10) Cocaine dependence, uncomplicated Code(s): F14.20 - COCAINE DEPENDENCE, UNCOMPLICATED (11) Anxiety and depression Code(s): F41.9 - ANXIETY DISORDER, UNSPECIFIED; F32.9 - MAJOR DEPRESSIVE DISORDER, SINGLE EPISODE, UNSPECIFIED Assessment/Plan IMP: No evidence of PNA or infection PLAN: Monitor off ABX Supplemental O2 as needed BD TX PRN Anoro OD No clear indication for systemic steroids VTE prophylaxis GI workup ongoing Dr Patterson Problem List - Problems (1) Dizziness Code(s): R42 - DIZZINESS AND GIDDINESS (2) Metastatic cancer Code(s): C79.9 - SECONDARY MALIGNANT NEOPLASM OF UNSPECIFIED SITE Qualifiers: Area of secondary neoplastic involvement: other site Qualified Code(s): C79.89 - Secondary malignant neoplasm of other specified sites (3) Squamous cell carcinoma of lung Code(s): C34.90 - MALIGNANT NEOPLASM OF UNSP PART OF UNSP BRONCHUS OR LUNG Qualifiers: Laterality: unspecified laterality Qualified Code(s): C34.90 - Malignant neoplasm of unspecified part of unspecified bronchus or lung (4) Asthma Code(s): J45.909 - UNSPECIFIED ASTHMA, UNCOMPLICATED Qualifiers: Asthma severity: mild intermittent Asthma complication type: with status asthmaticus (5) Drug-induced mood disorder Code(s): F19.94 - OTH PSYCHOACTIVE SUBSTANCE USE, UNSP W MOOD DISORDER (6) GERD (gastroesophageal reflux disease) Code(s): K21.9 - GASTRO-ESOPHAGEAL REFLUX DISEASE WITHOUT ESOPHAGITIS Qualifiers: Esophagitis presence: without esophagitis Qualified Code(s): K21.9 - Gastro-esophageal reflux disease without esophagitis (7) Hyperlipidemia associated with type 2 diabetes mellitus Code(s): E11.69 - TYPE 2 DIABETES MELLITUS WITH OTHER SPECIFIED COMPLICATION; E78.5 - HYPERLIPIDEMIA, UNSPECIFIED (8) Mass of right lung Code(s): R91.8 - OTHER NONSPECIFIC ABNORMAL FINDING OF LUNG FIELD (9) Nicotine dependence Code(s): F17.200 - NICOTINE DEPENDENCE, UNSPECIFIED, UNCOMPLICATED Qualifiers: Nicotine product type: cigarettes Substance use status: in withdrawal Qualified Code(s): F17.213 - Nicotine dependence, cigarettes, with withdrawal (10) Cocaine dependence, uncomplicated Code(s): F14.20 - COCAINE DEPENDENCE, UNCOMPLICATED (11) Anxiety and depression Code(s): F41.9 - ANXIETY DISORDER, UNSPECIFIED; F32.9 - MAJOR DEPRESSIVE DISORDER, SINGLE EPISODE, UNSPECIFIED
--- NOTE | 2020-01-17 16:13 | PN ---
Physical Exam: SUBJECTIVE: Patient seen and examined OBJECTIVE: Vital Signs Temperature 98.2 F 01/17/20 15:01 Pulse Rate 65 01/17/20 15:01 Respiratory Rate 20 01/17/20 15:01 Blood Pressure 103/60 01/17/20 15:01 O2 Sat by Pulse Oximetry (%) 100 01/17/20 15:01 GENERAL: The patient is awake, alert, and fully oriented, in no acute distress. NECK: full range of motion, supple. LUNGS: Breath sounds equal, clear to auscultation bilaterally HEART: Regular rate and rhythm, S1, S2 ABDOMEN: Soft, +periumbilical tenderness on deep palpation, nondistended, normoactive bowel sounds EXTREMITIES: 2+ pulses, warm, well-perfused, no edema. NEUROLOGICAL: Cranial nerves II through XII grossly intact. Normal speech PSYCH: Normal mood, normal affect. SKIN: Warm, dry, normal turgor Laboratory Results - last 24 hr 01/16/20 01/16/20 01/17/20 16:40 20:47 05:50 WBC RBC Hgb Hct MCV MCH MCHC RDW Plt Count MPV Absolute Neuts (auto) Neutrophils % Lymphocytes % Monocytes % Eosinophils % Basophils % Nucleated RBC % Sodium Potassium Chloride Carbon Dioxide Anion Gap BUN Creatinine Est GFR (CKD-EPI)AfAm Est GFR (CKD-EPI)NonAf POC Glucometer 89 94 90 Random Glucose Calcium Phosphorus Magnesium Total Bilirubin AST ALT Alkaline Phosphatase Total Protein Albumin 01/17/20 01/17/20 01/17/20 08:15 08:15 11:52 WBC 7.2 RBC 3.00 L Hgb 8.1 L Hct 25.6 L MCV 85.2 MCH 27.0 MCHC 31.7 L RDW 16.7 H Plt Count 150 MPV 9.5 Absolute Neuts (auto) 5.1 Neutrophils % 71.6 Lymphocytes % 20.5 Monocytes % 6.8 Eosinophils % 0.6 Basophils % 0.5 Nucleated RBC % 0 Sodium 143 Potassium 3.9 Chloride 111 H Carbon Dioxide 27 Anion Gap 4 L BUN 14.4 Creatinine 1.0 Est GFR (CKD-EPI)AfAm 68.95 Est GFR (CKD-EPI)NonAf 59.49 POC Glucometer 108 Random Glucose 95 Calcium 8.9 Phosphorus 3.2 Magnesium 2.2 Total Bilirubin 0.5 AST 19 ALT 14 Alkaline Phosphatase 80 Total Protein 7.0 Albumin 3.2 L Active Medications Generic Name Dose Route Start Last Admin Trade Name Freq PRN Reason Stop Dose Admin Buspirone HCl 10 mg 01/14/20 22:00 01/17/20 09:13 Buspar - PO 10 mg BID [facility] Administration Docusate Sodium 100 mg 01/14/20 17:34 01/15/20 09:25 Colace - PO 100 mg BID PRN Administration CONSTIPATION Ezetimibe 10 mg 01/14/20 10:00 01/17/20 09:13 Zetia - PO 10 mg DAILY [facility] Administration Enoxaparin Sodium 40 mg 01/17/20 10:00 01/17/20 09:13 Lovenox - SQ 40 mg DAILY [facility] Administration Iron Sucrose 200 mg/ Sodium 100 mls @ 100 mls/hr 01/15/20 11:00 01/17/20 10:22 Chloride IVPB 01/23/20 11:59 100 mls/hr Q48H [facility] Administration Insulin Aspart 1 vial 01/14/20 07:00 01/17/20 12:11 Novolog Vial Sliding Scale - SQ Not Given ACHS [facility] Protocol Morphine Sulfate 2 mg 01/14/20 17:33 01/14/20 19:52 Morphine Sulfate IVPUSH 2 mg Q6H PRN Administration PAIN LEVEL 7 - 10 Nicotine 14 mg 01/14/20 10:00 01/17/20 09:13 Nicoderm Patch - TD 14 mg DAILY [facility] Administration Pantoprazole Sodium 40 mg 01/14/20 10:00 01/17/20 09:14 Protonix Iv IVPUSH 40 mg DAILY [facility] Administration Pregabalin 100 mg 01/14/20 06:00 01/17/20 14:09 Lyrica - PO 100 mg TID [facility] Administration Senna 1 tab 01/14/20 22:00 01/16/20 21:12 Senna - PO 1 tab HS [facility] Administration Sertraline HCl 150 mg 01/14/20 22:00 01/16/20 21:12 Zoloft - PO 150 mg HS [facility] Administration Umeclidinium/Vilanterol 1 puff 01/14/20 10:00 01/17/20 09:13 Anoro Ellipta 62.5-25 Mcg Inh IH 1 puff DAILY [facility] Administration ASSESSMENT/PLAN: Patient is a 64 year old female with a PMH of 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 #Abdominal pain - Most likely 2/2 to gastric metastasis vs Gastritis - CT Abd: Cholelithiasis with dilated CBD, no obvious obstruction. Possible [id number] mass like area in the gastric body, no definite evidence of addtional metastatic disease within the abdomen/pelvis - MRCP : significant diffuse dilatation of the extrahepatic biliary tree with mild intrahepatic, predominantly central, biliary ductal dilatation with distal sudden cut off but no evidence of fillings defects or focal mass. Nonspecific minimally ectatic pancreatic duct with no gross focal pancreatic abnormality. Questionable thickening of the gastric antrum. - EGD done - erythematous gastropathy/hiatus hernia, no evidence of mass lesion - continue PPI - regular diet tolerated - to follow up pathology report - Gastroenterology (Dr. Richmond) consulted. Recommendations appreciated #Hx of Small Cell Lung CA -Metastatic SCLC s/p lobectomy, s/p brain RT w/ resection -CT scans very large 10 cm RUL mass invading the mediastinum and rt. atrium. LT. adrenal nodularity. ? gastric mass -May be a candidate for immunotherapy -- pembrolizumab, when discharged as outpatient -will also request rad-onc input -supplemental Oxygen prn to keep SPO2> 95% -HEme-Onc (Dr. Van) consulted. Recommendations appreciated. -Pulmonology (Dr. Patterson) following. Recommendations appreciated #Hyperkalemia - 6.7 on admission, likely hemolysis - K now normal #Asymptomatic bacteriuria - UA analysis: 2+ leuk est w/ wbc 97, bacteria 1497, epithelial cells >30 - Urine culture normal morris - will hold off abx and monitor - Infectious Disease (Dr. Barnett) following. Recommendations appreciated #Anemia - Very Low iron (30), low-normal TIBC - Most likely 2/2 malignancy (Anemia of chronic disease) - Monitor CBC #Chronic back pain - Pain management with TYlenol/morphine - will avoid NSAIDs #Asthma - Anoro ellipta 1 puff daily (Home med) #GERD -Pantoprazole 40 mg qd (home med) #DM - ISS - BGM ACHS #Neuropathy - Pregabalin 100 mg TID (Home med) #HLD - Ezetimibe 10 mg QD #Depression/anxiety - Sertraline 150 mg qd, Buspirone 10mg bid (Home med) #HTN - Blood pressure low-normal, continue to monitor - Held home meds #Nicotine dependence (1 PPD) - Active - Nicoderm patch 14 mg QD #FEN - Not on any standing fluids - Continue to monitor electrolytes - Regular diet #DVT PPX: - Lovenox 40 mg daily #Disposition - full code - Continue to monitor on MS floor. - for discharge in the morning after outpatient Venofer infusion set up Visit type - Emergency Visit Emergency Visit: Yes ED Registration Date: 01/13/20 Care time: The patient presented to the Emergency Department on the above date and was hospitalized for further evaluation of their emergent condition. - New Patient This patient is new to me today: No - Critical Care Critical Care patient: No ATTENDING PHYSICIAN STATEMENT I saw and evaluated the patient. I reviewed the resident's note and discussed the case with the resident. I agree with the resident's findings and plan as documented. SUBJECTIVE: OBJECTIVE: ASSESSMENT AND PLAN:
[2020-01-17] MEDS: SERTRALINE HCL 50 MG TABLET (FP) PO SCH (21:29)
[2020-01-17] MEDS: SENNOSIDES 8.6MG TABLET (FP) PO SCH (21:29)
[2020-01-18] MEDS: PREGABALIN 100 MG CAPSULE PO SCH (06:15)
[2020-01-18] MEDS: INSULIN SLIDING SCALE (NOVOLOG) 1 VIAL SQ SCH (06:16)
[2020-01-18 09:03] VITALS: BP 123/70; PULSE 60; TEMP 99
[2020-01-18] MEDS: UMECLIDINIUM/VILANTEROL (ANORO) 62.5/25 MCG INHALER IH SCH (09:15)
[2020-01-18] MEDS: busPIRone HCL 10 MG TABLET (FP) PO SCH (09:16)
[2020-01-18] MEDS: ENOXAPARIN NA (PORCINE) 40 MG/0.4 ML DISP.SYRIN SQ SCH (09:16)
[2020-01-18] MEDS: NICOTINE 14 MG/24 HOURS TOPICAL PATCH TD SCH (09:16)
[2020-01-18] MEDS: EZETIMIBE 10 MG TABLET (FP) PO SCH (09:16)
[2020-01-18] MEDS: PANTOPRAZOLE SODIUM 40 MG VIAL IVPUSH SCH (09:16)
--- NOTE | 2020-01-18 10:49 | PN ---
Progress Note (short form) - Note Progress Note: PULMONARY Resting in NAD on RA. No CP or SOB. No acute events overnight. Constitutional: Yes: No Distress Eyes: Yes: Conjunctiva Clear, EOM Intact HENT: Yes: Atraumatic, Normocephalic Neck: Yes: Supple, Trachea Midline Cardiovascular: Yes: Regular Rate and Rhythm Respiratory: Yes: Diminished, On Nasal O2. No: Accessory Muscle Use, Stridor, Tachypnea, Wheezes ...Clubbing: No Gastrointestinal: Yes: Normal Bowel Sounds, Soft, Tenderness, Tenderness, Epigastrium. No: Pulsatile Mass Renal/: Yes: WNL Musculoskeletal: Yes: WNL Extremities: Yes: WNL Edema: No Peripheral Pulses WNL: Yes Integumentary: Yes: WNL Neurological: Yes: WNL, Alert, Oriented ...Motor Strength: WNL Psychiatric: Yes: WNL, Alert, Oriented Labs: REVIEWED Imaging - Results Chest X-ray: Report Reviewed, Image Reviewed Cat Scan: Report Reviewed, Image Reviewed Problem List - Problems (1) Dizziness Code(s): R42 - DIZZINESS AND GIDDINESS (2) Metastatic cancer Code(s): C79.9 - SECONDARY MALIGNANT NEOPLASM OF UNSPECIFIED SITE Qualifiers: Area of secondary neoplastic involvement: other site Qualified Code(s): C79.89 - Secondary malignant neoplasm of other specified sites (3) Squamous cell carcinoma of lung Code(s): C34.90 - MALIGNANT NEOPLASM OF UNSP PART OF UNSP BRONCHUS OR LUNG Qualifiers: Laterality: unspecified laterality Qualified Code(s): C34.90 - Malignant neoplasm of unspecified part of unspecified bronchus or lung (4) Asthma Code(s): J45.909 - UNSPECIFIED ASTHMA, UNCOMPLICATED Qualifiers: Asthma severity: mild intermittent Asthma complication type: with status asthmaticus Qualified Code(s): J45.22 - Mild intermittent asthma with status asthmaticus (5) Drug-induced mood disorder Code(s): F19.94 - OTH PSYCHOACTIVE SUBSTANCE USE, UNSP W MOOD DISORDER (6) GERD (gastroesophageal reflux disease) Code(s): K21.9 - GASTRO-ESOPHAGEAL REFLUX DISEASE WITHOUT ESOPHAGITIS Qualifiers: Esophagitis presence: without esophagitis Qualified Code(s): K21.9 - G cindy-esophageal reflux disease without esophagitis (7) Hyperlipidemia associated with type 2 diabetes mellitus Code(s): E11.69 - TYPE 2 DIABETES MELLITUS WITH OTHER SPECIFIED COMPLICATION; E78.5 - HYPERLIPIDEMIA, UNSPECIFIED (8) Mass of right lung Code(s): R91.8 - OTHER NONSPECIFIC ABNORMAL FINDING OF LUNG FIELD (9) Nicotine dependence Code(s): F17.200 - NICOTINE DEPENDENCE, UNSPECIFIED, UNCOMPLICATED Qualifiers: Nicotine product type: cigarettes Substance use status: in withdrawal Qualified Code(s): F17.213 - Nicotine dependence, cigarettes, with withdrawal (10) Cocaine dependence, uncomplicated Code(s): F14.20 - COCAINE DEPENDENCE, UNCOMPLICATED (11) Anxiety and depression Code(s): F41.9 - ANXIETY DISORDER, UNSPECIFIED; F32.9 - MAJOR DEPRESSIVE DISORDER, SINGLE EPISODE, UNSPECIFIED Monitor off ABX Supplemental O2 as needed BD TX PRN Anoro OD No clear indication for systemic steroids VTE prophylaxis Emy YEUNG MD
--- NOTE | 2020-01-18 11:52 | PN ---
Teaching Attending Note Name of Resident: Dottie Greenwood ATTENDING PHYSICIAN STATEMENT I saw and evaluated the patient. I reviewed the resident's note and discussed the case with the resident. I agree with the resident's findings and plan as documented. SUBJECTIVE: pt seen and examined at beside, waiting to leave OBJECTIVE: Last Vital Signs Temp Pulse Resp BP Pulse Ox 99.0 F 60 18 123/70 100 01/18/20 09:00 01/18/20 09:00 01/18/20 09:00 01/18/20 09:00 01/18/20 09:00 GENERAL: Awake, alert, and fully oriented, in no acute distress. HEAD: Normal with no signs of trauma. EYES: Pupils equal, round and reactive to light, sclera anicteric, conjunctiva clear. LUNGS: Breath sounds equal, clear to auscultation bilaterally. No wheezes, and no crackles. No accessory muscle use. HEART: Regular rate and rhythm, normal S1 and S2 ABDOMEN: Soft, periumbilical and epigastric tenderness but no rebound tenderness, BS+ MUSCULOSKELETAL: Normal range of motion at all joints. No bony deformities or tenderness. No CVA tenderness. UPPER EXTREMITIES: 2+ pulses, warm, well-perfused. No cyanosis. No clubbing. No peripheral edema. LOWER EXTREMITIES: 2+ pulses, warm, well-perfused. No calf tenderness. No peripheral edema. NEUROLOGICAL: Cranial nerves II-XII intact. Normal speech.. CBCD WBC 7.2 K/mm3 (4.0-10.0) 01/17/20 08:15 RBC 3.00 M/mm3 (3.60-5.2) L 01/17/20 08:15 Hgb 8.1 GM/dL (10.7-15.3) L 01/17/20 08:15 Hct 25.6 % (32.4-45.2) L 01/17/20 08:15 MCV 85.2 fl (80-96) 01/17/20 08:15 MCHC 31.7 g/dl (32.0-36.0) L 01/17/20 08:15 RDW 16.7 % (11.6-15.6) H 01/17/20 08:15 Plt Count 150 K/MM3 (134-434) 01/17/20 08:15 MPV 9.5 fl (7.5-11.1) 01/17/20 08:15 CMP Sodium 143 mmol/L (136-145) 01/17/20 08:15 Potassium 3.9 mmol/L (3.5-5.1) 01/17/20 08:15 Chloride 111 mmol/L (98-107) H 01/17/20 08:15 Carbon Dioxide 27 mmol/L (21-32) 01/17/20 08:15 Anion Gap 4 MMOL/L (8-16) L 01/17/20 08:15 BUN 14.4 mg/dL (7-18) 01/17/20 08:15 Creatinine 1.0 mg/dL (0.55-1.3) 01/17/20 08:15 Calcium 8.9 mg/dL (8.5-10.1) 01/17/20 08:15 Total Bilirubin 0.5 mg/dL (0.2-1) 01/17/20 08:15 AST 19 U/L (15-37) 01/17/20 08:15 ALT 14 U/L (13-61) 01/17/20 08:15 Alkaline Phosphatase 80 U/L (45-117) 01/17/20 08:15 Total Protein 7.0 g/dl (6.4-8.2) 01/17/20 08:15 Albumin 3.2 g/dl (3.4-5.0) L 01/17/20 08:15 ASSESSMENT AND PLAN: 64 year old woman with a PMH of Tobacco use, NIDDM, HTN, HLD, Anxiety, Remote heroin and cocaine abuse, Lumbar arthritis, GERD, Opiate dependence, Depression and Squamous cell carcinoma of lung (RUL) with metastasis to brain (last chemotherapy in 06/2019) presents to ER for worsening periumbilical pain # Abdominal pain of unknown etiology, resolved Metastatic SCLC s/p lobectomy, s/p brain RT w/ resection EGD showed gastritis, biopsies taken, no mass for immunotherapy after discharge IV venofer per hem/onc non compliant with meds and follow up medication compliance discussed, will send supplement for few days GI consult appreciated pulmonary consult appreciated ID consult appreciated hemonc appreciated discharge planning
--- NOTE | 2020-01-18 12:32 | DS ---
Physical Exam: SUBJECTIVE: Patient seen and examined. Patient reports feeling well and has no complaints. OBJECTIVE: PHYSICAL EXAM GENERAL: The patient is awake, alert, and fully oriented, in no acute distress. NECK: full range of motion, supple. LUNGS: Breath sounds equal, clear to auscultation bilaterally HEART: Regular rate and rhythm, S1, S2 ABDOMEN: Soft, nontender, nondistended, normoactive bowel sounds EXTREMITIES: 2+ pulses, warm, well-perfused, no edema. NEUROLOGICAL: Cranial nerves II through XII grossly intact. Normal speech PSYCH: Normal mood, normal affect. 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 CTAP was done which revealed Cholelithiasis with dilated CBD, no obvious obstruction. Possible [id number] mass like area in the gastric body, no definite evidence of addtional metastatic disease within the abdomen/pelvis. She was evaluated by GI and had and EGD done which showed erythematous gastropathy/hiatus hernia, no evidence of mass lesion. Patient was started on Protonix. Patient was also evaluated by Heme-Onc and recommended immunotherapy on discharge. Patient's abdominal pain improved throughout her hospital stay and was discharged with instructions to follow up with PCP, GI to follow up biopsy results and Oncology for further management of her Ca. Minutes to complete discharge: 36 Discharge Summary Problems reviewed: Yes Reason For Visit: METASTATIC MALIGNANT NEOPLASM,SQUAMOUS CELL Current Active Problems Abdominal pain (Acute) Anemia (Acute) Dilated bile duct (Acute) Dizziness (Acute) Gastric mass (Acute) Lung cancer (Acute) Metastatic cancer (Acute) Pneumonia (Acute) Squamous cell carcinoma of lung (Acute) Condition: Improved - Instructions Diet, Activity, Other Instructions: Your visit You were admitted to the hospital because you had belly pain. You were evaluated by the furnishings conservator and an EGD was done to check your stomach. You had some injury in the stomach lining possibly from acid reflux. You will take a medication to help protect the lining of your stomach. Some samples of your stomach/bowels were also taken out for biopsy. Please follow up with the furnishings conservator to discuss the biopsy results. Medications Please take the following medication as prescribed: 1. Protonix 40mg once a day. Please continue your home medications. Follow up Please follow up with your primary care provider (Dr. Young) in 1 week. Please follow up with your oncologist (Dr. Fraga/Dr. Van) in 1 week. Please follow up with the furnishings conservator (Dr. Richmond) in 1-2 weeks to discuss biopsy results. Additional info Please call 911 or go to the ED if with any worsening fevers, chills, headache, dizziness, chest pain, shortness of breath, belly pain, nausea, vomiting, or any new concerns noted. Referrals: Lefty Richmond DO [Staff Physician] - 2 Weeks Jp Young [Primary Care Provider] - 1 Week Carlota Fried MD [Staff Physician] - Disposition: VNS/HOME HEALTH CARE - Home Medications Comprehensive Discharge Medication List: Ambulatory Orders Umeclidinium Brm/Vilanterol Tr [Anoro Ellipta 62.5-25 Mcg INH] 1 each IH DAILY 03/07/17 Docusate Sodium [Colace -] 100 mg PO BID PRN capsule 01/17/20 Pantoprazole Sodium [Protonix -] 40 mg PO DAILY #30 tablet.ec 01/17/20 Sennosides [Senna -] 1 tab PO HS tablet 01/17/20 Buspirone HCl [Buspar -] 5 mg PO BID #28 tablet 01/18/20 Ezetimibe [Zetia -] 10 mg PO DAILY #14 tablet 01/18/20 Pregabalin [Lyrica -] 100 mg PO TID #15 cap MDD 300 01/18/20 Sertraline HCl [Zoloft -] 100 mg PO DAILY #14 tablet 01/18/20 This patient is new to me today: No Emergency Visit: Yes ED Registration Date: 01/13/20 Care time: The patient presented to the Emergency Department on the above date and was hospitalized for further evaluation of their emergent condition. Critical Care patient: No - Discharge Referral Referred to [facility] No ATTENDING PHYSICIAN STATEMENT I saw and evaluated the patient. I reviewed the resident's note and discussed the case with the resident. I agree with the resident's findings and plan as documented. SUBJECTIVE: OBJECTIVE: ASSESSMENT AND PLAN:
--- NOTE | 2020-01-18 20:01 | PATH ---
Surgical Pathology Report Patient Name: EDELMIRA JHAVERI [facility]. Rec. #: [id number] /Age/Gender: 1955 (Age: 64) / F Account: [id number] Location: EMERGENCY ROOM Taken: 01/16/2020 Received: 01/17/2020 Reported: 01/18/2020 Physicians: IWONA Abraham M.D. Specimen(s) Received A: DUODENUM B: GASTRIC ANTRUM C: GE JUNCTION Clinical History Rule out gastric mass Postoperative diagnosis: Small hiatal hernia, gastritis No mass on endoscopy Final Diagnosis A. DUODENUM, BIOPSY: DUODENAL MUCOSA WITHOUT SIGNIFICANT PATHOLOGIC FINDINGS. B. GASTRIC ANTRUM, BIOPSY: GASTRIC ANTRAL MUCOSA WITH MILD CHRONIC GASTRITIS. IMMUNOHISTOCHEMICAL STAIN FOR H. PYLORI IS NEGATIVE. C. GE JUNCTION, BIOPSY: GASTRIC CARDIAC TYPE MUCOSA WITH MILD CHRONIC GASTRITIS. IMMUNOHISTOCHEMICAL STAIN FOR H. PYLORI IS NEGATIVE. NO SQUAMOUS MUCOSA, INTESTINAL METAPLASIA, OR DYSPLASIA IDENTIFIED. Positive and negative controls (internal if applicable) show appropriate results. Electronically Signed Razia Stern M.D. Gross Description A. Received in formalin, labeled "biopsy duodenum" is a wilcox, irregular portion of soft tissue measuring 0.7 cm. in greatest dimension. The specimen is submitted in toto in one cassette. B. Received in formalin, labeled "biopsy gastric antrum" is a wilcox, irregular portion of soft tissue measuring 0.6 cm. in greatest dimension. The specimen is submitted in toto in one cassette. C. Received in formalin, labeled "biopsy GE junction" is a wilcox, irregular portion of soft tissue measuring 0.2 cm. in greatest dimension. The specimen is submitted in toto in one cassette. /01/17/2020 saudi/01/17/2020
== END 2020-01-18 13:02 | disposition home health service (06) | DRG 392 ==
LOC: JER 14:26 → SUPCPDRO 14:26 → JERBED 18:32 → J6WEST-2 01-14 13:09
PROVIDERS: ADMIT Internal Medicine; ATTEND Student in an Organized Health Care Education/Training Program
PROC: 0DB68ZX Excision of Stomach, Via Natural or Artificial Opening Endoscopic, Diagnostic (ICD-10-PCS; 2020-01-16)
PROC: 0DB48ZX Excision of Esophagogastric Junction, Via Natural or Artificial Opening Endoscopic, Diagnostic (ICD-10-PCS; 2020-01-16)
PROC: 0DB98ZX Excision of Duodenum, Via Natural or Artificial Opening Endoscopic, Diagnostic (ICD-10-PCS; principal; 2020-01-16 14:30)
DX: K29.70 Gastritis, unspecified, without bleeding (principal); C34.11 Malignant neoplasm of upper lobe, right bronchus or lung; C79.31 Secondary malignant neoplasm of brain; F14.20 Cocaine dependence, uncomplicated; C79.9 Secondary malignant neoplasm of unspecified site; R04.2 Hemoptysis; J45.22 Mild intermittent asthma with status asthmaticus; F17.210 Nicotine dependence, cigarettes, uncomplicated; E11.40 Type 2 diabetes mellitus with diabetic neuropathy, unspecified; R42 Dizziness and giddiness; F41.8 Other specified anxiety disorders; F19.94 Other psychoactive substance use, unspecified with psychoactive substance-induced mood disorder; K21.9 Gastro-esophageal reflux disease without esophagitis; D63.8 Anemia in other chronic diseases classified elsewhere; E87.5 Hyperkalemia; G62.9 Polyneuropathy, unspecified; K44.9 Diaphragmatic hernia without obstruction or gangrene; J44.9 Chronic obstructive pulmonary disease, unspecified; E78.5 Hyperlipidemia, unspecified; E11.69 Type 2 diabetes mellitus with other specified complication; R62.7 Adult failure to thrive; R10.13 Epigastric pain; R63.0 Anorexia; R63.4 Abnormal weight loss; I10 Essential (primary) hypertension
CPT/HCPCS: 36415; 70450-TC; 71260-TC; 74177-TC; 74181-TC; 80053; 81003; 82272; 82550; 82728; 82962; 83036; 83540; 83550; 83615; 83690; 83735; 84100; 84132; 84484; 84550; 85025; 85044; 85610; 85730; 87040; 87086; 87899; 88305-TC; 93005; 93010; 97116-GP; 97161-GP; 99285-25; J0131; J1756; Q9967; U0003

== ENCOUNTER 2020-01-19 11:34 | Day surgery (SDC) | payer OTHER ==
[2020-01-19] MEDS ORDERED: IRON SUCROSE INJECTION 200 MG in SODIUM CHLORIDE 100 ML IVPB SCH (12:30)
[2020-01-19 12:59] VITALS: TEMP 98.8
[2020-01-19 14:31] VITALS: BP 98/60; PULSE 66
[2020-01-19] MEDS ORDERED: PORTA CATH FLUSH 10 ML IVPUSH ONE (14:31)
== END 2020-01-19 14:30 | disposition home or self-care (01) ==
LOC: JINFUSION 11:34 → J7W 11:37 → JINFUSION 14:30
PROVIDERS: ATTEND Internal Medicine Nephrology
PROC: 3E033GC Introduction of Other Therapeutic Substance into Peripheral Vein, Percutaneous Approach (ICD-10-PCS; principal; 2020-01-19)
DX: D50.9 Iron deficiency anemia, unspecified (principal)
CPT/HCPCS: 96365; J1756

== ENCOUNTER 2020-01-23 11:47 | Day surgery (SDC) | payer OTHER ==
[2020-01-23] MEDS ORDERED: IRON SUCROSE INJECTION 200 MG in SODIUM CHLORIDE 100 ML IVPB ONE (12:15)
[2020-01-23 12:41] VITALS: TEMP 98.9
[2020-01-23 14:18] VITALS: BP 108/61; PULSE 72
== END 2020-01-23 15:49 | disposition home or self-care (01) ==
LOC: JINFUSION 11:47 → J7W 11:48 → JINFUSION 15:49
PROVIDERS: ATTEND Internal Medicine Nephrology
PROC: 3E033GC Introduction of Other Therapeutic Substance into Peripheral Vein, Percutaneous Approach (ICD-10-PCS; principal; 2020-01-23)
DX: D50.9 Iron deficiency anemia, unspecified (principal)
CPT/HCPCS: 96365; J1756

== ENCOUNTER 2020-01-28 14:50 | Emergency (ER) | payer OTHER ==
--- NOTE | 2020-01-28 14:56 | PDOC ---
Rapid Medical Evaluation Time Seen by Provider: 01/28/20 14:52 Medical Evaluation: Allergies Allergy/AdvReac Type Severity Reaction Status Date / Time Sulfa (Sulfonamide Allergy Unknown Verified 03/09/17 12:06 Antibiotics) 01/28/20 14:55 CC: gen abd pain with diarrhea x 4 days, feels weak, no other complaints ExaM: thin, upper abd tenderness Plan: labs Discharge Disposition - Diagnosis Abdominal pain - Referrals - Patient Instructions - Post Discharge Activity
[2020-01-28 14:59] VITALS: BP 112/69; PULSE 90; TEMP 98.5; BMI 20.7
--- NOTE | 2020-01-28 15:49 | PDOC ---
History of Present Illness - General Chief Complaint: Pain Stated Complaint: SICK Time Seen by Provider: 01/28/20 14:52 History Source: Patient Exam Limitations: No Limitations - History of Present Illness Initial Comments: 01/28/20 15:48 HPI: This is a 64 y/o female with a PMH of SCLC s/p resection of brain mets + chemo, DM, HTN, HLD, depression presenting to the ED because of 6 months of sharp 10/10 periumbilical pain that is intermittent. She says it happens after she eats, but also happens randomly and can last between a few minutes and the entire day. She denies any accompany nausea o vomiting. She admits to some non-bloody diarrhea but states that is normal for her. She says there's no change in her pain from the last time she was here, and that her pain is completely gone right now. ROS: GENERAL/CONSTITUTIONAL: No fever/chills. No weakness. HEAD, EYES, EARS, NOSE AND THROAT: No change in vision. No ear pain or discharge. No sore throat. CARDIOVASCULAR: No chest pain or shortness of breath. RESPIRATORY: Yes cough, wheezing, and hemoptysis. GASTROINTESTINAL: No nausea, vomiting, diarrhea or constipation. GENITOURINARY: No dysuria, frequency, or change in urination. MUSCULOSKELETAL: No joint or muscle swelling or pain. No neck or back pain. SKIN: No rash NEUROLOGIC: No headache, vertigo, loss of consciousness, or change in strength/sensation. ENDOCRINE: No increased thirst. No abnormal weight change. HEMATOLOGIC/LYMPHATIC: No anemia, easy bleeding, or history of blood clots. ALLERGIC/IMMUNOLOGIC: No hives or skin allergy. PMH: SCLC s/p resection, DM, HTN, HLD, depression Meds: See nurse note Allergies: Sulfa PE: GENERAL: Awake, alert, and fully oriented, in no acute distress. Patient is conversational, and in bed. HEAD: No signs of trauma EYES: PERRLA, EOMI, scleral icterus ENT:nares patent, Moist mucosa NECK: Normal ROM, supple, LUNGS: Breath sounds equal, clear to auscultation bilaterally HEART: Regular rate and rhythm, normal S1 and S2, no murmurs, rubs or gallops ABDOMEN: Soft, tender in RUQ, normoactive bowel sounds. No guarding, no rebound. No masses EXTREMITIES: Normal range of motion, no edema. No clubbing or cyanosis. No cords, erythema, or tenderness NEUROLOGICAL: Cranial nerves II through XII grossly intact. Normal speech, normal gait SKIN: Warm, Dry, normal turgor, no rashes or lesions noted. 01/28/20 16:17 MDM: This is a 64 y/o female with a PMH of SCLC s/p resection of brain mets + chemo, DM, HTN, HLD, depression presenting to the ED because of 6 months of sharp 10/10 periumbilical pain that is intermittent. - Recently presented to the ED for the same complaint - Had MRI and was advised to follow-up outpatient - Pain resolved in ED - Will get basic labs CBC WBC 7.7 K/mm3 (4.0-10.0) 01/28/20 16:10 RBC 3.40 M/mm3 (3.60-5.2) L 01/28/20 16:10 Hgb 9.3 GM/dL (10.7-15.3) L 01/28/20 16:10 Hct 29.6 % (32.4-45.2) L D 01/28/20 16:10 MCV 87.0 fl (80-96) 01/28/20 16:10 MCH 27.4 pg (25.7-33.7) 01/28/20 16:10 MCHC 31.4 g/dl (32.0-36.0) L 01/28/20 16:10 RDW 20.4 % (11.6-15.6) H 01/28/20 16:10 Plt Count 203 K/MM3 (134-434) D 01/28/20 16:10 MPV 9.6 fl (7.5-11.1) 01/28/20 16:10 Absolute Neuts (auto) 5.6 K/mm3 (1.5-8.0) 01/28/20 16:10 Neutrophils % 73.4 % (42.8-82.8) 01/28/20 16:10 Lymphocytes % 19.2 % (8-40) 01/28/20 16:10 Monocytes % 6.1 % (3.8-10.2) 01/28/20 16:10 Eosinophils % 0.7 % (0-4.5) 01/28/20 16:10 Basophils % 0.6 % (0-2.0) 01/28/20 16:10 Nucleated RBC % 0 % (0-0) 01/28/20 16:10 No Leukocytosis, chronic anemia CMP Sodium 140 mmol/L (136-145) 01/28/20 16:10 Potassium 3.8 mmol/L (3.5-5.1) 01/28/20 16:10 Chloride 110 mmol/L (98-107) H 01/28/20 16:10 Carbon Dioxide 22 mmol/L (21-32) 01/28/20 16:10 Anion Gap 8 MMOL/L (8-16) 01/28/20 16:10 BUN 11.2 mg/dL (7-18) 01/28/20 16:10 Creatinine 0.8 mg/dL (0.55-1.3) 01/28/20 16:10 Est GFR (CKD-EPI)AfAm 90.30 01/28/20 16:10 Est GFR (CKD-EPI)NonAf 77.91 01/28/20 16:10 Random Glucose 88 mg/dL (74-106) 01/28/20 16:10 Calcium 9.4 mg/dL (8.5-10.1) 01/28/20 16:10 Magnesium 2.3 mg/dL (1.8-2.4) 01/28/20 16:10 Total Bilirubin 0.4 mg/dL (0.2-1) 01/28/20 16:10 AST 19 U/L (15-37) 01/28/20 16:10 ALT 12 U/L (13-61) L 01/28/20 16:10 Alkaline Phosphatase 99 U/L (45-117) 01/28/20 16:10 Total Protein 7.8 g/dl (6.4-8.2) 01/28/20 16:10 Albumin 3.7 g/dl (3.4-5.0) 01/28/20 16:10 Lipase 134 U/L (73-393) 01/28/20 16:10 No transaminitis, Lipase WNL - Will control her pain with percocet - Patient feeling better. She is following up with Heme-Onc on Tuesday. 01/28/20 23:45 Past History - Medical History Allergies/Adverse Reactions: Allergies Allergy/AdvReac Type Severity Reaction Status Date / Time Sulfa (Sulfonamide Allergy Unknown Verified 03/09/17 12:06 Antibiotics) Home Medications: Ambulatory Orders Umeclidinium Brm/Vilanterol Tr [Anoro Ellipta 62.5-25 Mcg INH] 1 each IH DAILY 03/07/17 Docusate Sodium [Colace -] 100 mg PO BID PRN capsule 01/17/20 Pantoprazole Sodium [Protonix -] 40 mg PO DAILY #30 tablet.ec 01/17/20 Sennosides [Senna -] 1 tab PO HS tablet 01/17/20 Buspirone HCl [Buspar -] 5 mg PO BID #28 tablet 01/18/20 Ezetimibe [Zetia -] 10 mg PO DAILY #14 tablet 01/18/20 Pregabalin [Lyrica -] 100 mg PO TID #15 cap MDD 300 01/18/20 Sertraline HCl [Zoloft -] 100 mg PO DAILY #14 tablet 01/18/20 Anemia: No Asthma: Yes Cancer: Yes (lung and brain h/o radiation and chemo) Cardiac Disorders: No CVA: No COPD: Yes CHF: No Dementia: No Diabetes: Yes (niddm) GI Disorders: No Disorders: No HTN: Yes Hypercholesterolemia: Yes Kidney Stones: No Liver Disease: No Seizures: No Thyroid Disease: No - Surgical History Abdominal Surgery: No Appendectomy: No Cardiac Surgery: No Cholecystectomy: No Lung Surgery: No Neurologic Surgery: Yes (crainotomy for "the cancer") Orthopedic Surgery: No - Psycho-Social/Smoking History Smoking History: Never smoked Have you smoked in the past 12 months: Yes Number of Cigarettes Smoked Daily: 10 Cigars Per Day: 0 'Breaking Loose' booklet given: 01/14/20 - Substance Abuse Hx (Audit-C & DAST Scrn) How often the patient has a drink containing alcohol: Never Score: In Men: 4 or > Positive; In Women: 3 or > Positive: 0 Screen Result (Pos requires Nsg. Audit-10AR): Negative *Physical Exam - Vital Signs Last Vital Signs Temp Pulse Resp BP Pulse Ox 98.5 F 90 16 112/69 99 01/28/20 14:52 01/28/20 14:52 01/28/20 14:52 01/28/20 14:52 01/28/20 14:52 ED Treatment Course - LABORATORY CBC & Chemistry Diagram: 01/28/20 16:10 01/28/20 16:10 Discharge - Discharge Information Problems reviewed: Yes Clinical Impression/Diagnosis: Abdominal pain Condition: Stable Disposition: HOME - Admission No - Follow up/Referral Referrals: Jp Young [Primary Care Provider] - - Patient Discharge Instructions Patient Printed Discharge Instructions: DI for Abdominal Pain-Adult Additional Instructions: You were seen in the ER today for abdominal pain. Your pain resolved while you were here. Please return to the ED with any new or concerning symptoms. Please return if you develop worsening pain, vomiting, or a fever. Follow-up with your primary care provider and oncologist within the next week. - Post Discharge Activity
[2020-01-28 16:44] LABS: BASO % 0.6 % (0-2.0); EOS % 0.7 % (0-4.5); HEMATOCRIT 29.6 % (32.4-45.2); HEMOGLOBIN 9.3 GM/dL (10.7-15.3); LYMPH % 19.2 % (8-40); MCH 27.4 pg (25.7-33.7); MCHC 31.4 g/dl (32.0-36.0); MEAN PLT VOLUME 9.6 fl (7.5-11.1); MONO % 6.1 % (3.8-10.2); NEUT % 73.4 % (42.8-82.8); PLATELET COUNT 203 K/MM3 (134-434); RDW 20.4 % (11.6-15.6); WHITE BLOOD COUNT 7.7 K/mm3 (4.0-10.0)
[2020-01-28 17:04] LABS: ALBUMIN 3.7 g/dl (3.4-5.0); BILIRUBIN,TOTAL 0.4 mg/dL (0.2-1); BLOOD UREA NITROGEN 11.2 mg/dL (7-18); CALCIUM 9.4 mg/dL (8.5-10.1); CREATININE 0.8 mg/dL (0.55-1.3); MAGNESIUM 2.3 mg/dL (1.8-2.4); POTASSIUM 3.8 mmol/L (3.5-5.1); TOT PROT 7.8 g/dl (6.4-8.2)
--- NOTE | 2020-01-28 18:41 | PDOC ---
Documentation entered by Klaudia Degroot SCRIBE, acting as scribe for Addie Castorena MD. Addie Castorena MD: This documentation has been prepared by the Zane arteaga Sydney, SCRIBE, under my direction and personally reviewed by me in its entirety. I confirm that the documentation accurately reflects all work, treatment, procedures, and medical decision making performed by me. Attending Attestation - Resident Resident Name: Racquel Rod - ED Attending Attestation I have performed the following: I have examined & evaluated the patient, The case was reviewed & discussed with the resident, I agree w/resident's findings & plan, Exceptions are as noted - HPI HPI: 01/28/20 16:43 Patient is a 64 year old female with a significant past medical history of metastatic small cell lung cancer, previously on chemo (last 06/2019) who presents to the ED with 6 mo of intermittent periumbilical abdominal pain with associated non bloody diarrhea. Currently denies pain. As per patient, she presented to the ED two weeks ago for similar symptoms, and endorses the same 5/10 sharp abdominal pain today. Patient reports she had a recent MRI given this pain a few weeks ago and was found to have metastasis in her abdomen. She denies any change in the quality or severity of the pain today, and states she presented to the emergency department today because she ran out of Percocet. She has an appointment with her oncologist on Tuesday. Patient denies headache, Dizziness, focal weakness or numbness, shortness of breath, chest pain, nausea, vomiting, or constipation. Allergies: sulfa - Physicial Exam PE: 01/28/20 16:36 GENERAL: Awake, alert, and fully oriented, in no acute distress. Chronically ill appearing EYES: PERRLA, EOMI, sclera anicteric, conjunctiva clear ENT: Oropharynx clear without exudates. Moist mucosa NECK: Normal ROM, supple, no lymphadenopathy, JVD, or masses LUNGS: Breath sounds equal, clear to auscultation bilaterally. No wheezes, and no crackles HEART: Regular rate and rhythm, normal S1 and S2, no murmurs, rubs or gallops ABDOMEN: Soft, nontender, normoactive bowel sounds. No guarding, no rebound. No masses EXTREMITIES: Normal range of motion, no edema. No clubbing or cyanosis. No cords, erythema, or tenderness NEUROLOGICAL: Normal speech, cranial nerves intact, equal strength and sensation b/l SKIN: Warm, Dry, normal turgor, no rashes or lesions noted. - Medical Decision Making 01/28/20 18:37 64yo F with metastatic lung ca (known abd mets) presents to the ED for intermittent abd pain x6 months, requesting percocet Pt chronically ill appearing, non toxic, not in distress Abd benign, no ttp on serial exams by multiple providers Pt with chronic anemia, otherwise labs wnl She feels better after dose of percocet in the ED, requests DC to f/u with her oncologist as scheduled Tuesday Return precautions discussed I discussed the physical exam findings, ancillary test results and final diagnoses with the patient. I answered all of the patient's questions. The patient was satisfied with the care received and felt comfortable with the discharge plan and treatment plan. The patient will call their primary care physician within 24 hours to arrange follow-up and will return to the Emergency Department with any new, persistent or worsening symptoms. Discharge - Discharge Information Problems reviewed: Yes Clinical Impression/Diagnosis: Abdominal pain Condition: Stable Disposition: HOME - Follow up/Referral Referrals: Jp Young [Primary Care Provider] - - Patient Discharge Instructions Patient Printed Discharge Instructions: DI for Abdominal Pain-Adult Additional Instructions: You were seen in the ER today for abdominal pain. Your pain resolved while you were here. Please return to the ED with any new or concerning symptoms. Please return if you develop worsening pain, vomiting, or a fever. Follow-up with your primary care provider and oncologist within the next week. - Post Discharge Activity
== END 2020-01-28 17:53 | disposition home or self-care (01) ==
LOC: JER 14:50
DX: R10.9 Unspecified abdominal pain (principal)
CPT/HCPCS: 36415; 80053; 83690; 83735; 85025; 99283-25

== ENCOUNTER 2020-03-06 07:10 | Day surgery (SDC) | payer OTHER ==
[2020-03-06] MEDS ORDERED: SODIUM CHLORIDE 250 ML IV ONE (09:00)
[2020-03-06] MEDS ORDERED: ACETAMINOPHEN 325 MG TABLET (FP) PO ONE (09:30)
[2020-03-06] MEDS ORDERED: DEXAMETHASONE SODIUM PHOSPHATE 8 MG, DIPHENHYDRAMINE 25 MG in SODIUM CHLORIDE 100 ML IVPB ONE (09:30)
[2020-03-06] MEDS ORDERED: NIVOLUMAB IVPB ONE (10:00)
[2020-03-06] MEDS ORDERED: SODIUM CHLORIDE IVPB ONE ×2 (10:00→10:30)
[2020-03-06] MEDS ORDERED: IPILIMUMAB IVPB ONE (10:30)
[2020-03-06] MEDS ORDERED: POTASSIUM CHLORIDE 20 MEQ, MAGNESIUM SULFATE 1 GM in SODIUM CHLORIDE 500 ML IVPB ONE (11:00)
[2020-03-06 11:21] LABS: BASO % 0.4 % (0-2.0); EOS % 0.7 % (0-4.5); HEMATOCRIT 27.6 % (32.4-45.2); HEMOGLOBIN 8.8 GM/dL (10.7-15.3); LYMPH % 17.9 % (8-40); MCHC 31.8 g/dl (32.0-36.0); MEAN CELL VOLUME 88.2 fl (80-96); MEAN PLT VOLUME 9.1 fl (7.5-11.1); MONO % 7.3 % (3.8-10.2); NEUT % 73.7 % (42.8-82.8); PLATELET COUNT 180 K/MM3 (134-434); RBC 3.13 M/mm3 (3.60-5.2); RDW 19.7 % (11.6-15.6); WHITE BLOOD COUNT 6.4 K/mm3 (4.0-10.0)
[2020-03-06 11:58] LABS: ALBUMIN 3.2 g/dl (3.4-5.0); BILIRUBIN,DIRECT 0.1 mg/dL (0.0-0.2); BILIRUBIN,TOTAL 0.2 mg/dL (0.2-1); CALCIUM 8.8 mg/dL (8.5-10.1); CREATININE 1.2 mg/dL (0.55-1.3); MAGNESIUM 2.1 mg/dL (1.8-2.4); TOT PROT 7.3 g/dl (6.4-8.2)
[2020-03-06 16:39] VITALS: TEMP 98.4
[2020-03-06 17:19] VITALS: BP 104/68; PULSE 82
== END 2020-03-06 17:21 | disposition home or self-care (01) ==
LOC: JONCCHEMO 07:10
PROVIDERS: ATTEND Internal Medicine Hematology & Oncology
PROC: 3E04305 Introduction of Other Antineoplastic into Central Vein, Percutaneous Approach (ICD-10-PCS; principal; 2020-03-06)
PROC: 3E043GC Introduction of Other Therapeutic Substance into Central Vein, Percutaneous Approach (ICD-10-PCS; 2020-03-06)
PROC: 3E0437Z Introduction of Electrolytic and Water Balance Substance into Central Vein, Percutaneous Approach (ICD-10-PCS; 2020-03-06)
DX: Z51.11 Encounter for antineoplastic chemotherapy (principal); C34.91 Malignant neoplasm of unspecified part of right bronchus or lung
CPT/HCPCS: 36415; 80048; 80076; 83735; 85025; 96361; 96367; 96413; 96417; J9228; J9299

== ENCOUNTER 2020-03-27 06:19 | Day surgery (SDC) | payer OTHER ==
[2020-03-27] MEDS ORDERED: SODIUM CHLORIDE 250 ML IV ONE (09:00)
[2020-03-27] MEDS ORDERED: ACETAMINOPHEN 325 MG TABLET (FP) PO ONE (10:00)
[2020-03-27] MEDS ORDERED: DEXAMETHASONE SODIUM PHOSPHATE 8 MG, DIPHENHYDRAMINE 25 MG in SODIUM CHLORIDE 100 ML IVPB ONE (10:00)
[2020-03-27] MEDS ORDERED: SODIUM CHLORIDE IVPB ONE ×2 (10:30→11:00)
[2020-03-27] MEDS ORDERED: NIVOLUMAB IVPB ONE (10:30)
[2020-03-27] MEDS ORDERED: IPILIMUMAB IVPB ONE (11:00)
[2020-03-27 11:48] LABS: BASO % 0.5 % (0-2.0); EOS % 1.5 % (0-4.5); HEMATOCRIT 27.6 % (32.4-45.2); HEMOGLOBIN 8.7 GM/dL (10.7-15.3); LYMPH % 17.9 % (8-40); MCH 27.4 pg (25.7-33.7); MCHC 31.4 g/dl (32.0-36.0); MEAN CELL VOLUME 87.4 fl (80-96); MEAN PLT VOLUME 9.1 fl (7.5-11.1); MONO % 8.2 % (3.8-10.2); NEUT % 71.9 % (42.8-82.8); PLATELET COUNT 234 K/MM3 (134-434); RBC 3.16 M/mm3 (3.60-5.2); WHITE BLOOD COUNT 7.9 K/mm3 (4.0-10.0)
[2020-03-27 12:24] LABS: ALBUMIN 2.8 g/dl (3.4-5.0); ALK PHOS 143 U/L (45-117); AMYLASE 65 U/L (25-115); ANION GAP 6 MMOL/L (8-16); BILIRUBIN,DIRECT 0.1 mg/dL (0.0-0.2); BILIRUBIN,TOTAL < 0.1 mg/dL (0.2-1); BLOOD UREA NITROGEN 19.3 mg/dL (7-18); CALCIUM 8.2 mg/dL (8.5-10.1); CHLORIDE 113 mmol/L (98-107); CO2 25 mmol/L (21-32); CREATININE 0.8 mg/dL (0.55-1.3); GLUCOSE,RANDOM 117 mg/dL (74-106); LIPASE 156 U/L (73-393); MAGNESIUM 1.9 mg/dL (1.8-2.4); SGOT/AST 38 U/L (15-37); SGPT/ALT 41 U/L (13-61); SODIUM 144 mmol/L (136-145); TOT PROT 6.9 g/dl (6.4-8.2)
[2020-03-27 16:02] VITALS: TEMP 97.9
[2020-03-27 16:35] VITALS: BP 106/69; PULSE 77
[2020-03-27] MEDS ORDERED: PORTA CATH FLUSH 10 ML IVPUSH ONE (16:35)
== END 2020-03-27 16:25 | disposition home or self-care (01) ==
LOC: JONCCHEMO 06:19
PROVIDERS: ATTEND Internal Medicine Hematology & Oncology
DX: Z51.11 Encounter for antineoplastic chemotherapy (principal); C34.91 Malignant neoplasm of unspecified part of right bronchus or lung
CPT/HCPCS: 36415; 80048; 80076; 82150; 82533; 83690; 83735; 84439; 84443; 85025; 96361; 96367; 96413; 96415; 96417; J9228; J9299

== ENCOUNTER 2020-04-17 06:11 | Day surgery (SDC) | payer OTHER ==
[~2020-04-17 06:11] MED LIST changes: -CARBOPLATIN IVPB ONE; -DEXAMETHASONE SODIUM PHOSPHATE 10 MG, ONDANSETRON INJECTION 8 MG in SODIUM CHLORIDE 100 ML IVPB ONE; -ETOPOSIDE IV ONE; +PEGFILGRASTIM-CBQV (UDENYCA) 6 MG/0.6 ML SYRINGE SQ ONE; -SODIUM CHLORIDE 0.9% IV ONE; -SODIUM CHLORIDE 250 ML IV ONE; -SODIUM CHLORIDE IVPB ONE
[2020-04-17] MEDS ORDERED: SODIUM CHLORIDE 250 ML IV ONE (09:00)
[2020-04-17] MEDS ORDERED: DEXAMETHASONE SODIUM PHOSPHATE 8 MG, DIPHENHYDRAMINE 50 MG in SODIUM CHLORIDE 100 ML IVPB ONE (10:00)
[2020-04-17] MEDS ORDERED: ACETAMINOPHEN 325 MG TABLET (FP) PO ONE (10:00)
[2020-04-17] MEDS ORDERED: SODIUM CHLORIDE IVPB ONE ×2 (10:30→11:00)
[2020-04-17] MEDS ORDERED: NIVOLUMAB IVPB ONE (10:30)
[2020-04-17] MEDS ORDERED: IPILIMUMAB IVPB ONE (11:00)
[2020-04-17 12:11] LABS: BASO % 0.6 % (0-2.0); EOS % 0.7 % (0-4.5); HEMATOCRIT 31.5 % (32.4-45.2); HEMOGLOBIN 10.2 GM/dL (10.7-15.3); LYMPH % 16.4 % (8-40); MCH 28.4 pg (25.7-33.7); MCHC 32.3 g/dl (32.0-36.0); MEAN CELL VOLUME 87.9 fl (80-96); MEAN PLT VOLUME 8.8 fl (7.5-11.1); MONO % 8.1 % (3.8-10.2); NEUT % 74.2 % (42.8-82.8); PLATELET COUNT 246 K/MM3 (134-434); RBC 3.59 M/mm3 (3.60-5.2); RDW 19.9 % (11.6-15.6); WHITE BLOOD COUNT 8.1 K/mm3 (4.0-10.0)
[2020-04-17 12:46] LABS: POTASSIUM 3.6 mmol/L (3.5-5.1)
[2020-04-17 12:48] LABS: CALCIUM 9.7 mg/dL (8.5-10.1)
[2020-04-17 12:49] LABS: ALBUMIN 3.6 g/dl (3.4-5.0); BLOOD UREA NITROGEN 17.4 mg/dL (7-18); MAGNESIUM 2.3 mg/dL (1.8-2.4)
[2020-04-17 12:51] LABS: BILIRUBIN,DIRECT 0.1 mg/dL (0.0-0.2)
[2020-04-17 12:52] LABS: CREATININE 1.1 mg/dL (0.55-1.3)
[2020-04-17 12:53] LABS: BILIRUBIN,TOTAL 0.2 mg/dL (0.2-1); TOT PROT 8.2 g/dl (6.4-8.2)
[2020-04-17] MEDS ORDERED: PORTA CATH FLUSH 10 ML IVPUSH ONE (15:52)
[2020-04-17 15:53] VITALS: TEMP 98.4
[2020-04-17 16:19] VITALS: BP 132/78; PULSE 81
== END 2020-04-17 16:15 | disposition home or self-care (01) ==
LOC: JONCCHEMO 06:11
PROVIDERS: ATTEND Internal Medicine Hematology & Oncology
DX: Z51.11 Encounter for antineoplastic chemotherapy (principal); C34.91 Malignant neoplasm of unspecified part of right bronchus or lung
CPT/HCPCS: 36415; 80048; 80076; 82150; 83690; 83735; 84439; 84443; 85025; 96361; 96367; 96413; 96417; J9228; J9299

== ENCOUNTER 2020-06-25 20:49 | Inpatient (IN) | payer OTHER ==
[2020-06-25 20:59] VITALS: BMI 20.7
[2020-06-25 23:14] LABS: BASO % 0.7 % (0-2.0); EOS % 3.3 % (0-4.5); HEMATOCRIT 33.5 % (32.4-45.2); HEMOGLOBIN 10.7 GM/dL (10.7-15.3); LYMPH % 31.5 % (8-40); MCH 28.8 pg (25.7-33.7); MEAN CELL VOLUME 90.2 fl (80-96); MEAN PLT VOLUME 9.4 fl (7.5-11.1); MONO % 8.9 % (3.8-10.2); NEUT % 55.6 % (42.8-82.8); PLATELET COUNT 181 K/MM3 (134-434); RBC 3.72 M/mm3 (3.60-5.2); RDW 16.5 % (11.6-15.6); WHITE BLOOD COUNT 5.6 K/mm3 (4.0-10.0)
[2020-06-25 23:32] LABS: POTASSIUM 4.6 mmol/L (3.5-5.1)
[2020-06-25 23:35] LABS: ALBUMIN 3.9 g/dl (3.4-5.0); BLOOD UREA NITROGEN 30.1 mg/dL (7-18)
[2020-06-25 23:38] LABS: CREATININE 1.2 mg/dL (0.55-1.3)
[2020-06-25 23:39] LABS: BILIRUBIN,TOTAL 0.2 mg/dL (0.2-1); TOT PROT 7.8 g/dl (6.4-8.2)
[2020-06-26 07:14] LABS: HEMATOCRIT 33.3 % (32.4-45.2); HEMOGLOBIN 10.8 GM/dL (10.7-15.3); MCH 29.2 pg (25.7-33.7); MCHC 32.5 g/dl (32.0-36.0); MEAN PLT VOLUME 9.1 fl (7.5-11.1); PLATELET COUNT 183 K/MM3 (134-434); RBC 3.71 M/mm3 (3.60-5.2); RDW 16.2 % (11.6-15.6)
[2020-06-26 07:24] LABS: POTASSIUM 4.1 mmol/L (3.5-5.1)
[2020-06-26 07:32] LABS: BLOOD UREA NITROGEN 24.2 mg/dL (7-18)
[2020-06-26 07:34] LABS: CALCIUM 9.2 mg/dL (8.5-10.1)
[2020-06-26 07:36] LABS: CREATININE 0.9 mg/dL (0.55-1.3)
[2020-06-26] MEDS ORDERED: ACETAMINOPHEN 325 MG TABLET (FP) PO PRN (08:27)
[2020-06-26] MEDS ORDERED: ENOXAPARIN NA (PORCINE) 40 MG/0.4 ML DISP.SYRIN SQ ONE (09:58)
[2020-06-26] MEDS ORDERED: ACETAMINOPHEN 325 MG TABLET (FP) ONE (09:58)
[2020-06-26] MEDS: ENOXAPARIN NA (PORCINE) 40 MG/0.4 ML DISP.SYRIN SQ SCH (10:03)
[2020-06-26] MEDS ORDERED: ACETAMINOPHEN 1000 MG/100 ML VIAL (NON FORMULARY) IVPB ONE (14:46)
[2020-06-26] MEDS ORDERED: LACTATED RINGERS SOLUTION 1,000 ML/1,000 ML INFUS.BAG IV SCH (15:00)
[2020-06-26] MEDS ORDERED: ACETAMINOPHEN INJECTION 100 ML IVPB ONE (15:25)
[2020-06-26] MEDS ORDERED: PANTOPRAZOLE SODIUM 40 MG/100 ML BAG IVPB ONE (16:35)
[2020-06-26] MEDS: PANTOPRAZOLE SODIUM 40 MG VIAL IVPUSH SCH (16:43)
[2020-06-26] MEDS ORDERED: DEXAMETHASONE SOD PHOSPHATE 4 MG/1 ML VIAL ONE (18:28)
[2020-06-26] MEDS: DEXAMETHASONE SOD PHOSPHATE 4 MG/1 ML VIAL IVPUSH SCH (18:33)
[2020-06-26] MEDS: INSULIN SLIDING SCALE (NOVOLOG) 1 VIAL SQ SCH (22:41)
[2020-06-27] MEDS: DEXAMETHASONE SOD PHOSPHATE 4 MG/1 ML VIAL IVPUSH SCH ×3 (05:58→17:02)
[2020-06-27] MEDS: INSULIN SLIDING SCALE (NOVOLOG) 1 VIAL SQ SCH ×3 (06:55→16:50)
[2020-06-27 08:40] LABS: HEMATOCRIT 32.5 % (32.4-45.2); HEMOGLOBIN 10.7 GM/dL (10.7-15.3); MCH 29.5 pg (25.7-33.7); MCHC 32.8 g/dl (32.0-36.0); MEAN CELL VOLUME 89.7 fl (80-96); MEAN PLT VOLUME 9.8 fl (7.5-11.1); PLATELET COUNT 181 K/MM3 (134-434); RBC 3.62 M/mm3 (3.60-5.2); RDW 15.4 % (11.6-15.6); WHITE BLOOD COUNT 4.8 K/mm3 (4.0-10.0)
[2020-06-27 08:55] LABS: POTASSIUM 4.2 mmol/L (3.5-5.1)
[2020-06-27 09:14] LABS: CALCIUM 9.5 mg/dL (8.5-10.1)
[2020-06-27 09:15] LABS: BLOOD UREA NITROGEN 21.4 mg/dL (7-18)
[2020-06-27 09:18] LABS: CREATININE 0.9 mg/dL (0.55-1.3)
[2020-06-27] MEDS: PANTOPRAZOLE SODIUM 40 MG VIAL IVPUSH SCH (09:58)
[2020-06-27] MEDS: ENOXAPARIN NA (PORCINE) 40 MG/0.4 ML DISP.SYRIN SQ SCH (09:58)
[2020-06-27] MEDS ORDERED: PANTOPRAZOLE 40 MG TABLET PO SCH (10:00)
[2020-06-27] MEDS: UMECLIDINIUM/VILANTEROL (ANORO) 62.5/25 MCG INHALER IH SCH (12:14)
[2020-06-27] MEDS ORDERED: PT OWN MED DRAWER 7, Y5N ONE ×2 (12:14→12:26)
[2020-06-28] MEDS: DEXAMETHASONE SOD PHOSPHATE 4 MG/1 ML VIAL IVPUSH SCH ×3 (03:09→18:30)
[2020-06-28] MEDS: INSULIN SLIDING SCALE (NOVOLOG) 1 VIAL SQ SCH ×4 (06:21→17:09)
[2020-06-28] MEDS ORDERED: LACTATED RINGERS SOLUTION 1000 ML INFUS.BAG IV ONE ×3 (07:39→17:17)
[2020-06-28] MEDS: SIMETHICONE 80 MG TAB.CHEW (FP) PO PRN ×2 (09:41→21:46)
[2020-06-28] MEDS: ENOXAPARIN NA (PORCINE) 40 MG/0.4 ML DISP.SYRIN SQ SCH (09:41)
[2020-06-28] MEDS: PANTOPRAZOLE SODIUM 40 MG VIAL IVPUSH SCH (09:41)
[2020-06-28] MEDS ORDERED: FAMOTIDINE 20 MG TABLET PO SCH (10:00)
[2020-06-28] MEDS: UMECLIDINIUM/VILANTEROL (ANORO) 62.5/25 MCG INHALER IH SCH (10:04)
[2020-06-28 10:52] LABS: BASO % 0.2 % (0-2.0); HEMOGLOBIN 10.4 GM/dL (10.7-15.3); LYMPH % 9.4 % (8-40); MCH 29.1 pg (25.7-33.7); MCHC 32.3 g/dl (32.0-36.0); MEAN CELL VOLUME 90.1 fl (80-96); MEAN PLT VOLUME 9.6 fl (7.5-11.1); MONO % 4.9 % (3.8-10.2); NEUT % 85.5 % (42.8-82.8); PLATELET COUNT 169 K/MM3 (134-434); RBC 3.56 M/mm3 (3.60-5.2); RDW 15.9 % (11.6-15.6); WHITE BLOOD COUNT 10.7 K/mm3 (4.0-10.0)
[2020-06-28 11:12] LABS: POTASSIUM 4.1 mmol/L (3.5-5.1)
[2020-06-28 11:15] LABS: ALBUMIN 3.7 g/dl (3.4-5.0); BLOOD UREA NITROGEN 34.9 mg/dL (7-18); CALCIUM 9.1 mg/dL (8.5-10.1)
[2020-06-28 11:18] LABS: CREATININE 1.2 mg/dL (0.55-1.3)
[2020-06-28 11:20] LABS: BILIRUBIN,TOTAL 0.2 mg/dL (0.2-1); TOT PROT 7.5 g/dl (6.4-8.2)
[2020-06-28] MEDS ORDERED: DOCUSATE SODIUM 100 MG CAPSULE (FP) PO SCH (16:15)
[2020-06-28] MEDS ORDERED: LACTATED RINGERS SOLUTION 1,000 ML/1,000 ML INFUS.BAG IV SCH (16:15)
[2020-06-29] MEDS ORDERED: ACETAMINOPHEN 1000 MG/100 ML VIAL (NON FORMULARY) IVPB ONE (00:41)
[2020-06-29] MEDS: INSULIN SLIDING SCALE (NOVOLOG) 1 VIAL SQ SCH ×4 (07:00→22:27)
[2020-06-29 07:49] LABS: BASO % 0.1 % (0-2.0); HEMATOCRIT 31.8 % (32.4-45.2); HEMOGLOBIN 10.5 GM/dL (10.7-15.3); LYMPH % 16.2 % (8-40); MCH 29.6 pg (25.7-33.7); MCHC 33.1 g/dl (32.0-36.0); MEAN CELL VOLUME 89.3 fl (80-96); MEAN PLT VOLUME 10.6 fl (7.5-11.1); MONO % 4.5 % (3.8-10.2); NEUT % 79.2 % (42.8-82.8); PLATELET COUNT 151 K/MM3 (134-434); RBC 3.56 M/mm3 (3.60-5.2); WHITE BLOOD COUNT 9.9 K/mm3 (4.0-10.0)
[2020-06-29 08:09] LABS: POTASSIUM 4.4 mmol/L (3.5-5.1)
[2020-06-29 08:39] LABS: BLOOD UREA NITROGEN 33.7 mg/dL (7-18); CALCIUM 8.8 mg/dL (8.5-10.1); MAGNESIUM 2.2 mg/dL (1.8-2.4)
[2020-06-29 08:42] LABS: CREATININE 1.1 mg/dL (0.55-1.3); PHOSPHOROUS 3.2 mg/dL (2.5-4.9)
[2020-06-29] MEDS ORDERED: PT OWN MED DRAWER 7, Y5N ONE (10:18)
[2020-06-29] MEDS: PANTOPRAZOLE SODIUM 40 MG VIAL IVPUSH SCH (10:30)
[2020-06-29] MEDS: DEXAMETHASONE SOD PHOSPHATE 4 MG/1 ML VIAL IVPUSH SCH ×2 (10:30→17:11)
[2020-06-29] MEDS: ENOXAPARIN NA (PORCINE) 40 MG/0.4 ML DISP.SYRIN SQ SCH (10:30)
[2020-06-29] MEDS: UMECLIDINIUM/VILANTEROL (ANORO) 62.5/25 MCG INHALER IH SCH (10:31)
[2020-06-30] MEDS: DEXAMETHASONE SOD PHOSPHATE 4 MG/1 ML VIAL IVPUSH SCH ×3 (00:59→17:08)
[2020-06-30] MEDS: UMECLIDINIUM/VILANTEROL (ANORO) 62.5/25 MCG INHALER IH SCH ×2 (11:00→17:09)
[2020-06-30] MEDS: ENOXAPARIN NA (PORCINE) 40 MG/0.4 ML DISP.SYRIN SQ SCH ×2 (11:00→17:01)
[2020-06-30] MEDS: INSULIN SLIDING SCALE (NOVOLOG) 1 VIAL SQ SCH ×4 (12:20→21:55)
[2020-06-30] MEDS ORDERED: LIDOCAINE VISCOUS 2% ORAL/TOP 20 ML UNIT-DOSE CUP ONE (12:45)
[2020-06-30] MEDS ORDERED: ONDANSETRON 4 MG TABLET PO PRN (17:05)
[2020-06-30] MEDS: PANTOPRAZOLE SODIUM 40 MG VIAL IVPUSH SCH (17:10)
[2020-06-30] MEDS ORDERED: ALBUTEROL SO4 HFA INHALER IH PRN (17:15)
[2020-06-30] MEDS ORDERED: PT OWN MED DRAWER 7, Y5N ONE (21:50)
[2020-06-30] MEDS: MOMETASONE FUROATE 220 MCG/IH INHALER IH SCH (21:58)
[2020-07-01] MEDS: DEXAMETHASONE SOD PHOSPHATE 4 MG/1 ML VIAL IVPUSH SCH ×3 (02:10→21:55)
[2020-07-01] MEDS: INSULIN SLIDING SCALE (NOVOLOG) 1 VIAL SQ SCH ×4 (06:42→21:56)
[2020-07-01] MEDS ORDERED: ACETAMINOPHEN WITH CODEINE 300MG/30MG TABLET PO PRN (08:32)
[2020-07-01] MEDS ORDERED: LACTATED RINGERS SOLUTION 1000 ML INFUS.BAG IV ONE (10:10)
[2020-07-01] MEDS: PANTOPRAZOLE SODIUM 40 MG VIAL IVPUSH SCH (10:31)
[2020-07-01] MEDS: ENOXAPARIN NA (PORCINE) 40 MG/0.4 ML DISP.SYRIN SQ SCH (10:32)
[2020-07-01] MEDS: UMECLIDINIUM/VILANTEROL (ANORO) 62.5/25 MCG INHALER IH SCH (10:32)
[2020-07-01] MEDS ORDERED: PT OWN MED DRAWER 7, Y5N ONE (21:48)
[2020-07-01] MEDS: MOMETASONE FUROATE 220 MCG/IH INHALER IH SCH (21:56)
[2020-07-01] MEDS ORDERED: CITALOPRAM HYDROBROMIDE 10 MG TABLET PO SCH (22:00)
[2020-07-02] MEDS: DEXAMETHASONE SOD PHOSPHATE 4 MG/1 ML VIAL IVPUSH SCH ×4 (02:13→17:36)
[2020-07-02] MEDS: INSULIN SLIDING SCALE (NOVOLOG) 1 VIAL SQ SCH ×4 (02:13→16:29)
[2020-07-02 08:17] LABS: POTASSIUM 5.1 mmol/L (3.5-5.1)
[2020-07-02 08:18] VITALS: PULSE 59
[2020-07-02 08:26] LABS: BLOOD UREA NITROGEN 30.8 mg/dL (7-18); CALCIUM 8.8 mg/dL (8.5-10.1)
[2020-07-02] MEDS ORDERED: LACTATED RINGERS SOLUTION 1,000 ML/1,000 ML INFUS.BAG IV SCH (09:00)
[2020-07-02] MEDS: UMECLIDINIUM/VILANTEROL (ANORO) 62.5/25 MCG INHALER IH SCH (09:54)
[2020-07-02] MEDS: ENOXAPARIN NA (PORCINE) 40 MG/0.4 ML DISP.SYRIN SQ SCH (09:56)
[2020-07-02] MEDS: PANTOPRAZOLE SODIUM 40 MG VIAL IVPUSH SCH (09:58)
[2020-07-02] MEDS ORDERED: MULTIVITAMINS (DAILY MVI) TABLET (FP) PO SCH (10:00)
[2020-07-02 14:04] VITALS: BP 100/54; TEMP 98.2
== END 2020-07-02 20:19 | disposition home or self-care (01) | DRG 843 ==
LOC: SUATTDRO 20:49 → JER 20:49 → JERBED 22:25 → J4W 06-26 23:47
PROVIDERS: ADMIT Student in an Organized Health Care Education/Training Program; ATTEND Internal Medicine
PROC: B24BZZ4 Ultrasonography of Heart with Aorta, Transesophageal (ICD-10-PCS; principal; 2020-06-30 12:30)
DX: D49.89 Neoplasm of unspecified behavior of other specified sites (principal); G93.6 Cerebral edema; F11.20 Opioid dependence, uncomplicated; F14.20 Cocaine dependence, uncomplicated; F31.9 Bipolar disorder, unspecified; C34.90 Malignant neoplasm of unspecified part of unspecified bronchus or lung; C79.31 Secondary malignant neoplasm of brain; C79.70 Secondary malignant neoplasm of unspecified adrenal gland; E11.9 Type 2 diabetes mellitus without complications; I10 Essential (primary) hypertension; E78.5 Hyperlipidemia, unspecified; K21.9 Gastro-esophageal reflux disease without esophagitis; F10.10 Alcohol abuse, uncomplicated; D64.9 Anemia, unspecified; J45.909 Unspecified asthma, uncomplicated; F41.8 Other specified anxiety disorders; Z79.4 Long term (current) use of insulin; I34.0 Nonrheumatic mitral (valve) insufficiency; I36.1 Nonrheumatic tricuspid (valve) insufficiency
CPT/HCPCS: 36415; 70552-TC; 71046-TC-FY; 71260-TC; 74177-TC; 80048; 80053; 82272; 82550; 82962; 83605; 83690; 83735; 84100; 84484; 85025; 85027; 85610; 85730; 93005; 93010; 93306-TC; 93312; 93325; 97116-GP; 97162-GP; 99285-25; A9579; C1887; C9803; J0131; Q9967; U0003

== ENCOUNTER 2020-07-18 10:30 | Emergency (ER) | payer OTHER ==
[2020-07-18 11:02] VITALS: BMI 26.2
[2020-07-18 11:54] LABS: EPI CELLS >36 /uL (0-25.1); HYALINE CASTS 12 /uL (0-3.1); URINE APPEARANCE CLOUDY; URINE BACTERIA 620 /uL (0-1359); URINE BILIRUBIN NEGATIVE (NEGATIVE); URINE COLOR YELLOW; URINE GLUCOSE (UA) NEGATIVE (NEGATIVE); URINE KETONE TRACE (NEGATIVE); URINE LEUK ESTERASE NEGATIVE (NEGATIVE); URINE NITRITE NEGATIVE (NEGATIVE); URINE PROTEIN 1+ (NEGATIVE); URINE UROBILINOGEN 0.2 mg/dL (0.2-1.0)
[2020-07-18 11:55] LABS: URINE RBC 32.2 /uL (0-23.9); URINE WBC 69.1 /uL (0-25.8)
[2020-07-18] MEDS ORDERED: DEXAMETHASONE SOD PHOSPHATE 10 MG/1 ML VIAL IVPUSH ONE (14:01)
[2020-07-18 14:02] LABS: BASO % 1.2 % (0-2.0); HEMOGLOBIN 10.8 GM/dL (10.7-15.3); LYMPH % 15.7 % (8-40); MCH 29.3 pg (25.7-33.7); MCHC 32.6 g/dl (32.0-36.0); MEAN CELL VOLUME 89.7 fl (80-96); MEAN PLT VOLUME 9.2 fl (7.5-11.1); MONO % 5.7 % (3.8-10.2); NEUT % 76.4 % (42.8-82.8); PLATELET COUNT 169 K/MM3 (134-434); RBC 3.68 M/mm3 (3.60-5.2); RDW 16.1 % (11.6-15.6); WHITE BLOOD COUNT 7.8 K/mm3 (4.0-10.0)
[2020-07-18] MEDS ORDERED: DEXAMETHASONE SOD PHOSPHATE 10 MG/1 ML VIAL ONE (14:09)
[2020-07-18 14:10] LABS: INR 1.02 (0.83-1.09); PROTHROMBIN TIME (PATIENT) 12.5 SEC (9.7-13.0)
[2020-07-18 14:13] LABS: ACTIVATED PTT 21.4 SECONDS (25.2-36.5)
[2020-07-18 14:23] LABS: CHLORIDE 107 mmol/L (98-107); POTASSIUM 3.8 mmol/L (3.5-5.1); SODIUM 137 mmol/L (136-145)
[2020-07-18 14:26] LABS: BLOOD UREA NITROGEN 28.7 mg/dL (7-18); CALCIUM 9.2 mg/dL (8.5-10.1)
[2020-07-18 14:27] LABS: ALBUMIN 3.8 g/dl (3.4-5.0); ANION GAP 8 MMOL/L (8-16); CO2 23 mmol/L (21-32); GLUCOSE,RANDOM 83 mg/dL (74-106)
[2020-07-18] MEDS ORDERED: SODIUM CHLORIDE 1,000 ML IV STA (14:28)
[2020-07-18 14:29] LABS: SGOT/AST 145 U/L (15-37); SGPT/ALT 72 U/L (13-61)
[2020-07-18 14:30] LABS: CREATININE 0.9 mg/dL (0.55-1.3)
[2020-07-18 14:31] LABS: BILIRUBIN,TOTAL 0.5 mg/dL (0.2-1); TOT PROT 7.5 g/dl (6.4-8.2)
[2020-07-18 14:32] LABS: ALK PHOS 119 U/L (45-117)
[2020-07-18 22:39] VITALS: BP 130/72; PULSE 65; TEMP 98.5
== END 2020-07-18 23:07 | disposition short-term general hospital (02) ==
LOC: JER 10:30
PROC: 3E033NZ Introduction of Analgesics, Hypnotics, Sedatives into Peripheral Vein, Percutaneous Approach (ICD-10-PCS; principal; 2020-07-18)
PROC: 3E0337Z Introduction of Electrolytic and Water Balance Substance into Peripheral Vein, Percutaneous Approach (ICD-10-PCS; 2020-07-18)
DX: R55 Syncope and collapse (principal); R90.0 Intracranial space-occupying lesion found on diagnostic imaging of central nervous system; M62.82 Rhabdomyolysis
CPT/HCPCS: 36415; 70450-TC; 71045-TC-FY; 72125-TC; 73502-TC-RT-FY; 73562-TC-RT-FY; 80053; 81003; 82550; 82553; 83735; 84100; 84484; 85025; 85610; 85730; 86850; 86900; 86901; 87086; 93005; 93010; 99291; C9803; J1100; U0003